=== PATIENT | female | born 1960 | race Caucasian/White ===

== ENCOUNTER 2017-10-19 17:48 | Observation (INO) | payer MEDICARE, OTHER ==
--- NOTE | 2017-10-19 18:28 | ED ---
Chest Pain HPI - General Source: patient Mode of arrival: ambulatory Limitations: no limitations <Tabitha Bentley - Last Filed: 10/19/17 19:35> <Emanuel Jarrell - Last Filed: 10/19/17 21:09> - General Chief Complaint: Chest Pain Stated Complaint: chest pains Time Seen by Provider: 10/19/17 18:17 - History of Present Illness Initial Comments: 27 years old female comes in with the chest pain, she said chest pain is ongoing for 2 days she does have a history of firm coronary arteries going into spasm and she states denies any shortness of breath shortness of breath only happens with the exertion she denies any pleuritic chest pain denies any fever no chills she has not been coughing up any phlegm she denies any abdominal pain no frequency urgency dysuria no symptoms of TIA or CVA (Tabitha Bentley) - Related Data Home Medications Medication Instructions Recorded Confirmed Aspirin 325 mg PO DAILY 04/18/15 10/19/17 Isosorbide Mononitrate ER [Imdur] 30 mg PO DAILY 04/18/15 10/19/17 Levothyroxine Sodium [Synthroid] 150 mcg PO DAILY 10/19/17 10/19/17 Allergies Allergy/AdvReac Type Severity Reaction Status Date / Time No Known Allergies Allergy Verified 10/19/17 18:25 Review of Systems ROS Other: All systems not noted in ROS Statement are negative. <Tabitha Bentley - Last Filed: 10/19/17 19:35> ROS Other: All systems not noted in ROS Statement are negative. <Emanuel Jarrell - Last Filed: 10/19/17 21:09> ROS Statement: Those systems with pertinent positive or pertinent negative responses have been documented in the HPI. EKG Findings - EKG Comments: EKG Findings:: EKG shows normal sinus rhythm rate of 89, AR 180, QRS 86, QTc 440 <Emanuel Jarrell - Last Filed: 10/19/17 21:09> Past Medical History Past Medical History: Diabetes Mellitus, Sleep Apnea/CPAP/BIPAP Additional Past Medical History / Comment(s): coronary arthery spasms, gallstones History of Any Multi-Drug Resistant Organisms: None Reported Past Surgical History: Hysterectomy, Joint Replacement Additional Past Surgical History / Comment(s): left knee replacement Past Anesthesia/Blood Transfusion Reactions: Family History of Problems w/ Anesthesia Additional Past Anesthesia/Blood Transfusion Reaction / Comment(s): sister has diff coming out Past Psychological History: No Psychological Hx Reported Smoking Status: Former smoker Past Alcohol Use History: None Reported Past Drug Use History: None Reported - Past Family History Sister(s) Family Medical History: Cancer, Deep Vein Thrombosis (DVT) <Tabitha Bentley - Last Filed: 10/19/17 19:35> General Exam Limitations: no limitations <Tabitha Bentley - Last Filed: 10/19/17 19:35> <Emanuel Jarrell - Last Filed: 10/19/17 21:09> - General Exam Comments Initial Comments: General: The patient is awake and alert, in no distress, and does not appear acutely ill. Skin: Skin is warm and dry and no rashes or lesions are noted. Eye: Pupils are equal, round and reactive to light, extra-ocular movements are intact; there is normal conjunctiva bilaterally. Ears, nose, mouth and throat: There are moist mucous membranes and no oral lesions. Neck: The neck is supple, there is no tenderness o. Cardiovascular: There is a regular rate and rhythm. No murmur, rub or gallop is appreciated. Respiratory: To auscultation bilateral, crease breath sounds in general no rales rhonchi's noticed Gastrointestinal: Soft, non-distended, non-tender abdomen without masses or organomegaly noted. There is no rebound or guarding present. Bowel sounds are unremarkable. Back: There is no tenderness to palpation in the midline. There is no obvious deformity. Musculoskeletal: Normal ROM, no tenderness, There is no pedal edema. There is no calf tenderness or swelling. No cords were appreciated. Neurological: CN II-XII intact, Cranial nerves III through XII are intact. There are no obvious motor or sensory deficits. Coordination appears grossly intact. Speech is normal. Psychiatric: Cooperative, appropriate mood & affect, normal judgment. (Tabitha Bentley) Course <Tabitha Bentley - Last Filed: 10/19/17 19:35> <Emanuel Jarrell - Last Filed: 10/19/17 21:09> Vital Signs 10/19/17 10/19/17 10/19/17 17:53 19:38 20:48 Temperature 97.6 F Pulse Rate 91 75 62 Respiratory 18 18 18 Rate Blood Pressure 146/77 119/66 114/66 O2 Sat by Pulse 97 97 97 Oximetry Patient endorsed to Dr Jarrell at 1935 for further evaluation and management ( Tabitha Bentley) Chest Pain MDM <Tabitha Bentley - Last Filed: 10/19/17 19:35> <Emanuel Jarrell - Last Filed: 10/19/17 21:09> - MDM 57 female the ER for evaluation of chest pain, obesity and diabetes, patient of urinary for cardiac observation (Emanuel Jarrell) Critical Care Time Critical Care Time: Yes Total Critical Care Time: 31 <Emanuel Jarrell - Last Filed: 10/19/17 21:09> Disposition <Tabitha Bentley - Last Filed: 10/19/17 19:35> <Emanuel Jarrell - Last Filed: 10/19/17 21:09> Clinical Impression: Chest pain Disposition: ADMITTED IP TO THIS HOSP Condition: Undetermined
[2017-10-19 18:55] LABS: Basophils % (A) 0 %; Eosinophils # (A) 0.2 k/uL (0-0.7); Eosinophils % (A) 3 %; HCT 39.4 % (34.0-46.0); Lymphocytes # (A) 1.3 k/uL (1.0-4.8); Lymphocytes % (A) 28 %; MCH 32.5 pg (25.0-35.0); MCHC 35.4 g/dL (31.0-37.0); MCV 91.8 fL (80.0-100.0); Mean Platelet Volume 6.7; Monocytes # (A) 0.2 k/uL (0-1.0); Monocytes % (A) 5 %; Neutrophils # (A) 2.7 k/uL (1.3-7.7); Neutrophils % (A) 61 %; Platelet Count 270 k/uL (150-450); RBC 4.29 m/uL (3.80-5.40); RDW 13.2 % (11.5-15.5); WBC 4.4 k/uL (3.8-10.6)
[2017-10-19 19:04] LABS: ALT 32 U/L (9-52); AST 37 U/L (14-36); Albumin 4.2 g/dL (3.5-5.0); Alkaline Phosphatase 93 U/L (38-126); Anion Gap 15 mmol/L; Blood Urea Nitrogen 13 mg/dL (7-17); Carbon Dioxide 22 mmol/L (22-30); Chloride 106 mmol/L (98-107); Glucose 167 mg/dL (74-99); Magnesium 1.9 mg/dL (1.6-2.3); Potassium 3.9 mmol/L (3.5-5.1); Sodium 143 mmol/L (137-145); Total Bilirubin 0.3 mg/dL (0.2-1.3); Total Protein 7.4 g/dL (6.3-8.2)
--- NOTE | 2017-10-19 19:09 | XR ---
EXAMINATION TYPE: XR chest 2V DATE OF EXAM: 10/19/2017 COMPARISON: 02/09/2012 HISTORY: Chest pain TECHNIQUE: Frontal and lateral views of the chest are obtained. FINDINGS: There is no focal air space opacity, pleural effusion, or pneumothorax seen. The cardiac silhouette size is within normal limits. The osseous structures are intact. [id number] multi level degenerative changes of the thoracic spine are noted. IMPRESSION: No acute cardiopulmonary process.
[2017-10-19 19:18] LABS: Creatine Kinase 109 U/L (30-135); Partial Thromboplastin Time 24.6 sec (22.0-30.0); Prothrombin Time 10.1 sec (9.0-12.0)
[2017-10-19 19:31] LABS: Creatine Kinase MB 0.6 ng/mL (0.0-2.4); Troponin I <0.012 ng/mL (0.000-0.034)
[2017-10-19] MEDS ORDERED: NITROGLYCERIN SL TABS 0.4 MG TAB SUBLINGUAL PRN (20:50)
[2017-10-19] MEDS ORDERED: HEPARIN SODIUM,PORCINE 5,000 UNIT/ML 1 ML VIAL IV ONE (20:50)
[2017-10-19] MEDS ORDERED: ASPIRIN 81 MG PO STA (20:57)
[2017-10-19] MEDS ORDERED: HEPARIN SODIUM,PORCINE 5,000 UNIT/ML 1 ML VIAL IV PRN (20:57)
[2017-10-19] MEDS ORDERED: HEPARIN SOD,PORK IN 0.45% NACL 25,000 UNIT in 0.45% NACL 1 500ML.BAG IV SCH (21:00)
[2017-10-19] MEDS: METOPROLOL TARTRATE 25 MG TAB PO SCH (22:11)
[2017-10-20 00:48] LABS: Creatine Kinase 95 U/L (30-135)
[2017-10-20 01:01] LABS: Creatine Kinase MB 0.5 ng/mL (0.0-2.4); Troponin I <0.012 ng/mL (0.000-0.034)
[2017-10-20 01:57] VITALS: RESP 16
[2017-10-20 07:17] LABS: Mean Platelet Volume 6.9; Platelet Count 176 k/uL (150-450)
[2017-10-20 07:45] LABS: Creatine Kinase 85 U/L (30-135)
[2017-10-20 07:58] LABS: Creatine Kinase MB 0.4 ng/mL (0.0-2.4); Troponin I <0.012 ng/mL (0.000-0.034)
[2017-10-20 08:54] LABS: Cholesterol 209 mg/dL (<200); HDL Cholesterol 49 mg/dL (40-60); LDL Cholesterol,Calculated 103 mg/dL (0-99); Triglycerides 283 mg/dL (<150)
[2017-10-20] MEDS ORDERED: ASPIRIN 325 MG TAB PO SCH (09:30)
[2017-10-20] MEDS: ATORVASTATIN 80 MG TAB PO SCH (09:49)
[2017-10-20] MEDS: METOPROLOL TARTRATE 25 MG TAB PO SCH ×2 (09:49→21:08)
[2017-10-20] MEDS: ASPIRIN 325 MG TAB PO SCH (09:49)
--- NOTE | 2017-10-20 09:56 | P.CRDCN ---
History of Present Illness History of present illness: Addendum to my note/consult Patient symptoms of recurrent chest discomfort dizziness feeling imbalanced and palpitations without any rhythm irregularities on examination her pulse are all consistent with the use of Imdur and possible intolerance to Imdur We have documented dips in blood pressure I would suggest continue Imdur, performing a tilt table test but my long-term plan is either to reduce Imdur or stop it completely. She is a diabetic and she needs to be on statins with the goal of at least 30-50 % reduction in her LDL Her baseline LDL is 103, total cholesterol 209, triglycerides 283 HDL 49 Renal function is normal BUN 13 creatinine 0.78 Impression Morbid obesity Atypical chest discomfort, recurrent with 3 normal cardiac enzymes and nonspecific ST-T changes on serial ECGs Past history of artery spasm that was diagnosed several years back Type 2 diabetes Obstructive sleep apnea using CPAP mask Possible intolerance to isosorbide that could explain her symptomatology Suggest 2-D echo and Doppler study to assess cardiac structure and function Weight reduction she is morbidly obese Reduce the dose of Imdur or stop it completely Statins with a goal of reducing the LDL to between 50-70 mg/dL The patient is a candidate for dajuan inhibitors/angiotensin receptor blockers but this may be an issue if she has fluctuating blood pressures. Hemoglobin A1c Past Medical History Past Medical History: Diabetes Mellitus, Sleep Apnea/CPAP/BIPAP, Thyroid Disorder Additional Past Medical History / Comment(s): coronary artery spasms History of Any Multi-Drug Resistant Organisms: None Reported Past Surgical History: Cholecystectomy, Hysterectomy, Joint Replacement Additional Past Surgical History / Comment(s): left knee replacement Past Anesthesia/Blood Transfusion Reactions: Family History of Problems w/ Anesthesia Additional Past Anesthesia/Blood Transfusion Reaction / Comment(s): sister has diff coming out Past Psychological History: No Psychological Hx Reported Smoking Status: Former smoker Past Alcohol Use History: None Reported Past Drug Use History: None Reported - Past Family History Sister(s) Family Medical History: Cancer, Deep Vein Thrombosis (DVT) Medications and Allergies Home Medications Medication Instructions Recorded Confirmed Type Aspirin 325 mg PO DAILY 04/18/15 10/19/17 History Isosorbide Mononitrate ER [Imdur] 30 mg PO DAILY 04/18/15 10/19/17 History Levothyroxine Sodium [Synthroid] 150 mcg PO DAILY 10/19/17 10/19/17 History Allergies Allergy/AdvReac Type Severity Reaction Status Date / Time No Known Allergies Allergy Verified 10/19/17 18:25 Physical Exam Vitals: Vital Signs Temp Pulse Pulse Pulse Pulse Resp BP 10/20/17 09:47 69 10/20/17 08:00 55 L 16 10/20/17 07:20 55 L 16 10/20/17 04:00 65 16 10/20/17 03:53 98.0 F 63 16 10/20/17 01:56 98.0 F 66 16 10/20/17 00:00 56 L 18 10/19/17 22:59 10/19/17 21:55 97.1 F L 64 64 18 10/19/17 21:30 98.0 F 96 18 124/72 10/19/17 20:48 62 18 114/66 10/19/17 19:38 75 18 119/66 10/19/17 17:53 97.6 F 91 18 146/77 BP Pulse Ox 10/20/17 09:47 121/63 10/20/17 08:00 10/20/17 07:20 99/59 94 L 10/20/17 04:00 10/20/17 03:53 125/62 94 L 10/20/17 01:56 119/69 92 L 10/20/17 00:00 104/57 96 10/19/17 22:59 97 10/19/17 21:55 125/74 97 10/19/17 21:30 96 10/19/17 20:48 97 10/19/17 19:38 97 10/19/17 17:53 97 Intake and Output 10/19/17 10/20/17 10/20/17 22:59 06:59 14:59 Intake Total 69.667 Balance 69.667 Intake: Intake, IV Titration 69.667 Amount Heparin Sod,Pork in 0.45% 69.667 NaCl 25,000 unit In 0.45 % NaCl 1 500ml.bag @ 8.48 UNITS/KG/HR 20 mls/hr IV .Q24H [facility] Rx#:[id number] Other: Voiding Method Toilet # Voids 1 1 Weight 117.934 kg Results 10/20/17 06:41 10/19/17 18:09 Cardiac Enzymes 10/19/17 10/19/17 10/20/17 Range/Units 18:09 18:09 00:04 AST 37 H (14-36) U/L CK-MB (CK-2) 0.6 0.5 (0.0-2.4) ng/mL Troponin I <0.012 <0.012 (0.000-0.034) ng/mL 10/20/17 Range/Units 06:41 AST (14-36) U/L CK-MB (CK-2) 0.4 (0.0-2.4) ng/mL Troponin I <0.012 (0.000-0.034) ng/mL Coagulation 10/19/17 10/20/17 10/20/17 Range/Units 18:09 00:04 06:41 PT 10.1 (9.0-12.0) sec APTT 24.6 33.6 H 58.1 H (22.0-30.0) sec Lipids 10/20/17 Range/Units 06:41 Triglycerides 283 H (<150) mg/dL Cholesterol 209 H (<200) mg/dL HDL Cholesterol 49 (40-60) mg/dL CBC 10/19/17 10/20/17 Range/Units 18:09 06:41 WBC 4.4 (3.8-10.6) k/uL RBC 4.29 (3.80-5.40) m/uL Hgb 14.0 (11.4-16.0) gm/dL Hct 39.4 (34.0-46.0) % Plt Count 270 176 (150-450) k/uL Comprehensive Metabolic Panel 10/19/17 Range/Units 18:09 Sodium 143 (137-145) mmol/L Potassium 3.9 (3.5-5.1) mmol/L Chloride 106 (98-107) mmol/L Carbon Dioxide 22 (22-30) mmol/L BUN 13 (7-17) mg/dL Creatinine 0.78 (0.52-1.04) mg/dL Glucose 167 H (74-99) mg/dL Calcium 9.0 (8.4-10.2) mg/dL AST 37 H (14-36) U/L ALT 32 (9-52) U/L Alkaline Phosphatase 93 (38-126) U/L Total Protein 7.4 (6.3-8.2) g/dL Albumin 4.2 (3.5-5.0) g/dL Current Medications Generic Name Dose Route Start Last Admin Trade Name Freq PRN Reason Stop Dose Admin Aspirin 325 mg 10/20/17 09:00 10/20/17 09:49 Aspirin PO 325 mg DAILY [facility] Administration Atorvastatin Calcium 80 mg 10/20/17 09:00 10/20/17 09:49 Lipitor PO 80 mg DAILY [facility] Administration Heparin Sodium (Porcine) 0 unit 10/19/17 20:57 10/20/17 00:58 Heparin IV 4,000 unit Q6HR PRN Administration Low PTT Protocol Isosorbide Mononitrate 30 mg 10/20/17 09:30 Imdur PO DAILY [facility] Levothyroxine Sodium 150 mcg 10/20/17 09:30 Synthroid PO DAILY@0630 [facility] Metoprolol Tartrate 25 mg 10/19/17 21:00 10/20/17 09:49 Lopressor PO 25 mg BID [facility] Administration Nitroglycerin 0.4 mg 10/19/17 20:50 Nitrostat SUBLINGUAL Q5M PRN Chest Pain Intake and Output 10/19/17 10/20/17 10/20/17 22:59 06:59 14:59 Intake Total 69.667 Balance 69.667 Intake: Intake, IV Titration 69.667 Amount Heparin Sod,Pork in 0.45% 69.667 NaCl 25,000 unit In 0.45 % NaCl 1 500ml.bag @ 8.48 UNITS/KG/HR 20 mls/hr IV .Q24H [facility] Rx#:[id number] Other: Voiding Method Toilet # Voids 1 1 Weight 117.934 kg 10/20/17 06:41 10/19/17 18:09
[2017-10-20] MEDS: LEVOTHYROXINE 75 MCG TAB PO SCH (10:02)
[2017-10-20] MEDS: ISOSORBIDE MONONITRATE ER 30 MG TAB.ER.24H PO SCH (10:18)
--- NOTE | 2017-10-20 10:24 | CONS ---
CONSULTATION A 57-year-old female presenting with: 1. Recurrent chest discomfort for the last 2 days, almost continuously through the day. 2. She states she feels a little off, as she is imbalanced and not herself. 3. She complains of a racing heartbeat, but when she takes her pulse it seems regular. At this time when I saw her she was using a CPAP mask. She woke up. She looked quite comfortable. No respiratory distress. Was not experiencing any chest discomfort. ALLERGIES: No known drug allergies. MEDICATIONS: Medications at home include isosorbide for coronary spasms, which she was diagnosed about 3 to 5 years back, aspirin and levothyroxine. REVIEW OF SYSTEMS: No fever, chills, or rigors. No cough or expectoration. No nausea, vomiting or diarrhea. No hematuria or dysuria. No definite strokes or seizures. PAST HISTORY: Past history of diabetes, obesity, morbid obesity, and obstructive sleep apnea and uses CPAP mask. PAST SURGICAL HISTORY: Past surgical history of hysterectomy, joint replacement. SOCIAL HISTORY: She was a former smoker. FAMILY HISTORY: Family history of DVT. PHYSICAL EXAMINATION: On examination, her blood pressure is 125/62 mmHg, and repeat blood pressure is 99/59 mmHg, pulse rate is in the 50s, temperature is normal. Head and neck examination is normal. Heart sounds S1, S2 are normal. No murmurs, no gallop, no rub. Breath sounds are clear. No rhonchi, no crackles. ABDOMEN: Soft, nontender. Extremities are warm. No edema. She has a body mass index is 47.6. IMPRESSION: 1. Recurrent dizziness and feeling of imbalance with dips in blood pressure noted. 2. Type 2 diabetes. 3. Morbid obesity. 4. Obstructive sleep apnea. 5. Atypical chest discomfort with nonspecific ECG changes and 3 normal cardiac enzymes. SUGGEST: 1. A 2-D echo and Doppler study to assess cardiac structure and function. 2. Orthostatics. 3. The patient is not on a statin. I will check her lipid panel and then start her on a statin. 4. The patient is not on JAMIL inhibitor or angiotensin receptor beth, but this may be an issue if her symptoms of imbalance are related to alterations in blood pressure, particularly since she has diabetes. A tilt-table test may be considered. MMODL / IJN: [id number] /
[2017-10-20] MEDS ORDERED: RX INFO: IV CONTRAST WAS GIVEN 1 EACH MISC MISCELLANE PRN (12:58)
--- NOTE | 2017-10-20 14:09 | HP ---
HISTORY AND PHYSICAL DATE OF ADMISSION: 10/19/2017 PRESENT COMPLAINT: Chest pressure, dizziness. HISTORY OF PRESENTING COMPLAINT: A very pleasant 57-year-old patient of Dr. Cobb. Chronic stable medical conditions include diabetes, obstructive sleep apnea uses CPAP machine, hypothyroid, and coronary artery spasms. Patient for 2 days is having some central chest discomfort for about 2 days present off and on. Patient thinks it is being brought on by a lot of stress she is having in her personal life. Patient is also having some reflux symptoms. There is no radiation to the neck or arm. Occasionally gets short of breath. No perspiration. Though patient gets dizzy, lightheadedness. Patient did feel off-balance a few times. Hence, she decided to present here for a further cardiac workup. Cardiology was consulted for the same. No change in vision. No focal weakness. Patient did have a stress test at [facility] about a year ago. REVIEW OF SYSTEMS: CONSTITUTIONAL: None. HEENT: As above. RESPIRATORY: As above. CARDIOVASCULAR: As above. GASTROINTESTINAL: Heartburn. GENITOURINARY: None. MUSCULOSKELETAL: None. DERMATOLOGICAL: None. HEMATOLOGICAL: None. LYMPHATICS: None. PSYCHIATRY: None. NEUROLOGICAL: As above. PAST MEDICAL HISTORY: Diabetes, also sleep apnea, hypothyroid, coronary artery vasospasm. PAST SURGICAL HISTORY: Cholecystectomy, hysterectomy, left knee replacement. SOCIAL HISTORY: Does not smoke. No alcohol. . FAMILY HISTORY: DVT, cancer type unknown. Mother of a heart attack at age of 70. HOME MEDICATIONS: 1. Synthroid 150 mcg p.o. daily. 2. Imdur ER 30 mg p.o. daily. 3. Aspirin 325 p.o. daily. ALLERGIES: None. PHYSICAL EXAMINATION: Temperature 97.7 pulse 72, respiration 16, blood pressure 120/72, pulse ox 92% on room air. GENERAL APPEARANCE: Well built, BMI 47.6, sitting up, comfortable. EYES: Pupils equal, conjunctivae normal. HEENT: External appearance of nose and ears normal, oral cavity normal. NECK: JVD not raised. Mass not palpable. Respiratory effort normal. LUNGS: Fair entry. CARDIOVASCULAR: First and second sounds normal. No edema. ABDOMEN: Soft, nontender. Liver and spleen not palpable. LYMPHATIC: No lymph node palpable in neck or axillae. PSYCHIATRY: Alert and oriented x3, mood and affect normal. NEUROLOGICAL: Pupils equal, cranial nerves grossly intact, power and sensation grossly intact. INVESTIGATIONS: White count 4.4, hemoglobin 14, platelets 270, potassium 3.9. BUN and creatinine normal. Troponin x3 negative. LDL is 103. EKG shows some poor R-wave progression. Nonspecific T-wave changes. ASSESSMENT: 1. This is a patient who presented with some central discomfort with some dizziness, lightheadedness, some shortness of breath, sometimes being off-balance with some nonspecific EKG changes for which reason Cardiology is being consulted, also given the off-balance features, will also get a neurological opinion and rule out a central cause for the same. 2. Morbid obesity, body mass index is 47.6. 3. Obstructive sleep apnea. Patient uses CPAP machine. 4. Hypothyroidism. 5. Coronary artery vasospasm for which patient is on nitrates. PLAN: Cardiology was consulted and Dr. Concepcion is planning to do a tilt-table test. Will get a CT scan angio of the brain and neck and also get a neurological consultation. Will have the dietitian see the patient for weight loss measures. Other home medications are resumed. Care was discussed with the patient. MMODL / IJN: [id number] /
[2017-10-20 14:22] VITALS: BMI 47.5
--- NOTE | 2017-10-20 16:21 | CT ---
EXAMINATION TYPE: CT head without contrast CT angio head neck DATE OF EXAM: 10/20/2017 COMPARISON: NONE HISTORY: 57-year-old female with episodes of Dizziness. TECHNIQUE: Contiguous axial scanning of the brain performed without IV contrast. Coronal and sagittal reconstructions performed. Subsequent scanning of the head and neck performed with IV Contrast, patient injected with 65ml mL of Isovue 370. Coronal/sagittal MIP reconstructions performed. 3-D reconstructions generated on a [employer] independent workstation. CT DLP: 1253.9 mGycm Automated exposure control for dose reduction was used. FINDINGS: Noncontrast Head: There is no evidence of acute intracranial hemorrhage, acute ischemic changes, mass, mass-effect, or extra-axial fluid collection. There is no effacement of cerebral sulci or basal subarachnoid cister ns. There is no hydrocephalus. There is no midline shift. Dubois-white matter distinction is preserv ed. Benign basal ganglionic calcifications. Minimal mucosal thickening within the posterior ethmoid air cells. Orbits and globes are intact. Mast oid air cells well pneumatized. CTA NECK: Bovine configuration to the aortic arch. The bilateral common carotid arteries are patent with retropharyngeal course. There are retropharyngeal bifurcations with focal tortuosity of the proximal left internal carotid ar sangita as well as the upper cervical right internal carotid artery causing focal kinking. No significan t atherosclerotic change or stenosis is identified. The left vertebral artery is dominant. Bilateral vertebral artery origins are patent and the vessels are patent throughout their course. CTA HEAD: Again, the left vertebral artery is dominant. Both vertebral arteries, basilar artery, and internal c arotid arteries remain patent. Prominent right posterior communicating artery There is venous contamination with cortical veins opacifying. The dural venous sinuses are patent. Le ft transverse sinus is hypoplastic, normal congenital variation. Both anterior and posterior circulations appear patent. No aneurysmal change identified IMPRESSION: 1. HEAD WITHOUT CONTRAST: NO ACUTE INTRACRANIAL ABNORMALITY SEEN. 2. CTA HEAD: NO SIGNIFICANT STENOSIS, ARTERIAL OCCLUSION, OR ANEURYSMAL CHANGE SEEN. 3. CTA NECK: NO HEMODYNAMICALLY SIGNIFICANT STENOSIS APPRECIATED IN EITHER INTERNAL CAROTID ARTERY. T HERE IS RETROPHARYNGEAL COURSE OF THE COMMON CAROTID ARTERIES AND RETROPHARYNGEAL BIFURCATIONS. FOCAL KINKING OF THE UPPER CERVICAL RIGHT INTERNAL CAROTID ARTERY DUE TO THE DEGREE OF TORTUOSITY.
[2017-10-20] MEDS: ENOXAPARIN 40 MG/0.4 ML SYRINGE SQ SCH (17:17)
--- NOTE | 2017-10-20 20:24 | P.CNNES ---
History of Present Illness Consult date: 10/20/17 History of Present Illness: The patient is a 57-year-old right-handed white female who states that Wednesday she developed chest pain in the retrosternal area. She was lightheaded and slightly confused. She just didn't feel right. She states she stopped taking Imdur 1 week ago because she ran out of medicine and was unable to fill her prescription. Wednesday she was also not feeling well and had continued chest pain. Wednesday she came to the emergency room with these complaints. The patient denied any focal weakness numbness visual changes or vertigo. She takes the indoor because of history of coronary artery spasms. Patient also has SONYA and diabetes. She takes 1 aspirin daily for her coronary artery vasospasm. Review of Systems Constitutional: Denies chills, Denies fever Eyes: denies blurred vision, denies pain Ears, nose, mouth and throat: Reports as per HPI Cardiovascular: Denies chest pain, Denies shortness of breath Respiratory: Reports as per HPI Gastrointestinal: Denies abdominal pain, Denies diarrhea, Denies nausea, Denies vomiting Musculoskeletal: Denies myalgias Integumentary: Denies pruritus, Denies rash Neurological: Reports as per HPI Psychiatric: Denies anxiety, Denies depression Past Medical History Past Medical History: Diabetes Mellitus, Sleep Apnea/CPAP/BIPAP, Thyroid Disorder Additional Past Medical History / Comment(s): coronary artery spasms History of Any Multi-Drug Resistant Organisms: None Reported Past Surgical History: Cholecystectomy, Hysterectomy, Joint Replacement Additional Past Surgical History / Comment(s): left knee replacement Past Anesthesia/Blood Transfusion Reactions: Family History of Problems w/ Anesthesia Additional Past Anesthesia/Blood Transfusion Reaction / Comment(s): sister has diff coming out Past Psychological History: No Psychological Hx Reported Smoking Status: Former smoker Past Alcohol Use History: None Reported Past Drug Use History: None Reported - Past Family History Sister(s) Family Medical History: Cancer, Deep Vein Thrombosis (DVT) Medications and Allergies Home Medications Medication Instructions Recorded Confirmed Type Aspirin 325 mg PO DAILY 04/18/15 10/19/17 History Isosorbide Mononitrate ER [Imdur] 30 mg PO DAILY 04/18/15 10/19/17 History Levothyroxine Sodium [Synthroid] 150 mcg PO DAILY 04/03/18 04/03/18 History Allergies Allergy/AdvReac Type Severity Reaction Status Date / Time No Known Allergies Allergy Verified 10/19/17 18:25 Physical Examination - Vital Signs Vital Signs: Vital Signs Temp Pulse Pulse Pulse Pulse Pulse Pulse 10/20/17 19:47 98.1 F 70 83 10/20/17 16:00 64 10/20/17 14:33 98 F 64 10/20/17 12:00 72 10/20/17 11:34 97.7 F 72 10/20/17 09:47 69 10/20/17 08:00 55 L 10/20/17 07:20 55 L 10/20/17 04:00 65 10/20/17 03:53 98.0 F 63 10/20/17 01:56 98.0 F 66 10/20/17 00:00 56 L 10/19/17 22:59 10/19/17 21:55 97.1 F L 64 64 10/19/17 21:30 98.0 F 96 10/19/17 20:48 62 Pulse Resp BP BP BP BP BP 10/20/17 19:47 67 16 109/64 115/69 107/60 10/20/17 16:00 16 10/20/17 14:33 16 121/63 10/20/17 12:00 16 10/20/17 11:34 16 129/62 10/20/17 09:47 121/63 10/20/17 08:00 16 10/20/17 07:20 16 99/59 10/20/17 04:00 16 10/20/17 03:53 16 125/62 10/20/17 01:56 16 119/69 10/20/17 00:00 18 104/57 10/19/17 22:59 10/19/17 21:55 18 125/74 10/19/17 21:30 18 124/72 10/19/17 20:48 18 114/66 Pulse Ox 10/20/17 19:47 94 L 10/20/17 16:00 10/20/17 14:33 93 L 10/20/17 12:00 10/20/17 11:34 92 L 10/20/17 09:47 10/20/17 08:00 10/20/17 07:20 94 L 10/20/17 04:00 10/20/17 03:53 94 L 10/20/17 01:56 92 L 10/20/17 00:00 96 10/19/17 22:59 97 10/19/17 21:55 97 10/19/17 21:30 96 10/19/17 20:48 97 Intake and Output 10/20/17 10/20/17 10/20/17 06:59 14:59 22:59 Intake Total 69.667 236 236 Balance 69.667 236 236 Intake: Intake, IV Titration 69.667 Amount Heparin Sod,Pork in 0.45% 69.667 NaCl 25,000 unit In 0.45 % NaCl 1 500ml.bag @ 8.48 UNITS/KG/HR 20 mls/hr IV .Q24H BENEDICT Rx#:[id number] Oral 236 236 Other: Voiding Method Toilet Toilet # Voids 1 3 Weight 117.934 kg - Constitutional General appearance: obese - EENT EENT: hearing intact - Respiratory Respiratory: lungs clear - Cardiovascular Cardiovascular: regular rate, normal S1 - Integumentary Integumentary: normal - Neurologic Mental status: She was awake alert and oriented chance of questions appropriately there is no aphasia or dysarthria Cranial nerve examination: PERRL, EOMI, V1/V2/V3 grossly intact, face symmetric , tongue midline Speech examination: intact Detailed motor examination: grossly full strength in all extremities - Psychiatric Psychiatric: mood/affect appropriate Results - Laboratory Findings CBC and BMP: 10/20/17 06:41 10/19/17 18:09 Abnormal Lab Findings: Abnormal Labs 10/19/17 10/20/17 10/20/17 18:09 00:04 06:41 APTT 33.6 H Glucose 167 H AST 37 H Triglycerides 283 H Cholesterol 209 H LDL Cholesterol, Calc 103 H 10/20/17 06:41 APTT 58.1 H Glucose AST Triglycerides Cholesterol LDL Cholesterol, Calc Assessment and Plan (1) Chest pain Current Visit: Yes Status: Acute SNOMED Code(s): 74444253 (2) Lightheadedness Current Visit: Yes Status: Acute SNOMED Code(s): 152585682 Plan: The patient is a 57-year-old woman with history of cardiac coronary artery vasospasm who presents to the hospital with chest pain. Neurology was requested see the patient regarding lightheadedness. The patient has no neurologic focal deficit. Her lightheadedness is likely related to the use or disuse of the medication Imdur she has had a CT of the brain which is unremarkable she also had a CTA of the head and neck which did not show any significant stenosis. Recommend follow-up with cardiology regarding the use of indoor. Also continue 325 mg aspirin daily
[2017-10-21] MEDS: ASPIRIN 325 MG TAB PO SCH (07:39)
[2017-10-21] MEDS: ENOXAPARIN 40 MG/0.4 ML SYRINGE SQ SCH (07:39)
[2017-10-21] MEDS: METOPROLOL TARTRATE 25 MG TAB PO SCH (07:39)
[2017-10-21] MEDS: ISOSORBIDE MONONITRATE ER 30 MG TAB.ER.24H PO SCH (07:39)
[2017-10-21] MEDS: LEVOTHYROXINE 75 MCG TAB PO SCH (07:39)
[2017-10-21] MEDS: ATORVASTATIN 80 MG TAB PO SCH (07:40)
--- NOTE | 2017-10-21 07:41 | ECHOF ---
Referral Reason:cp MEASUREMENTS -------- HEIGHT: 157.5 cm WEIGHT: 117.9 kg BP: 99/59 RVIDd: 2.9 cm (< 3.3) IVSd: 1.0 cm (0.6 - 1.1) LVIDd: 4.8 cm (3.9 - 5.3) LVPWd: 1.2 cm (0.6 - 1.1) IVSs: 1.7 cm LVIDs: 2.9 cm LVPWs: 1.9 cm LA Diam: 3.5 cm (2.7 - 3.8) Ao Diam: 3.1 cm (2.0 - 3.7) AV Cusp: 2.0 cm (1.5 - 2.6) MV EXCURSION: 14.924 mm (> 18.000) MV EF SLOPE: 45 mm/s (70 - 150) EPSS: 0.6 cm MV E Geronimo: 0.91 m/s MV DecT: 299 ms MV A Geronimo: 1.28 m/s MV E/A Ratio: 0.71 FINDINGS -------- Sinus rhythm. This was a technically adequate study. The left ventricular size is normal. There is borderline concentric left ventricular hypertrophy. Overall left ventricular systolic function is normal with, an EF between 55 - 60 %. The right ventricle is normal in size. The aortic valve is trileaflet and appears structurally normal. Mild mitral annular calcification present. The tricuspid valve was not well visualized. The pulmonic valve was not well visualized. The aortic root size is normal. IVC Not well visulized. There is no pericardial effusion. CONCLUSIONS -------- 1. Sinus rhythm. 2. This was a technically adequate study. 3. The left ventricular size is normal. 4. There is borderline concentric left ventricular hypertrophy. 5. Overall left ventricular systolic function is normal with, an EF between 55 - 60 %. 6. The right ventricle is normal in size. 7. The aortic valve is trileaflet and appears structurally normal. 8. Mild mitral annular calcification present. 9. The tricuspid valve was not well visualized. 10. The pulmonic valve was not well visualized. 11. The aortic root size is normal. 12. IVC Not well visulized. 13. There is no pericardial effusion. HOUSEKEEPING COORDINATOR: Latonia Russell RDCS
[2017-10-21] MEDS ORDERED: SODIUM CHLORIDE 0.9% 500 ML IV ONE (08:00)
[2017-10-21 11:37] VITALS: BP 93/50; PULSE 66; TEMP 97.9
--- NOTE | 2017-10-21 14:13 | P.PCN ---
Preoperative Diagnosis: Twelve-lead ECG was performed on October 19 and was reviewed and shows sinus rhythm normal NE narrow QRS no bradycardia arrhythmias tilt table test performed today Baseline that pressure 124/71 is a minute, Baseline heart is 65 beats a minute Impression was tilted upright at an angle of 70 per protocol for 30 minutes. There was no signal change in [place] blood pressurePatient underwent AV node modification and Bi V ICD interrogation and reprogramming before and after the procedure. He was monitored for 6 hours and the discharge home no change in medications. We will see him in the office in 3-4 days. Device is been programmed to the VVTR 90-130 no ECG changes noted she complained of chest pain as well as felt lightheaded blood pressure remained stable Impression Normal heart rate and blood pressure response to upright tilting
--- NOTE | 2017-10-21 17:52 | DS ---
DISCHARGE SUMMARY DATE OF ADMISSION: 10/19/2017. DATE OF DISCHARGE: 10/21/2017 FINAL DIAGNOSES: 1. Possible vertigo, cause unknown. 2. Morbid obesity with a body mass index of 47.6. 3. Obstructive sleep apnea. Patient uses CPAP machine. 4. Hypothyroidism. HOSPITAL COURSE: This patient presented with some systems, some dizziness, some chest pain. Patient did have a CT angio of the brain that did not show any major problems. Two- dimensional echocardiogram showed a preserved LV function. A tilt-table test was done by Dr. Song Concepcion; nurse called me to tell me that was negative. Dr. Concepcion did discontinue patient's nitrates. I thought that could be contributing to some of her symptoms. She has been taking that for a long time for a possible diagnosis of coronary vasospasm. That has now been discontinued. Patient was initially put on beta beth, did drop her blood pressure quite a bit; hence I am putting her on Zestoretic 04/29.5. Patient is told to lose weight. CONSULTATIONS: 1. Dr. Song Concepcion from Cardiology. 2. Dr. Ceci Velze from Neurology. The patient was cleared for discharge. PHYSICAL EXAMINATION: Lungs are clear. CARDIOVASCULAR: First and second sounds normal. DISCHARGE MEDICATIONS: 1. Synthroid 150 mcg a day. 2. Aspirin 81 mg a day. 3. Lipitor 20 mg at bedtime. 4. Zestoretic 04/29.5 one tablet p.o. daily. Follow up with Dr. Cobb in one week. MMODL / IJN: [id number] /
== END 2017-10-21 15:34 | disposition home or self-care (01) ==
LOC: EC 17:48 → 6SEL 20:50 → 3OBS 10-20 01:34
PROVIDERS: ADMIT Hospitalist; ATTEND Hospitalist
DX: R07.89 Other chest pain (principal); R42 Dizziness and giddiness; R00.2 Palpitations; E03.9 Hypothyroidism, unspecified; E11.9 Type 2 diabetes mellitus without complications; G47.33 Obstructive sleep apnea (adult) (pediatric); K21.9 Gastro-esophageal reflux disease without esophagitis; R41.0 Disorientation, unspecified; Z99.89 Dependence on other enabling machines and devices; E66.01 Morbid (severe) obesity due to excess calories; Z68.42 Body mass index [BMI] 45.0-49.9, adult; I20.1 Angina pectoris with documented spasm; Z79.82 Long term (current) use of aspirin; Z79.899 Other long term (current) drug therapy; Z96.652 Presence of left artificial knee joint; Z87.891 Personal history of nicotine dependence; Z90.710 Acquired absence of both cervix and uterus; Z82.49 Family history of ischemic heart disease and other diseases of the circulatory system; Z80.9 Family history of malignant neoplasm, unspecified
CPT/HCPCS: 96376 ×3; 96365 ×2; 99291 ×2; 93005 ×2; 96366 ×2; 96372 ×2; 36415; 93306; 93660; 80061; 80053; 82550 ×2; 82553 ×2; 83735; 84484 ×2; 85025; 85049; 85610; 85730 ×2; 71046; 70496; 70498; G0378 ×4; J1644 ×3; J1650 ×2; Q9967

== ENCOUNTER 2017-10-24 20:20 | Emergency (ER) | payer MEDICARE, OTHER ==
--- NOTE | 2017-10-24 20:49 | ED ---
General Adult HPI - General Chief complaint: Chest Pain Stated complaint: chest pain Time Seen by Provider: 10/24/17 20:41 Source: patient, RN notes reviewed, old records reviewed Mode of arrival: wheelchair Limitations: no limitations - History of Present Illness Initial comments: 57-year-old female presenting with anterior chest pain. Pain is sharp in nature , she does state it is associated with some mild dyspnea. She has history of obstructive sleep apnea, she has been using her CPAP throughout the day secondary to dyspnea. Denies any radiating character to pain. pain is been present for approximately the last 10 hours. Constant in nature. No fever or cough. Patient was seen with chest pain in the emergency department and admitted for further workup several days ago. She was discharged with some new medication changes. No abdominal pain. No nausea or vomiting. - Related Data Home Medications Medication Instructions Recorded Confirmed Levothyroxine Sodium [Synthroid] 150 mcg PO DAILY 10/19/17 10/19/17 Previous Rx's Medication Instructions Recorded Aspirin 81 mg PO DAILY #1 chewable 10/21/17 Atorvastatin Calcium [Lipitor] 20 mg PO HS #30 tab 10/21/17 Lisinopril-Hctz 10-12.5 mg 1 tab PO DAILY #30 tab 10/21/17 [Zestoretic 10-12.5] Allergies Allergy/AdvReac Type Severity Reaction Status Date / Time No Known Allergies Allergy Verified 10/24/17 20:28 Review of Systems ROS Statement: Those systems with pertinent positive or pertinent negative responses have been documented in the HPI. ROS Other: All systems not noted in ROS Statement are negative. Past Medical History Past Medical History: Diabetes Mellitus, Sleep Apnea/CPAP/BIPAP, Thyroid Disorder Additional Past Medical History / Comment(s): coronary artery spasms History of Any Multi-Drug Resistant Organisms: None Reported Past Surgical History: Cholecystectomy, Hysterectomy, Joint Replacement Additional Past Surgical History / Comment(s): left knee replacement Past Anesthesia/Blood Transfusion Reactions: Family History of Problems w/ Anesthesia Additional Past Anesthesia/Blood Transfusion Reaction / Comment(s): sister has diff coming out Past Psychological History: No Psychological Hx Reported Smoking Status: Former smoker Past Alcohol Use History: None Reported Past Drug Use History: None Reported - Past Family History Sister(s) Family Medical History: Cancer, Deep Vein Thrombosis (DVT) General Exam Limitations: no limitations General appearance: alert, in no apparent distress Head exam: Present: atraumatic, normocephalic Eye exam: Present: normal appearance, PERRL, EOMI ENT exam: Present: normal exam. Absent: normal oropharynx, mucous membranes dry Neck exam: Present: normal inspection. Absent: tenderness, meningismus Respiratory exam: Present: normal lung sounds bilaterally. Absent: respiratory distress, wheezes, chest wall tenderness Cardiovascular Exam: Present: regular rate, normal rhythm GI/Abdominal exam: Present: soft. Absent: distended, tenderness, guarding Extremities exam: Present: normal inspection, full ROM, normal capillary refill. Absent: tenderness, pedal edema Neurological exam: Present: alert, oriented X3, CN II-XII intact. Absent: motor sensory deficit Psychiatric exam: Present: normal affect, normal mood Skin exam: Present: warm, dry, intact. Absent: cyanosis, diaphoretic Course Vital Signs 10/24/17 20:26 Temperature 97.8 F Pulse Rate 85 Respiratory 18 Rate Blood Pressure 102/56 O2 Sat by Pulse 95 Oximetry EKG Findings - EKG Comments: EKG Findings:: EKG shows normal sinus rhythm, minimal voltage criteria for LVH ventricular rate 82, MA interval 160, QRS duration 82, QTC 446. No ST segment elevation or depression Medical Decision Making - Medical Decision Making 57-year-old female presenting with chest pain. Patient's pain is similar to chest pain that brought her to the emergency department several days ago. It has been present for approximately 10 hours at the time of initial evaluation. EKG shows normal sinus rhythm with no definitive signs of ischemia. Patient's pain has been constant for approximately 10 hours, and initial cardiac enzymes is negative, this is reassuring for noncardiac cause of her pain. Pain is atypical in nature. She did receive significant workup with her previous admission. These records are reviewed. 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 She will return with worsening or changing pain. Patient is comfortable with outpatient follow-up. She is agreeable and voices understanding. - Lab Data Result diagrams: 10/24/17 20:35 10/24/17 20:35 Lab Results 10/24/17 10/24/17 10/24/17 Range/Units 20:35 20:35 20:35 WBC 5.1 (3.8-10.6) k/uL RBC 4.45 (3.80-5.40) m/uL Hgb 14.3 (11.4-16.0) gm/dL Hct 40.9 (34.0-46.0) % MCV 91.8 (80.0-100.0) fL MCH 32.1 (25.0-35.0) pg MCHC 35.0 (31.0-37.0) g/dL RDW 13.2 (11.5-15.5) % Plt Count 257 (150-450) k/uL Neutrophils % 49 % Lymphocytes % 36 % Monocytes % 8 % Eosinophils % 5 % Basophils % 1 % Neutrophils # 2.5 (1.3-7.7) k/uL Lymphocytes # 1.8 (1.0-4.8) k/uL Monocytes # 0.4 (0-1.0) k/uL Eosinophils # 0.3 (0-0.7) k/uL Basophils # 0.0 (0-0.2) k/uL PT (9.0-12.0) sec INR (<1.2) APTT (22.0-30.0) sec Sodium 143 (137-145) mmol/L Potassium 4.3 (3.5-5.1) mmol/L Chloride 104 (98-107) mmol/L Carbon Dioxide 22 (22-30) mmol/L Anion Gap 17 mmol/L BUN 19 H (7-17) mg/dL Creatinine 0.90 (0.52-1.04) mg/dL Est GFR (CKD-EPI)AfAm 81 (>60 ml/min/1.73 sqM) Est GFR (CKD-EPI)NonAf 71 (>60 ml/min/1.73 sqM) Glucose 133 H (74-99) mg/dL Calcium 9.7 (8.4-10.2) mg/dL Magnesium 2.1 (1.6-2.3) mg/dL Total Bilirubin 0.5 (0.2-1.3) mg/dL AST 36 (14-36) U/L ALT 37 (9-52) U/L Alkaline Phosphatase 87 (38-126) U/L Total Creatine Kinase 104 (30-135) U/L CK-MB (CK-2) 0.4 (0.0-2.4) ng/mL CK-MB (CK-2) Rel Index 0.4 Troponin I <0.012 (0.000-0.034) ng/mL NT-Pro-B Natriuret Pep pg/mL Total Protein 8.1 (6.3-8.2) g/dL Albumin 4.6 (3.5-5.0) g/dL 10/24/17 10/24/17 Range/Units 20:35 20:35 WBC (3.8-10.6) k/uL RBC (3.80-5.40) m/uL Hgb (11.4-16.0) gm/dL Hct (34.0-46.0) % MCV (80.0-100.0) fL MCH (25.0-35.0) pg MCHC (31.0-37.0) g/dL RDW (11.5-15.5) % Plt Count (150-450) k/uL Neutrophils % % Lymphocytes % % Monocytes % % Eosinophils % % Basophils % % Neutrophils # (1.3-7.7) k/uL Lymphocytes # (1.0-4.8) k/uL Monocytes # (0-1.0) k/uL Eosinophils # (0-0.7) k/uL Basophils # (0-0.2) k/uL PT 10.2 (9.0-12.0) sec INR 1.0 (<1.2) APTT 24.9 (22.0-30.0) sec Sodium (137-145) mmol/L Potassium (3.5-5.1) mmol/L Chloride (98-107) mmol/L Carbon Dioxide (22-30) mmol/L Anion Gap mmol/L BUN (7-17) mg/dL Creatinine (0.52-1.04) mg/dL Est GFR (CKD-EPI)AfAm (>60 ml/min/1.73 sqM) Est GFR (CKD-EPI)NonAf (>60 ml/min/1.73 sqM) Glucose (74-99) mg/dL Calcium (8.4-10.2) mg/dL Magnesium (1.6-2.3) mg/dL Total Bilirubin (0.2-1.3) mg/dL AST (14-36) U/L ALT (9-52) U/L Alkaline Phosphatase (38-126) U/L Total Creatine Kinase (30-135) U/L CK-MB (CK-2) (0.0-2.4) ng/mL CK-MB (CK-2) Rel Index Troponin I (0.000-0.034) ng/mL NT-Pro-B Natriuret Pep 17 pg/mL Total Protein (6.3-8.2) g/dL Albumin (3.5-5.0) g/dL Disposition Clinical Impression: Atypical chest pain Disposition: HOME SELF-CARE Condition: Fair Instructions: Chest Pain (ED) Referrals: Natalio Cobb MD [Primary Care Provider] - 1-2 days Song Concepcion MD [STAFF PHYSICIAN] - 1-2 days Time of Disposition: 22:09
[2017-10-24 20:50] LABS: Basophils % (A) 1 %; Eosinophils # (A) 0.3 k/uL (0-0.7); Eosinophils % (A) 5 %; HCT 40.9 % (34.0-46.0); HGB 14.3 gm/dL (11.4-16.0); Lymphocytes # (A) 1.8 k/uL (1.0-4.8); Lymphocytes % (A) 36 %; MCH 32.1 pg (25.0-35.0); MCV 91.8 fL (80.0-100.0); Mean Platelet Volume 6.7; Monocytes # (A) 0.4 k/uL (0-1.0); Monocytes % (A) 8 %; Neutrophils # (A) 2.5 k/uL (1.3-7.7); Neutrophils % (A) 49 %; Platelet Count 257 k/uL (150-450); RBC 4.45 m/uL (3.80-5.40); RDW 13.2 % (11.5-15.5); WBC 5.1 k/uL (3.8-10.6)
[2017-10-24 21:05] LABS: Partial Thromboplastin Time 24.9 sec (22.0-30.0); Prothrombin Time 10.2 sec (9.0-12.0)
[2017-10-24 21:08] LABS: Albumin 4.6 g/dL (3.5-5.0); Calcium 9.7 mg/dL (8.4-10.2); Magnesium 2.1 mg/dL (1.6-2.3); Potassium 4.3 mmol/L (3.5-5.1); Total Bilirubin 0.5 mg/dL (0.2-1.3); Total Protein 8.1 g/dL (6.3-8.2)
[2017-10-24 21:12] LABS: Creatine Kinase 104 U/L (30-135)
--- NOTE | 2017-10-24 21:21 | XR ---
EXAMINATION TYPE: XR chest 2V DATE OF EXAM: 10/24/2017 COMPARISON: 10/19/2017 INDICATION: Chest pain TECHNIQUE: Frontal and lateral views of the chest are obtained. FINDINGS: The heart size is normal. The pulmonary vasculature is normal. The lungs are clear. Spondylosis within the thoracic spine IMPRESSION: 1. No acute pulmonary process.
[2017-10-24 21:25] LABS: Creatine Kinase MB 0.4 ng/mL (0.0-2.4); Troponin I <0.012 ng/mL (0.000-0.034)
[2017-10-24 23:16] VITALS: BP 106/58; PULSE 68; RESP 16; TEMP 98
== END 2017-10-24 23:15 | disposition home or self-care (01) ==
LOC: EC 20:20
DX: R07.89 Other chest pain (principal); R06.00 Dyspnea, unspecified; E07.9 Disorder of thyroid, unspecified; Z79.899 Other long term (current) drug therapy; Z87.891 Personal history of nicotine dependence
CPT/HCPCS: 36415; 71046; 80053; 82550; 82553; 83735; 83880; 84484; 85025; 85610; 85730; 93005; 99285

== ENCOUNTER 2018-04-03 19:28 | Emergency (ER) | payer MEDICARE, OTHER ==
[2018-04-03] MEDS ORDERED: SODIUM CHLORIDE 0.9% 1,000 ML IV STA (19:49)
[2018-04-03] MEDS ORDERED: SODIUM CHLORIDE 0.9% 500 ML IV STA (19:49)
--- NOTE | 2018-04-03 19:54 | ED ---
General Adult HPI - General Source: patient, family, RN notes reviewed, old records reviewed Mode of arrival: ambulatory Limitations: no limitations <Dre Tovar - Last Filed: 04/03/18 21:05> <Angelica Abraham - Last Filed: 04/03/18 23:15> - General Chief complaint: Abdominal Pain Stated complaint: abd pain - History of Present Illness Initial comments: Chief complaint and history of present illness this is a 57-year-old female here with family. The patient reports for the past 2-3 days she's had left lower quadrant pain. Slight decrease in appetite. Eats 1 meal per day. Reports she's had diarrhea which is actually something she's had off again and on again since having had her gallbladder removed. No blood in the stool. No change in urinary habits. (Dre Tovar) - Related Data Home Medications Medication Instructions Recorded Confirmed Levothyroxine Sodium [Synthroid] 150 mcg PO DAILY 10/19/17 04/03/18 Previous Rx's Medication Instructions Recorded Aspirin 81 mg PO DAILY #1 chewable 10/21/17 Atorvastatin Calcium [Lipitor] 20 mg PO HS #30 tab 10/21/17 Lisinopril-Hctz 10-12.5 mg 1 tab PO DAILY #30 tab 10/21/17 [Zestoretic 10-12.5] Amoxicillin/Potassium Clav 1 tab PO Q12HR 10 Days #20 tab 04/03/18 [Augmentin 875-125 Tablet] Allergies Allergy/AdvReac Type Severity Reaction Status Date / Time No Known Allergies Allergy Verified 04/03/18 19:38 Review of Systems ROS Other: All systems not noted in ROS Statement are negative. <Dre Tovar - Last Filed: 04/03/18 21:05> ROS Other: All systems not noted in ROS Statement are negative. <Angelica Abraham - Last Filed: 04/03/18 23:15> ROS Statement: Those systems with pertinent positive or pertinent negative responses have been documented in the HPI. Review of systems. No other complaints other than the left lower quadrant discomfort which is been persistent and getting slightly worse over the past 2 after 3 days. Patient's denying nausea or vomiting she has had diarrhea recently she states that happens frequently. All systems are reviewed. Past medical problems non-insulin diabetes mellitus, sleep apnea using CPAP, hypothyroidism and coronary artery spasms but no heart disease per se. Family history significant for colon and breast cancer. Patient advised to get colonoscopies and a regular basis and she has not started yet. Patient's surgeries include total hysterectomy, cholecystectomy, total left knee replacement. ALLERGIES none. Patient quit smoking over 35 years ago. Denies alcohol use. (Dre Tovar) Past Medical History Past Medical History: Diabetes Mellitus, Sleep Apnea/CPAP/BIPAP, Thyroid Disorder Additional Past Medical History / Comment(s): coronary artery spasms History of Any Multi-Drug Resistant Organisms: None Reported Past Surgical History: Cholecystectomy, Hysterectomy, Joint Replacement Additional Past Surgical History / Comment(s): left knee replacement Past Anesthesia/Blood Transfusion Reactions: Family History of Problems w/ Anesthesia Additional Past Anesthesia/Blood Transfusion Reaction / Comment(s): sister has diff coming out Past Psychological History: No Psychological Hx Reported Smoking Status: Former smoker Past Alcohol Use History: None Reported Past Drug Use History: None Reported - Past Family History Sister(s) Family Medical History: Cancer, Deep Vein Thrombosis (DVT) <Dre Tovar - Last Filed: 04/03/18 21:05> General Exam Limitations: no limitations <Dre Tovar - Last Filed: 04/03/18 21:05> <Angelica Abraham - Last Filed: 04/03/18 23:15> - General Exam Comments Initial Comments: General: The patient is awake and alert, here because of left lower quadrant pain ongoing for over 2-3 days. Associated with diarrhea but no nausea. No change in urinary habits. Temperature 99.5 pulse 86 respiratory rate 20 pulse ox 90% room air blood pressure 113/68 Eye: Pupils are equal, round and reactive to light, extra-ocular movements are intact ; there is normal conjunctiva bilaterally. No signs of icterus. Ears, nose, mouth and throat: There are moist mucous membranes and no oral lesions. Neck: The neck is supple, there is no tenderness. Cardiovascular: There is a regular rate and rhythm. No murmur, rub or gallop is appreciated. Respiratory: Lungs are clear to auscultation, respirations are non-labored, breath sounds are equal. No wheezes, stridor, rales, or rhonchi. Gastrointestinal: Patient complaining of left lower quadrant discomfort. Mild referred rebound pain to the left lower quadrant. No guarding. Active bowel sounds. No flank pain. No rash noted. Back: There is no tenderness to palpation in the midline. There is no obvious deformity. No rashes noted. Musculoskeletal: Normal ROM, no tenderness, Neurological: No complaint of any dizziness or neuro deficits. Skin: Skin is warm and dry and no rashes or lesions are noted. Psychiatric: Cooperative, appropriate mood & affect, (Dre Tovar) Vital Signs 04/03/18 04/03/18 19:35 21:14 Temperature 99.5 F 98.4 F Pulse Rate 86 Respiratory 20 Rate Blood Pressure 113/68 O2 Sat by Pulse 98 Oximetry Medical Decision Making - Lab Data Result diagrams: 04/03/18 19:46 04/03/18 19:46 <Dre Tovar - Last Filed: 04/03/18 21:05> - Lab Data Result diagrams: 04/03/18 19:46 04/03/18 19:46 <Angelica Abraham - Last Filed: 04/03/18 23:15> - Medical Decision Making Medical decision making; this is a 57-year-old female here with a complaint of left lower quadrant pain getting slightly worse over the past 3 days. Asians white count 7 hemoglobin 14 hematocrit 43 potassium 4.0. BUN 12 creatinine 0.91 and GFR 69. Glucose 124. Plasma lactic acid 1.1. UA no signs of infection. 2 views of the abdomen were done and reviewed by radiologist his impression is there is no sign of intestinal obstruction or pneumoperitoneum. Fecal pattern is normal lung bases are clear. There is no pathologic calcifications over the kidneys. There are phleboliths in the pelvis. Second iliac joints are normal. There is no evidence of a mass. Impression nonacute abdomen. As read by Dr. Caruso Due to the patient's discomfort to the left lower quadrant and the possibility of diverticulitis. The patient will have a CT of the abdomen and pelvis with IV and oral contrast. Patient is being hydrated prior to the administration of the IV and oral dye. Case is discussed at length and endorsed to Dr. Abraham (Dre Tovar) Introduced myself to patient after she was signed out to me. She was resting comfortably tolerating her PO contrast. Her CT showed mild diverticulitis of the sigmoid colon without complication. Discussed with patient outpatient management and she was agreeable. She was given her first dose of Augmentin the department. She states tomorrow her and her have a day-trip to [place] planned. I discussed with the patient if she is feeling well that she can go. No further emergent workup indicated. The patient was given return to ED instructions. They were instructed to follow up with their primary care provider this week. Stable for discharge at this time. (Angelica Abraham) - Lab Data Lab Results 04/03/18 04/03/18 04/03/18 Range/Units 19:46 19:46 19:46 WBC 7.2 (3.8-10.6) k/uL RBC 4.56 (3.80-5.40) m/uL Hgb 14.2 (11.4-16.0) gm/dL Hct 43.1 (34.0-46.0) % MCV 94.4 (80.0-100.0) fL MCH 31.2 (25.0-35.0) pg MCHC 33.0 (31.0-37.0) g/dL RDW 13.0 (11.5-15.5) % Plt Count 224 (150-450) k/uL Neutrophils % 73 % Lymphocytes % 19 % Monocytes % 6 % Eosinophils % 1 % Basophils % 0 % Neutrophils # 5.2 (1.3-7.7) k/uL Lymphocytes # 1.4 (1.0-4.8) k/uL Monocytes # 0.4 (0-1.0) k/uL Eosinophils # 0.1 (0-0.7) k/uL Basophils # 0.0 (0-0.2) k/uL Sodium 143 (137-145) mmol/L Potassium 4.0 (3.5-5.1) mmol/L Chloride 107 (98-107) mmol/L Carbon Dioxide 26 (22-30) mmol/L Anion Gap 10 mmol/L BUN 12 (7-17) mg/dL Creatinine 0.91 (0.52-1.04) mg/dL Est GFR (CKD-EPI)AfAm 80 (>60 ml/min/1.73 sqM) Est GFR (CKD-EPI)NonAf 69 (>60 ml/min/1.73 sqM) Glucose 124 H (74-99) mg/dL Plasma Lactic Acid Anselmo (0.7-2.0) mmol/L Calcium 9.2 (8.4-10.2) mg/dL Total Bilirubin 0.9 (0.2-1.3) mg/dL AST 28 (14-36) U/L ALT 29 (9-52) U/L Alkaline Phosphatase 72 (38-126) U/L Total Protein 7.8 (6.3-8.2) g/dL Albumin 4.4 (3.5-5.0) g/dL Amylase 47 (30-110) U/L Lipase 117 (23-300) U/L Urine Color Yellow Urine Appearance Clear (Clear) Urine pH 5.5 (5.0-8.0) Ur Specific [place] 1.022 (1.001-1.035) Urine Protein Trace H (Negative) Urine Glucose (UA) Negative (Negative) Urine Ketones Negative (Negative) Urine Blood Negative (Negative) Urine Nitrite Negative (Negative) Urine Bilirubin Negative (Negative) Urine Urobilinogen <2.0 (<2.0) mg/dL Ur Leukocyte Esterase Negative (Negative) 04/03/18 Range/Units 20:04 WBC (3.8-10.6) k/uL RBC (3.80-5.40) m/uL Hgb (11.4-16.0) gm/dL Hct (34.0-46.0) % MCV (80.0-100.0) fL MCH (25.0-35.0) pg MCHC (31.0-37.0) g/dL RDW (11.5-15.5) % Plt Count (150-450) k/uL Neutrophils % % Lymphocytes % % Monocytes % % Eosinophils % % Basophils % % Neutrophils # (1.3-7.7) k/uL Lymphocytes # (1.0-4.8) k/uL Monocytes # (0-1.0) k/uL Eosinophils # (0-0.7) k/uL Basophils # (0-0.2) k/uL Sodium (137-145) mmol/L Potassium (3.5-5.1) mmol/L Chloride (98-107) mmol/L Carbon Dioxide (22-30) mmol/L Anion Gap mmol/L BUN (7-17) mg/dL Creatinine (0.52-1.04) mg/dL Est GFR (CKD-EPI)AfAm (>60 ml/min/1.73 sqM) Est GFR (CKD-EPI)NonAf (>60 ml/min/1.73 sqM) Glucose (74-99) mg/dL Plasma Lactic Acid Anselmo 1.1 (0.7-2.0) mmol/L Calcium (8.4-10.2) mg/dL Total Bilirubin (0.2-1.3) mg/dL AST (14-36) U/L ALT (9-52) U/L Alkaline Phosphatase (38-126) U/L Total Protein (6.3-8.2) g/dL Albumin (3.5-5.0) g/dL Amylase (30-110) U/L Lipase (23-300) U/L Urine Color Urine Appearance (Clear) Urine pH (5.0-8.0) Ur Specific [place] (1.001-1.035) Urine Protein (Negative) Urine Glucose (UA) (Negative) Urine Ketones (Negative) Urine Blood (Negative) Urine Nitrite (Negative) Urine Bilirubin (Negative) Urine Urobilinogen (<2.0) mg/dL Ur Leukocyte Esterase (Negative) Disposition <Dre Tovar - Last Filed: 04/03/18 21:05> Is patient prescribed a controlled substance at d/c from ED?: No <Angelica Abraham - Last Filed: 04/03/18 23:15> Clinical Impression: Sigmoid diverticulitis Disposition: HOME SELF-CARE Condition: Good Instructions: Diverticulitis Diet (ED), Diverticulitis (ED) Additional Instructions: Return to ER if he developed fever while on the antibiotics, nausea vomiting, bloody stools, worsening abdominal pain. Prescriptions: Amoxicillin/Potassium Clav [Augmentin 875-125 Tablet] 1 tab PO Q12HR 10 Days # 20 tab
[2018-04-03 20:05] LABS: Basophils % (A) 0 %; Eosinophils # (A) 0.1 k/uL (0-0.7); Eosinophils % (A) 1 %; HCT 43.1 % (34.0-46.0); HGB 14.2 gm/dL (11.4-16.0); Lymphocytes # (A) 1.4 k/uL (1.0-4.8); Lymphocytes % (A) 19 %; MCH 31.2 pg (25.0-35.0); MCV 94.4 fL (80.0-100.0); Mean Platelet Volume 6.3; Monocytes # (A) 0.4 k/uL (0-1.0); Monocytes % (A) 6 %; Neutrophils # (A) 5.2 k/uL (1.3-7.7); Neutrophils % (A) 73 %; Platelet Count 224 k/uL (150-450); RBC 4.56 m/uL (3.80-5.40); WBC 7.2 k/uL (3.8-10.6)
[2018-04-03 20:15] LABS: Appearance,Urine Clear (Clear); Bilirubin,Urine Negative (Negative); Blood,Urine Negative (Negative); Color,Urine Yellow; Glucose,Urine (UA) Negative (Negative); Ketones,Urine Negative (Negative); Leukocyte Esterase,Urine Negative (Negative); Nitrite,Urine Negative (Negative); PH, Urine 5.5 (5.0-8.0); Protein,Urine Trace (Negative); Specific Gravity,Urine 1.022 (1.001-1.035); Urobilinogen,Urine <2.0 mg/dL (<2.0)
[2018-04-03 20:17] LABS: Albumin 4.4 g/dL (3.5-5.0); Calcium 9.2 mg/dL (8.4-10.2); Total Bilirubin 0.9 mg/dL (0.2-1.3); Total Protein 7.8 g/dL (6.3-8.2)
--- NOTE | 2018-04-03 20:28 | XR ---
EXAMINATION TYPE: XR abdomen 2V DATE OF EXAM: 04/03/2018 COMPARISON: NONE HISTORY: Left lower quadrant pain TECHNIQUE: 3 views FINDINGS: There is no sign of intestinal obstruction or pneumoperitoneum. Fecal pattern is normal. Bonnie ng bases are clear. There are no pathologic calcifications over the kidneys. There are phleboliths in the pelvis. Sacroiliac joints are normal. There is no evidence of a mass. IMPRESSION: Nonacute abdomen.
[2018-04-03] MEDS ORDERED: IOPAMIDOL-300 CONTRAST 30 ML VIAL (ORAL USE) PO PRN (20:33)
[2018-04-03 21:14] VITALS: TEMP 98.4
--- NOTE | 2018-04-03 23:02 | CT ---
EXAMINATION TYPE: CT abdomen pelvis w con DATE OF EXAM: 04/03/2018 COMPARISON: None HISTORY: Left lower quadrant pain with diarrhea and nausea. CT DLP: 3435.8 mGycm Automated exposure control for dose reduction was used. TECHNIQUE: Helical acquisition of images was performed from the lung bases through the pelvis. CONTRAST: Performed with Oral Contrast and with IV Contrast, patient injected with 80 mL of Isovue 300. FINDINGS: Lung bases are clear of consolidation. There is no pleural effusion. Heart size is normal. Liver spleen pancreas appear normal. Bile ducts are not dilated. There is probably a tiny amount of a ir in the common bile duct. There is no adrenal mass. Kidneys show satisfactory contrast opacification. There is no hydronephrosi s. There is 8 cm cortical cyst on the anterior right kidney. There is no retroperitoneal adenopathy. There are some inflammatory changes with fat stranding around the proximal sigmoid colon. There are s ome sigmoid proximal diverticula. There is no evidence of a bowel obstruction. There is no free air. There is no ascites. Bladder distends smoothly. Appendix is not definitely seen. IMPRESSION: There is a small area of focal diverticulitis involving proximal sigmoid colon. Large right renal cyst. No renal obstruction.
[2018-04-03] MEDS ORDERED: AMOXIC-POT CLAV 875MG STARTER 2 EACH TABLET PO STA (23:10)
[2018-04-03 23:30] VITALS: BP 125/60; PULSE 98; RESP 16
== END 2018-04-03 23:32 | disposition home or self-care (01) ==
LOC: EC 19:28
DX: K57.32 Diverticulitis of large intestine without perforation or abscess without bleeding (principal); G47.30 Sleep apnea, unspecified; Z99.89 Dependence on other enabling machines and devices; E03.9 Hypothyroidism, unspecified; Z87.891 Personal history of nicotine dependence; Z79.899 Other long term (current) drug therapy; Z96.652 Presence of left artificial knee joint; Z90.49 Acquired absence of other specified parts of digestive tract
CPT/HCPCS: 36415; 80053; 82150; 83605; 83690; 85025; 81003; 87086; 74019; 74177; 99285; 96360; Q9967

== ENCOUNTER 2018-07-09 12:55 | Emergency (ER) | payer MEDICARE ==
[2018-07-09] MEDS ORDERED: KETOROLAC 60 MG/2 ML VIAL IM STA (13:45)
[2018-07-09] MEDS ORDERED: SODIUM CHLORIDE 0.9% 1,000 ML IV STA (14:41)
[2018-07-09 15:08] LABS: ALT 38 U/L (9-52); AST 45 U/L (14-36); Albumin 4.8 g/dL (3.5-5.0); Alkaline Phosphatase 96 U/L (38-126); Anion Gap 10 mmol/L; Blood Urea Nitrogen 16 mg/dL (7-17); Calcium 9.7 mg/dL (8.4-10.2); Carbon Dioxide 26 mmol/L (22-30); Chloride 107 mmol/L (98-107); Glucose 136 mg/dL (74-99); Potassium 4.7 mmol/L (3.5-5.1); Sodium 143 mmol/L (137-145); Total Bilirubin 0.5 mg/dL (0.2-1.3); Total Protein 8.6 g/dL (6.3-8.2)
--- NOTE | 2018-07-09 16:05 | CT ---
EXAMINATION TYPE: CT abdomen pelvis w con DATE OF EXAM: 07/09/2018 COMPARISON: 04/03/2018 HISTORY: Lower back pain CT DLP: 2365.7 mGycm Automated exposure control for dose reduction was used. TECHNIQUE: Helical acquisition of images was performed from the lung bases through the pelvis. CONTRAST: Performed without Oral Contrast and with IV Contrast, patient injected with 100 mL of Isovue 300. FINDINGS: Lung bases are clear. There is no pleural effusion. Heart size is normal. There is no pericardial eff usion. Liver shows no focal defect. There is no evidence of a splenic mass. There is no pancreatic mass. The re is low-attenuation 8 mm focus in the distal common bile duct. This appears unchanged compared to o ld exam and could be a duodenal diverticulum or unusual cholesterol gallstone containing air. . This is unchanged. The intrahepatic bile ducts are not dilated. Gallbladder is absent. There is no adrenal mass. Kidneys show satisfactory contrast opacification. There is no hydronephrosi s. There is 8.3 cm cortical cyst anterior right kidney. There is no retroperitoneal adenopathy. There is broad-based umbilical hernia that contains fat. Bladder is empty. There is no pelvic mass. There is no inguinal hernia. There are multiple sigmoid di verticula. There is no evidence of diverticulitis. Appendix appears normal. There is no mesenteric ed baljinder or adenopathy. There are some mild spondylotic changes in the lumbar spine. Bony pelvis is intact. I see no focal ferdinand ne destruction. IMPRESSION: THERE IS SMALL AIR BUBBLE ADJACENT OR WITHIN THE DISTAL COMMON BILE DUCT. IS UNCHANGED COMPARED TO OL D EXAM AND CLINICAL SIGNIFICANCE IS NOT CLEAR. THE BILE DUCTS ARE NOT DILATED. There is clearing of the sigmoid diverticulitis compared to old exam. No acute abnormality.
--- NOTE | 2018-07-09 16:46 | ED ---
General Adult HPI - General Chief complaint: Back Pain/Injury Stated complaint: Back Pain Source: patient, RN notes reviewed, old records reviewed Mode of arrival: ambulatory Limitations: no limitations - History of Present Illness Initial comments: 58-year-old female patient past month history of diverticulitis presents to ED with left paralumbar back pain that has been ongoing for 4 days. Patient states that her back began bothering her while she was doing housework approximately 4 days ago. Patient denies all other complaints. Patient denies chest pain, shortness of breath, abdominal pain, nausea vomiting diarrhea, any other symptoms. Patient states that her pain is worse with exertion. Patient is taken tylenol/Motrin for pain which has given her some relief. Systemic: Pt denies fatigue, myalgia, fever/chills, rash. Pt denies weakness, night sweats, weight loss. Neuro: Pt denies headache, visual disturbances, syncope or pre-syncope. HEENT: Pt denies ocular discharge or irritation, otalgia, rhinorrhea, pharyngitis or notable lymphadenopathy. Cardiopulmonary: Pt denies chest pain, SOB, heart palpitations, dyspnea on exertion. Abdominal/GI: Pt denies abdominal pain, n/v/d. : Pt denies dysuria, burning w/ urination, frequency/urgency. Denies new onset urinary or bowel incontinence. MSK: Pt denies myalgia, loss of strength or function in extremities. Neuro: Pt denies new onset weakness, paresthesias. - Related Data Home Medications Medication Instructions Recorded Confirmed Levothyroxine Sodium [Synthroid] 150 mcg PO DAILY 10/19/17 04/03/18 Previous Rx's Medication Instructions Recorded Aspirin 81 mg PO DAILY #1 chewable 10/21/17 Atorvastatin Calcium [Lipitor] 20 mg PO HS #30 tab 10/21/17 Lisinopril-Hctz 10-12.5 mg 1 tab PO DAILY #30 tab 10/21/17 [Zestoretic 10-12.5] Amoxicillin/Potassium Clav 1 tab PO Q12HR 10 Days #20 tab 04/03/18 [Augmentin 875-125 Tablet] Cyclobenzaprine [Flexeril] 1 - 2 tab PO TID #20 tablet 07/09/18 Ibuprofen [Motrin] 600 mg PO Q6HR PRN #40 day 07/09/18 Allergies Allergy/AdvReac Type Severity Reaction Status Date / Time No Known Allergies Allergy Verified 07/09/18 13:00 Review of Systems ROS Statement: Those systems with pertinent positive or pertinent negative responses have been documented in the HPI. ROS Other: All systems not noted in ROS Statement are negative. Past Medical History Past Medical History: Diabetes Mellitus, Sleep Apnea/CPAP/BIPAP, Thyroid Disorder Additional Past Medical History / Comment(s): coronary artery spasms History of Any Multi-Drug Resistant Organisms: None Reported Past Surgical History: Cholecystectomy, Hysterectomy, Joint Replacement Additional Past Surgical History / Comment(s): left knee replacement Past Anesthesia/Blood Transfusion Reactions: Family History of Problems w/ Anesthesia Additional Past Anesthesia/Blood Transfusion Reaction / Comment(s): sister has diff coming out Past Psychological History: No Psychological Hx Reported Smoking Status: Former smoker Past Alcohol Use History: None Reported Past Drug Use History: None Reported - Past Family History Sister(s) Family Medical History: Cancer, Deep Vein Thrombosis (DVT) General Exam - General Exam Comments Initial Comments: Constitutional: NAD, AOX3, Pt has pleasant affect. HEENT: NC/AT, trachea midline, neck supple, no lymphadenopathy. Posterior pharynx non erythematous, without exudates. External ears appear normal, without discharge. Mucous membranes moist. Eyes PERRLA, EOM intact. There is no scleral icterus. No pallor noted. Cardiopulmonary: RRR, no murmurs, rubs or gallops, no JVD noted. Lungs CTAB in anterior and posterior morrison. No peripheral edema. Abdominal exam: Abdomen soft and non-distended. Abdomen non-tender to palpation in all 4 quadrants. Bowel sounds active in LLQ. No hepatosplenomegaly. No ecchymosis Neuro: CN II-XII grossly intact. No nuchal rigidity. MSK: Left paralumbar mildly tender to palpation. No midline cervical, thoracic , lumbar tenderness. Left straight leg raise positive. At straight leg raise negative. Patient is ambulatory without difficulty. Heel to toe walking intact. Psoas and quadriceps strength 5 out of 5 bilaterally. Patellar and Achilles reflex 2/4 bilaterally. No posterior calf tenderness bilaterally, homans sign negative bilaterally. Posterior tibialis and radial pulse +2 bilaterally. Sensation intact in upper and lower extremities. Full active ROM in upper and lower extremities, 5/5 stregnth. Limitations: no limitations Course Vital Signs 1207/09/18 07/09/18 12:58 15:56 16:54 Temperature 97.8 F 98 F Pulse Rate 85 66 70 Respiratory 18 16 18 Rate Blood Pressure 147/78 133/73 121/60 O2 Sat by Pulse 99 98 98 Oximetry Medical Decision Making - Medical Decision Making 58-year-old female patient past month history of diverticulitis presents to ED with left paralumbar back pain that has been ongoing for 4 days. Patient denied all other symptoms. Physical exam displayed Left paralumbar mildly tender to palpation. No midline cervical, thoracic, lumbar tenderness. Left straight leg raise positive. At straight leg raise negative. Patient is ambulatory without difficulty. Heel to toe walking intact. Psoas and quadriceps strength 5 out of 5 bilaterally. Patellar and Achilles reflex 2/[address] abdomen and pelvis does not display any acute process. Patient diagnosed Musko skeletal with lumbar strain. Patient given Toradol and ED which improved symptoms. Patient prescribed Flexeril and ibuprofen to use as needed for pain. Patient to follow with primary care provider in 1-2 days. Patient to return to ED if any signs or symptoms develop. Case discussed with Dr. Ray. - Lab Data Result diagrams: 07/09/18 14:45 Lab Results 07/09/18 Range/Units 14:45 Sodium 143 (137-145) mmol/L Potassium 4.7 (3.5-5.1) mmol/L Chloride 107 (98-107) mmol/L Carbon Dioxide 26 (22-30) mmol/L Anion Gap 10 mmol/L BUN 16 (7-17) mg/dL Creatinine 0.81 (0.52-1.04) mg/dL Est GFR (CKD-EPI)AfAm >90 (>60 ml/min/1.73 sqM) Est GFR (CKD-EPI)NonAf 80 (>60 ml/min/1.73 sqM) Glucose 136 H (74-99) mg/dL Calcium 9.7 (8.4-10.2) mg/dL Total Bilirubin 0.5 (0.2-1.3) mg/dL AST 45 H (14-36) U/L ALT 38 (9-52) U/L Alkaline Phosphatase 96 (38-126) U/L Total Protein 8.6 H (6.3-8.2) g/dL Albumin 4.8 (3.5-5.0) g/dL Disposition Clinical Impression: Strain of lumbar region Disposition: HOME SELF-CARE Condition: Good Instructions: Acute Low Back Pain (ED), Chronic Back Pain (ED) Additional Instructions: Patient to adhere to previously discussed treatment plan and will take medication(s) as directed. Patient to follow up with PCP in 1-2 days. Patient to return to ED if symptoms do not improve. Prescriptions: Cyclobenzaprine [Flexeril] 1 - 2 tab PO TID #20 tablet Ibuprofen [Motrin] 600 mg PO Q6HR PRN #40 day PRN Reason: Pain Is patient prescribed a controlled substance at d/c from ED?: No Referrals: Gopi Abraham MD [Primary Care Provider] - 1-2 days Time of Disposition: 16:46
[2018-07-09 16:55] VITALS: BP 121/60; PULSE 70; RESP 18; TEMP 98
== END 2018-07-09 16:54 | disposition home or self-care (01) ==
LOC: EC 12:55
DX: S39.012A Strain of muscle, fascia and tendon of lower back, initial encounter (principal); E07.9 Disorder of thyroid, unspecified; G47.30 Sleep apnea, unspecified; Z99.89 Dependence on other enabling machines and devices; Z87.891 Personal history of nicotine dependence; Z79.899 Other long term (current) drug therapy; Z96.652 Presence of left artificial knee joint; Z53.8 Procedure and treatment not carried out for other reasons
CPT/HCPCS: 36415; 80053; 74177; 99284; 96360; 96372; J1885; Q9967

== ENCOUNTER 2018-09-12 16:19 | Observation (INO) | payer MEDICARE ==
--- NOTE | 2018-09-12 17:30 | ED ---
Chest Pain HPI - General Chief Complaint: Chest Pain Stated Complaint: chest pain Time Seen by Provider: 09/12/18 17:27 Source: patient, RN notes reviewed, old records reviewed Mode of arrival: ambulatory Limitations: no limitations - History of Present Illness Initial Comments: This is a 4-year-old female the ER for evasive chest pain history of diabetes. Issue of coronary artery vasospasm no recent cardiac catheterization. A she coming in the ER for chest pain. Patient does take Imdur. Chest pain at night presents today for persistent chest pain. Patient's pain is persistent despite nitro. No travel history no sick contacts. MD Complaint: chest pain -: hour(s) Onset: during rest Pain Location: substernal, left chest Pain Radiation: none Severity: mild Severity scale (1-10): 3 Quality: tightness, heaviness Consistency: constant Improves With: nothing Worsens With: nothing Context: other (None) Anginal Symptoms: diaphoresis Other Symptoms: palpitations Treatments Prior to Arrival: none - Related Data Home Medications Medication Instructions Recorded Confirmed Isosorbide Mononitrate ER [Imdur] 30 mg PO DAILY 09/12/18 09/12/18 Levothyroxine Sodium [Synthroid] 175 mcg PO DAILY 09/12/18 09/12/18 Allergies Allergy/AdvReac Type Severity Reaction Status Date / Time No Known Allergies Allergy Verified 09/12/18 17:28 Review of Systems ROS Statement: Those systems with pertinent positive or pertinent negative responses have been documented in the HPI. ROS Other: All systems not noted in ROS Statement are negative. EKG Findings - EKG Comments: EKG Findings:: EKG shows sinus rhythm rate of 70, TX 180, QRS 90, QTc 442 Past Medical History Past Medical History: Diabetes Mellitus, Sleep Apnea/CPAP/BIPAP, Thyroid Disorder Additional Past Medical History / Comment(s): coronary artery spasms History of Any Multi-Drug Resistant Organisms: None Reported Past Surgical History: Cholecystectomy, Hysterectomy, Joint Replacement Additional Past Surgical History / Comment(s): left knee replacement Past Anesthesia/Blood Transfusion Reactions: Family History of Problems w/ Anesthesia Additional Past Anesthesia/Blood Transfusion Reaction / Comment(s): sister has diff coming out Past Psychological History: No Psychological Hx Reported Smoking Status: Former smoker Past Alcohol Use History: None Reported Past Drug Use History: None Reported - Past Family History Sister(s) Family Medical History: Cancer, Deep Vein Thrombosis (DVT) General Exam Limitations: no limitations General appearance: alert, in no apparent distress Head exam: Present: atraumatic, normocephalic, normal inspection Eye exam: Present: normal appearance, PERRL, EOMI. Absent: scleral icterus, conjunctival injection, periorbital swelling ENT exam: Present: normal exam, mucous membranes moist Neck exam: Present: normal inspection. Absent: tenderness, meningismus, lymphadenopathy Respiratory exam: Present: normal lung sounds bilaterally. Absent: respiratory distress, wheezes, rales, rhonchi, stridor Cardiovascular Exam: Present: regular rate, normal rhythm, normal heart sounds. Absent: systolic murmur, diastolic murmur, rubs, gallop, clicks GI/Abdominal exam: Present: soft, normal bowel sounds. Absent: distended, tenderness, guarding, rebound, rigid Extremities exam: Present: normal inspection, full ROM, normal capillary refill. Absent: tenderness, pedal edema, joint swelling, calf tenderness Back exam: Present: normal inspection Neurological exam: Present: alert, oriented X3, CN II-XII intact Psychiatric exam: Present: normal affect, normal mood Skin exam: Present: warm, dry, intact, normal color. Absent: rash Course Vital Signs 09/12/18 09/12/18 09/12/18 16:37 17:32 18:30 Temperature 98.1 F Pulse Rate 75 61 63 Respiratory 18 18 18 Rate Blood Pressure 135/72 152/80 122/73 O2 Sat by Pulse 97 99 93 L Oximetry 09/12/18 19:00 Temperature Pulse Rate 62 Respiratory 18 Rate Blood Pressure 151/76 O2 Sat by Pulse 98 Oximetry - Reevaluation(s) Reevaluation #1: 09/12/18 19:07 Medical record is reviewed - Consultations Consultation #1: Spoke with Dr. Jarad lawrence for admission Chest Pain MDM - MDM 58 female the ER for evaluation positive chest pain history of coronary vasospasm. Patient be admitted for cardiac observation Critical Care Time Critical Care Time: Yes Total Critical Care Time: 31 Disposition Clinical Impression: Chest pain Disposition: ADMITTED IP TO THIS [facility] Condition: Undetermined Instructions (If sedation given, give patient instructions): Chest Pain (ED) Is patient prescribed a controlled substance at d/c from ED?: No Referrals: Gopi Abraham MD [Primary Care Provider] - 1-2 days
[2018-09-12 17:44] LABS: Basophils % (A) 1 %; Eosinophils # (A) 0.2 k/uL (0-0.7); Eosinophils % (A) 6 %; HCT 42.6 % (34.0-46.0); HGB 14.5 gm/dL (11.4-16.0); Lymphocytes # (A) 1.2 k/uL (1.0-4.8); Lymphocytes % (A) 31 %; MCH 32.5 pg (25.0-35.0); MCHC 34.1 g/dL (31.0-37.0); MCV 95.5 fL (80.0-100.0); Mean Platelet Volume 6.5; Monocytes # (A) 0.2 k/uL (0-1.0); Monocytes % (A) 6 %; Neutrophils # (A) 2.1 k/uL (1.3-7.7); Neutrophils % (A) 55 %; Platelet Count 244 k/uL (150-450); RBC 4.46 m/uL (3.80-5.40); RDW 13.7 % (11.5-15.5); WBC 3.8 k/uL (3.8-10.6)
[2018-09-12 18:01] LABS: Albumin 4.7 g/dL (3.5-5.0); Calcium 9.8 mg/dL (8.4-10.2); Magnesium 1.9 mg/dL (1.6-2.3); Potassium 4.1 mmol/L (3.5-5.1); Total Bilirubin 0.6 mg/dL (0.2-1.3); Total Protein 8.3 g/dL (6.3-8.2)
[2018-09-12 18:15] LABS: Partial Thromboplastin Time 25.4 sec (22.0-30.0); Prothrombin Time 10.5 sec (9.0-12.0)
--- NOTE | 2018-09-12 18:15 | XR ---
EXAMINATION TYPE: XR chest 2V DATE OF EXAM: 09/12/2018 COMPARISON: 10/24/2017 HISTORY: Chest pain TECHNIQUE: Frontal and lateral views of the chest are obtained. FINDINGS: Heart and mediastinum are normal. Lungs are clear of infiltrate. There is no heart failure . There are chest leads. There is minor spurring in the thoracic spine. There is some calcific tendin itis at the right shoulder joint noted. IMPRESSION: No active cardiopulmonary disease. No change.
[2018-09-12] MEDS ORDERED: HEPARIN SODIUM,PORCINE 5,000 UNIT/ML 1 ML VIAL IV ONE (19:05)
[2018-09-12] MEDS ORDERED: HEPARIN SODIUM,PORCINE 5,000 UNIT/ML 1 ML VIAL IV PRN (19:05)
[2018-09-12] MEDS ORDERED: HEPARIN SOD,PORK IN 0.45% NACL 25,000 UNIT in 0.45% NACL 1 250ML.BAG IV SCH (19:15)
[2018-09-12] MEDS: NITROGLYCERIN SL TABS 0.4 MG TAB SUBLINGUAL PRN ×3 (19:39→20:02)
[2018-09-12 20:25] VITALS: BMI 48.7
[2018-09-12] MEDS: METOPROLOL TARTRATE 25 MG TAB PO SCH (20:26)
[2018-09-12 20:34] LABS: Glucose,Whole Blood 132 mg/dL (75-99)
[2018-09-13 06:20] LABS: Mean Platelet Volume 6.1; Platelet Count 217 k/uL (150-450)
[2018-09-13 06:34] LABS: Glucose,Whole Blood 161 mg/dL (75-99)
[2018-09-13 06:38] LABS: Cholesterol 210 mg/dL (<200); HDL Cholesterol 41 mg/dL (40-60); LDL Cholesterol,Calculated 107 mg/dL (0-99); Triglycerides 312 mg/dL (<150)
--- NOTE | 2018-09-13 07:12 | P.HPIM ---
History of Present Illness H&P Date: 09/13/18 Chief Complaint: Chest pain This is history of physical 58-year-old white female essentially admitted for significant substernal chest pressure which was relieved yesterday with 3 nitroglycerin. She's been pain-free since but has a history of vasospasm and cardiac catheterization at [facility] in the past. The patient, as stated is now pain-free and struggles with sleep apnea but rested fairly nominal he with CPAP device. The patient has an underlying history of hypothyroidism. No fever or chills stated. No sniffing nausea, vomiting or diarrhea. When she had the chest pain was no stated diaphoresis stated. The patient is a nontobacco user. Review of Systems Constitutional: Denies chills, Denies fever Eyes: denies blurred vision, denies pain Ears, nose, mouth and throat: Denies headache, Denies sore throat Cardiovascular: Reports chest pain, Reports shortness of breath, Denies leg edema, Denies lightheadedness Respiratory: Denies cough Gastrointestinal: Denies abdominal pain, Denies diarrhea, Denies nausea, Denies vomiting Genitourinary: Denies dysuria, Denies hematuria Neurological: Denies numbness, Denies weakness Past Medical History Past Medical History: Diabetes Mellitus, Sleep Apnea/CPAP/BIPAP, Thyroid Disorder Additional Past Medical History / Comment(s): coronary artery spasms History of Any Multi-Drug Resistant Organisms: None Reported Past Surgical History: Cholecystectomy, Hysterectomy, Joint Replacement Additional Past Surgical History / Comment(s): left knee replacement Past Anesthesia/Blood Transfusion Reactions: Family History of Problems w/ Anesthesia Additional Past Anesthesia/Blood Transfusion Reaction / Comment(s): sister has diff coming out Past Psychological History: No Psychological Hx Reported Smoking Status: Former smoker Past Alcohol Use History: None Reported Past Drug Use History: None Reported - Past Family History Sister(s) Family Medical History: Cancer, Deep Vein Thrombosis (DVT) Medications and Allergies Home Medications Medication Instructions Recorded Confirmed Type Isosorbide Mononitrate ER [Imdur] 30 mg PO DAILY 09/12/18 09/12/18 History Levothyroxine Sodium [Synthroid] 175 mcg PO DAILY 09/12/18 09/12/18 History Allergies Allergy/AdvReac Type Severity Reaction Status Date / Time No Known Allergies Allergy Verified 09/12/18 17:28 Physical Exam Vitals: Vital Signs Temp Pulse Pulse Resp BP BP Pulse Ox 09/13/18 04:00 98.2 F 67 16 122/71 95 09/13/18 03:59 62 16 09/13/18 00:00 16 09/12/18 23:22 97.9 F 62 16 142/74 93 L 09/12/18 20:20 97.9 F 70 18 149/72 96 09/12/18 20:02 68 18 115/83 98 09/12/18 20:00 18 09/12/18 19:45 75 16 126/81 94 L 09/12/18 19:00 62 18 151/76 98 09/12/18 18:30 63 18 122/73 93 L 09/12/18 17:32 61 18 152/80 99 09/12/18 16:37 98.1 F 75 18 135/72 97 Intake and Output 09/12/18 09/13/18 09/13/18 22:59 06:59 14:59 Intake Total 75.591 Balance 75.591 Intake: Intake, IV Titration 75.591 Amount Heparin Sod,Pork in 0.45% 75.591 NaCl 25,000 unit In 0.45 % NaCl 1 250ml.bag @ 8.22 UNITS/KG/HR 9.99 mls/hr IV .Q24H [facility] Rx#: [id number] Other: Voiding Method Toilet Toilet # Voids 1 2 Weight 121.563 kg - Constitutional General appearance: no acute distress, obese - EENT Eyes: EOMI - Neck Neck: no lymphadenopathy - Respiratory Respiratory: bilateral: CTA - Cardiovascular Rhythm: regular Heart sounds: normal: S1, S2 Abnormal Heart Sounds: no S3 Gallop - Gastrointestinal General gastrointestinal: soft, no tenderness - Integumentary Integumentary: no cellulitis - Neurologic Neurologic: CNII-XII intact Results CBC & Chem 7: 09/13/18 05:42 09/12/18 17:20 Labs: Abnormal Lab Results - Last 24 Hours (Table) 09/12/18 09/12/18 09/13/18 Range/Units 17:20 20:31 01:58 APTT 34.9 H (22.0-30.0) sec BUN 19 H (7-17) mg/dL Glucose 181 H (74-99) mg/dL POC Glucose (mg/dL) 132 H (75-99) mg/dL AST 43 H (14-36) U/L Total Protein 8.3 H (6.3-8.2) g/dL Triglycerides (<150) mg/dL Cholesterol (<200) mg/dL LDL Cholesterol, Calc (0-99) mg/dL 09/13/18 09/13/18 Range/Units 05:42 06:33 APTT (22.0-30.0) sec BUN (7-17) mg/dL Glucose (74-99) mg/dL POC Glucose (mg/dL) 161 H (75-99) mg/dL AST (14-36) U/L Total Protein (6.3-8.2) g/dL Triglycerides 312 H (<150) mg/dL Cholesterol 210 H (<200) mg/dL LDL Cholesterol, Calc 107 H (0-99) mg/dL Thrombosis Risk Factor Assmnt - Choose All That Apply Each Factor Represents 1 point: Age 41-60 years, Obesity (BMI >25) Thrombosis Risk Factor Assessment Total Risk Factor Score: 2 Thrombosis Risk Factor Assessment Level: Low Risk Assessment and Plan (1) Chest pain Current Visit: Yes Status: Acute Code(s): R07.9 - CHEST PAIN, UNSPECIFIED SNOMED Code(s): 09535173 (2) Lightheadedness Current Visit: No Status: Acute Code(s): R42 - DIZZINESS AND GIDDINESS SNOMED Code(s): 988322178 Plan: Rule out myocardial infarction. Cardiology is not consulted and question need to review or repeat stress type testing. Reconcile medications. See orders otherwise. Anticipate discharge, if workup is negative in the next 24-48 hours. Time with Patient: Greater than 30
[2018-09-13 07:26] VITALS: RESP 18
--- NOTE | 2018-09-13 08:34 | P.CRDCN ---
History of Present Illness Consult date: 09/13/18 Chief complaint: Chest pain History of present illness: This is a pleasant 58-year-old female patient with a past medical history significant for morbid obesity, obstructive sleep apnea, and history of coronary vasospasm currently on oral nitrate, presented to the hospital complaining of chest discomfort. For the last few days, she has been experiencing intermittent episodes of chest discomfort. She described the discomfort as a burning sensation in the mid of the chest was some radiation to the back. No specific symptoms of shortness of breath, sweating, dizziness or lightheadedness, or syncope. She stated that the discomfort is clearly not exertional and it can come in if she is sitting and resting. She stated that she underwent a heart catheterization about 2 years ago at [facility]. We don't have a copy of it would get a copy of the heart catheterization. The EKG showed sinus rhythm with nonspecific changes in the high lateral and lateral leads. The cardiac enzymes were checked and came in to be unremarkable. The chest x-ray did not show any acute abnormalities. Past Medical History Past Medical History: Diabetes Mellitus, Sleep Apnea/CPAP/BIPAP, Thyroid Disorder Additional Past Medical History / Comment(s): coronary artery spasms History of Any Multi-Drug Resistant Organisms: None Reported Past Surgical History: Cholecystectomy, Hysterectomy, Joint Replacement Additional Past Surgical History / Comment(s): left knee replacement Past Anesthesia/Blood Transfusion Reactions: Family History of Problems w/ Anesthesia Additional Past Anesthesia/Blood Transfusion Reaction / Comment(s): sister has diff coming out Past Psychological History: No Psychological Hx Reported Smoking Status: Former smoker Past Alcohol Use History: None Reported Past Drug Use History: None Reported - Past Family History Sister(s) Family Medical History: Cancer, Deep Vein Thrombosis (DVT) Medications and Allergies Home Medications Medication Instructions Recorded Confirmed Type Isosorbide Mononitrate ER [Imdur] 30 mg PO DAILY 09/12/18 09/12/18 History Levothyroxine Sodium [Synthroid] 175 mcg PO DAILY 09/12/18 09/12/18 History Allergies Allergy/AdvReac Type Severity Reaction Status Date / Time No Known Allergies Allergy Verified 09/12/18 17:28 Physical Exam Vitals: Vital Signs Temp Pulse Pulse Resp BP BP Pulse Ox 09/13/18 07:25 97.8 F 64 18 136/75 96 09/13/18 04:00 98.2 F 67 16 122/71 95 09/13/18 03:59 62 16 09/13/18 00:00 16 09/12/18 23:22 97.9 F 62 16 142/74 93 L 09/12/18 20:20 97.9 F 70 18 149/72 96 09/12/18 20:02 68 18 115/83 98 09/12/18 20:00 18 09/12/18 19:45 75 16 126/81 94 L 09/12/18 19:00 62 18 151/76 98 09/12/18 18:30 63 18 122/73 93 L 09/12/18 17:32 61 18 152/80 99 09/12/18 16:37 98.1 F 75 18 135/72 97 Intake and Output 09/12/18 09/13/18 09/13/18 22:59 06:59 14:59 Intake Total 75.591 Balance 75.591 Intake: Intake, IV Titration 75.591 Amount Heparin Sod,Pork in 0.45% 75.591 NaCl 25,000 unit In 0.45 % NaCl 1 250ml.bag @ 8.22 UNITS/KG/HR 9.99 mls/hr IV .Q24H [facility] Rx#: [id number] Other: Voiding Method Toilet Toilet # Voids 1 2 Weight 121.563 kg - Constitutional General appearance: no acute distress - Respiratory Respiratory: bilateral: CTA - Cardiovascular Rhythm: regular Heart sounds: normal: S1, S2 Results 09/13/18 05:42 09/12/18 17:20 Cardiac Enzymes 09/12/18 09/12/18 09/13/18 Range/Units 17:20 17:20 00:40 AST 43 H (14-36) U/L Troponin I <0.012 <0.012 (0.000-0.034) ng/mL 09/13/18 Range/Units 05:42 AST (14-36) U/L Troponin I <0.012 (0.000-0.034) ng/mL Coagulation 09/13/18 Range/Units 01:58 APTT 34.9 H (22.0-30.0) sec Lipids 09/13/18 Range/Units 05:42 Triglycerides 312 H (<150) mg/dL Cholesterol 210 H (<200) mg/dL HDL Cholesterol 41 (40-60) mg/dL CBC 09/12/18 09/13/18 Range/Units 17:20 05:42 WBC 3.8 (3.8-10.6) k/uL RBC 4.46 (3.80-5.40) m/uL Hgb 14.5 (11.4-16.0) gm/dL Hct 42.6 (34.0-46.0) % Plt Count 244 217 (150-450) k/uL Comprehensive Metabolic Panel 09/12/18 Range/Units 17:20 Sodium 140 (137-145) mmol/L Potassium 4.1 (3.5-5.1) mmol/L Chloride 104 (98-107) mmol/L Carbon Dioxide 25 (22-30) mmol/L BUN 19 H (7-17) mg/dL Creatinine 0.85 (0.52-1.04) mg/dL Glucose 181 H (74-99) mg/dL Calcium 9.8 (8.4-10.2) mg/dL AST 43 H (14-36) U/L ALT 52 (9-52) U/L Alkaline Phosphatase 101 (38-126) U/L Total Protein 8.3 H (6.3-8.2) g/dL Albumin 4.7 (3.5-5.0) g/dL Current Medications Generic Name Dose Route Start Last Admin Trade Name Freq PRN Reason Stop Dose Admin Aspirin 325 mg 09/13/18 09:00 Aspirin PO DAILY [facility] Atorvastatin Calcium 80 mg 09/13/18 09:00 Lipitor PO DAILY [facility] Heparin Sodium (Porcine) 0 unit 09/12/18 19:05 Heparin IV Q6HR PRN Low PTT Protocol Heparin Sodium/Sodium Chloride 250 mls @ 9.99 mls/hr 09/12/18 19:15 09/13/18 03:14 25,000 unit/ Sodium Chloride IV 11.11 units/kg/hr .Q24H [facility] 13.5 mls/hr Titration Protocol 8.22 UNITS/KG/HR Isosorbide Mononitrate 30 mg 09/13/18 09:00 Imdur PO DAILY [facility] Levothyroxine Sodium 100 mcg 09/13/18 09:00 Synthroid PO DAILY@0630 [facility] Levothyroxine Sodium 75 mcg 09/13/18 09:00 Synthroid PO DAILY@0630 [facility] Metoprolol Tartrate 25 mg 09/12/18 21:00 09/12/18 20:26 Lopressor PO 25 mg BID [facility] Administration Nitroglycerin 0.4 mg 09/12/18 19:05 09/12/18 20:02 Nitrostat SUBLINGUAL 0.4 mg Q5M PRN Administration Chest Pain Intake and Output 09/12/18 09/13/18 09/13/18 22:59 06:59 14:59 Intake Total 75.591 Balance 75.591 Intake: Intake, IV Titration 75.591 Amount Heparin Sod,Pork in 0.45% 75.591 NaCl 25,000 unit In 0.45 % NaCl 1 250ml.bag @ 8.22 UNITS/KG/HR 9.99 mls/hr IV .Q24H [facility] Rx#: [id number] Other: Voiding Method Toilet Toilet # Voids 1 2 Weight 121.563 kg 09/13/18 05:42 09/12/18 17:20 Assessment and Plan Assessment: Assessment #1 recurrent chest discomfort. Appears to be atypical. #2 history of coronary vasospasm #3 morbid obesity #4 obstructive sleep apnea Plan #1 acute coronary event was ruled out. #2 I will obtain a copy of the heart catheterization which was performed 2 years ago #3 meanwhile increase the dose of Imdur to 60 mg by mouth daily #4 obtain an echocardiogram was #5 follow-up with the patient. Thank you for allowing us participate in her care and we'll continue following up with the patient
[2018-09-13] MEDS ORDERED: ISOSORBIDE MONONITRATE ER 30 MG TAB.ER.24H PO SCH (09:00)
[2018-09-13] MEDS ORDERED: LEVOTHYROXINE 75 MCG TAB PO SCH (09:00)
[2018-09-13] MEDS ORDERED: ATORVASTATIN 80 MG TAB PO SCH (09:00)
[2018-09-13] MEDS ORDERED: ASPIRIN 325 MG TAB PO SCH (09:00)
[2018-09-13] MEDS ORDERED: LEVOTHYROXINE 100 MCG TAB PO SCH (09:00)
[2018-09-13] MEDS ORDERED: REGADENOSON 0.4 MG/5 ML SYRINGE IV ONE (09:20)
[2018-09-13] MEDS ORDERED: CAFFEINE CITRATE 60 MG/3 ML VIAL IV PRN (09:20)
--- NOTE | 2018-09-13 12:00 | ECHOF ---
Referral Reason:cp MEASUREMENTS -------- HEIGHT: 157.5 cm WEIGHT: 121.6 kg BP: RVIDd: 3.0 cm (< 3.3) IVSd: 1.3 cm (0.6 - 1.1) LVIDd: 4.6 cm (3.9 - 5.3) LVPWd: 1.3 cm (0.6 - 1.1) IVSs: 1.6 cm LVIDs: 3.0 cm LVPWs: 1.6 cm LAESV Index (A-L): 10.88 ml/m Ao Diam: 3.4 cm (2.0 - 3.7) AV Cusp: 1.8 cm (1.5 - 2.6) LA Diam: 2.7 cm (2.7 - 3.8) MV E Geronimo: 0.68 m/s MV DecT: 325 ms MV A Geronimo: 0.82 m/s MV E/A Ratio: 0.83 RAP: 5.00 mmHg RVSP: 15.14 mmHg MV EF SLOPE: 36.88 mm/s (70 - 150) MV EXCURSION: 1.30 cm (> 18.000) FINDINGS -------- Sinus rhythm. This was a technically difficult study with suboptimal views. The left ventricular size is normal. There is mild concentric left ventricular hypertrophy. Overa ll left ventricular systolic function is normal with, an EF between 55 - 60 %. The right ventricle is normal in size and function. Normal LA size by volume 22+/-6 ml/m2. The right atrium was not well visualized. 3 ml of Lumason was utilized for enhancement of images. There is mild aortic valve sclerosis. There is no evidence of aortic regurgitation. There is no e vidence of aortic stenosis. The mitral valve leaflets are mildly thickened. There is trace to mild mitral regurgitation. Trace tricuspid regurgitation present. Right ventricular systolic pressure is normal at < 35 mmHg. There is no evidence of pulmonary hypertension. The pulmonic valve was not well visualized. The aortic root size is normal. IVC Not well visulized. There is no pericardial effusion. CONCLUSIONS -------- 1. Sinus rhythm. 2. This was a technically difficult study with suboptimal views. 3. The left ventricular size is normal. 4. There is mild concentric left ventricular hypertrophy. 5. Overall left ventricular systolic function is normal with, an EF between 55 - 60 %. 6. Normal LA size by volume 22+/-6 ml/m2. 7. The right atrium was not well visualized. 8. 3 ml of Lumason was utilized for enhancement of images. 9. There is mild aortic valve sclerosis. 10. The mitral valve leaflets are mildly thickened. 11. There is trace to mild mitral regurgitation. 12. Trace tricuspid regurgitation present. 13. Right ventricular systolic pressure is normal at < 35 mmHg. 14. There is no evidence of pulmonary hypertension. 15. The pulmonic valve was not well visualized. 16. The aortic root size is normal. 17. IVC Not well visulized. 18. There is no pericardial effusion. THERAPY SITE COORDINATOR: Tom Hernandez RDCS
[2018-09-13 12:41] LABS: Glucose,Whole Blood 125 mg/dL (75-99)
[2018-09-13 12:42] VITALS: BP 168/69; PULSE 67; TEMP 98.1
--- NOTE | 2018-09-13 12:42 | EST ---
EXERCISE STRESS AGE: 58 SEX: F HT: 62" WT: 268 PROTOCOL: Lexiscan Cardiolite Stress Test HEART RATE REST: 75 BLOOD PRESSURE REST: 107/83 MAXIMUM HEART RATE ACHIEVED: 104 MAXIMUM BLOOD PRESSURE: 142/77 INDICATIONS: Chest pain. CLINICAL INFORMATION: STRESS DATA: Pretesting physical examination showed heart rate 75,. pressure is 107/83. Baseline EKG showed sinus mechanism; 0.4 mg of Lexiscan given over 15 seconds per protocol. Max heart rate was 104 beats per minute. Maximum pressure was 142/77 mmHg. Clinically, the patient did not have any symptoms and the EKG did not show any significant ST or T-wave abnormalities concerning for ischemia. CONCLUSION: 1. Nondiagnostic electrocardiogram stress testing in response to Lexiscan. 2. Please follow up on the Cardiolite portion on separate report from Radiology Department. MMODL / IJN: [id number] /
[2018-09-13] MEDS: METOPROLOL TARTRATE 25 MG TAB PO SCH (12:56)
--- NOTE | 2018-09-13 13:18 | NM ---
EXAMINATION TYPE: NM stress lexiscan cardiolite DATE OF EXAM: 09/13/2018 COMPARISON: NONE HISTORY: Chest pain. History of diabetes, prior tobacco use quit 35 years ago, family history of ghulam nary artery disease, and personal history of prior heart catheterization. TECHNIQUE: After the intravenous administration of 10.2 mCi Tc 99m Sestamibi - Cardiolite resting SP ECT images acquired 50 minutes post injection. The patient received 0.4mg Lexiscan, 26.5 mCi Tc 99m Sestamibi - Stress images obtained [address] injection FINDINGS: Review of stress and rest SPECT images demonstrates area of diminished radiotracer uptake involving i nferior lateral wall on stress and rest images suspicious for old infarct. No reversible ischemia is evident. Gated analysis shows overall estimated left ventricular ejection fraction of 58 %. IMPRESSION: Possible old infarct. No reversible ischemia identified.
== END 2018-09-13 15:16 | disposition home or self-care (01) ==
LOC: EC 16:19 → 1SOBS 19:08
PROVIDERS: ADMIT Family Medicine; ATTEND Family Medicine
DX: R07.89 Other chest pain (principal); G47.33 Obstructive sleep apnea (adult) (pediatric); E11.9 Type 2 diabetes mellitus without complications; I20.1 Angina pectoris with documented spasm; R00.2 Palpitations; R61 Generalized hyperhidrosis; E03.9 Hypothyroidism, unspecified; Z99.89 Dependence on other enabling machines and devices; E66.01 Morbid (severe) obesity due to excess calories; Z68.42 Body mass index [BMI] 45.0-49.9, adult; R42 Dizziness and giddiness; Z79.890 Hormone replacement therapy; Z79.899 Other long term (current) drug therapy; Z90.49 Acquired absence of other specified parts of digestive tract; Z90.710 Acquired absence of both cervix and uterus; Z87.891 Personal history of nicotine dependence; Z96.652 Presence of left artificial knee joint; Z83.2 Family history of diseases of the blood and blood-forming organs and certain disorders involving the immune mechanism; Z80.9 Family history of malignant neoplasm, unspecified; Z84.89 Family history of other specified conditions
CPT/HCPCS: 96366 ×2; 96376; 96365; 99291; 36415; 93017; 83880; 80061; 80053; 83690; 83735; 84484 ×2; 85025; 85049; 85610; 85730 ×2; 71046; 78452; G0378 ×2; C8929; A9500; J1644 ×2; J2785; Q9950; 93306

== ENCOUNTER 2018-09-26 23:15 | Emergency (ER) | payer MEDICARE ==
--- NOTE | 2018-09-27 00:33 | XR ---
EXAM: XR Right Knee, 3 views CLINICAL HISTORY: ITS.REASON XR Reason: Pain posterior knee TECHNIQUE: Three views of the right knee. COMPARISON: No relevant prior studies available. 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 No acute fracture. No dislocation. Soft tissues: Unremarkable. 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
--- NOTE | 2018-09-27 01:20 | US ---
EXAM: US Duplex Right Lower Extremity Veins CLINICAL HISTORY: ITS.REASON US Reason: Pain TECHNIQUE: Real-time duplex ultrasound scan of the right lower extremity veins integrating B-mode two-dimensional vascular structure, Doppler spectral analysis, color flow Doppler imaging and compression. COMPARISON: No relevant prior studies available. FINDINGS: Deep veins: Unremarkable. No DVT in the visualized common femoral, femoral, proximal deep femoral or popliteal veins. The veins demonstrate normal color flow, are normally compressible, with normal phasic flow and/or augmentation response. Superficial veins: Unremarkable. No thrombus in the visualized great saphenous vein. Soft tissues: 5 cm right popliteal cyst. IMPRESSION: 5 cm right popliteal cyst.
--- NOTE | 2018-09-27 01:25 | ED ---
Extremity Problem HPI - General Source: patient Mode of arrival: ambulatory Limitations: no limitations <Ava Causey - Last Filed: 09/27/18 01:28> <Katia Michaud - Last Filed: 09/27/18 04:35> - General Chief complaint: Extremity Problem,Nontraumatic Stated complaint: leg pain - History of Present Illness Initial comments: 58-year-old female with past medical history of [id number] type 2 diabetes, sleep apnea, coronary artery vasospasm and thyroid disorder presenting today for chief complaint of right knee pain. Patient states that about a month ago she did follow up the stairs, she states she got no significant pain at this time. Patient states that for the past week she has had noticed increasing pain behind the right knee. She states she is okay walking and ambulating however hurts to bend her right knee completely. Patient denies any fever or chills night sweats, she denies any general malaise, numbness, cooler, pallor, parathesias, erythema or warmth of the right knee. Patient denies any recent surgeries or infections or history of deep venous thrombosis. Remaining review of systems negative, patient denies any recent fever, chills, shortness of breath, chest pain, back pain, abdominal pain, nausea or vomiting, numbness or tingling, dysuria or hematuria, constipation or diarrhea, headaches or visual changes, or any other complaints. Upon arrival patient is able to her, she appears well no signs of toxicity or acute distress. Patient pleasant (Ava Causey) - Related Data Home Medications Medication Instructions Recorded Confirmed Isosorbide Mononitrate ER [Imdur] 30 mg PO DAILY 09/12/18 09/12/18 Levothyroxine Sodium [Synthroid] 175 mcg PO DAILY 09/12/18 09/12/18 Allergies Allergy/AdvReac Type Severity Reaction Status Date / Time No Known Allergies Allergy Verified 09/26/18 23:22 Review of Systems ROS Other: All systems not noted in ROS Statement are negative. <Ava Causey - Last Filed: 09/27/18 01:28> ROS Other: All systems not noted in ROS Statement are negative. <Katia Michaud - Last Filed: 09/27/18 04:35> ROS Statement: Those systems with pertinent positive or pertinent negative responses have been documented in the HPI. Past Medical History Past Medical History: Diabetes Mellitus, Sleep Apnea/CPAP/BIPAP, Thyroid Disorder Additional Past Medical History / Comment(s): coronary artery spasms History of Any Multi-Drug Resistant Organisms: None Reported Past Surgical History: Cholecystectomy, Hysterectomy, Joint Replacement Additional Past Surgical History / Comment(s): left knee replacement Past Anesthesia/Blood Transfusion Reactions: Family History of Problems w/ Anesthesia Additional Past Anesthesia/Blood Transfusion Reaction / Comment(s): sister has diff coming out Past Psychological History: No Psychological Hx Reported Smoking Status: Former smoker Past Alcohol Use History: None Reported Past Drug Use History: None Reported - Past Family History Sister(s) Family Medical History: Cancer, Deep Vein Thrombosis (DVT) <AlexeipurviAva L - Last Filed: 09/27/18 01:28> General Exam Limitations: no limitations <AlexeipurviAva - Last Filed: 09/27/18 01:28> - General Exam Comments Initial Comments: General: The patient is awake and alert, in no distress, and does not appear acutely ill. Eye: Pupils are equal, round and reactive to light, extra-ocular movements are intact. No nystagmus. There is normal conjunctiva bilaterally. No signs of icterus. Ears, nose, mouth and throat: There are moist mucous membranes and no oral lesions. Neck: The neck is supple, there is no tenderness or JVD. Cardiovascular: There is a regular rate and rhythm. No murmur, rub or gallop is appreciated. Respiratory: Lungs are clear to auscultation, respirations are non-labored, breath sounds are equal. No wheezes, stridor, rales, or rhonchi. Musculoskeletal: Normal inspection of the lower extremities equal comparison bilaterally. Tender spot patient of the posterior fossa of right knee. Normal ROM of the lower extremities including the knees bilaterally, with tenderness of posterior right knee. Strength 5/5 of the LE equal b/l. Sensation intact both proximal and distal to sign of cc. DP pulses equal bilaterally 2+. Neurological: A&O x 3. CN II-XII intact, There are no obvious motor or sensory deficits. Coordination appears grossly intact. Speech is normal. Skin: Skin is warm and dry and no rashes or lesions are noted. Small fluctuant area of the posterior popliteal fossa. No erythema or warmth to palpation. No surrounding edema. No lower extremity edema Psychiatric: Cooperative, appropriate mood & affect, normal judgment. (Ava Causey) Course Vital Signs 09/26/18 09/27/18 23:19 01:39 Temperature 98.1 F 98.0 F Pulse Rate 74 76 Respiratory 20 19 Rate Blood Pressure 115/59 120/84 O2 Sat by Pulse 97 98 Oximetry Medical Decision Making <Ava Causey - Last Filed: 09/27/18 01:28> <Katia Michaud - Last Filed: 09/27/18 04:35> - Medical Decision Making 58 year female presenting for H rheumatic right knee pain, patient has pain in the popliteal area. There is palpable mass. Ultrasound negative for deep venous thrombosis however does reveal popliteal cyst. X-ray negative for acute osseous injury does reveal chronic arthritis. No evidence of acute osseous injury. Patient is able to fully range,no neurovascular deficits. Patient appears well there is no evidence concerning for infection at this time. Patient be discharged with orthopedic surgery follow-up for further evaluation and treatment. Patient is agreeable plan discharge denies questions at this time. Patient discharged appearing well denying questions at this time. I discussed the case with the provider Dr. Michaud prior to patient's discharge. (Ava Causey) I was available for consultation in the emergency department. The history and physical exam were done by the midlevel provider. I was consulted for this patient's care. I reviewed the case with the midlevel provider and based on their presentation of the patient, I agree with the assessment, medical decision making and plan of care as documented. (Katia Michaud) Disposition Is patient prescribed a controlled substance at d/c from ED?: No Time of Disposition: 01:24 <Ava Causey - Last Filed: 09/27/18 01:28> <Katia Michaud - Last Filed: 09/27/18 04:35> Clinical Impression: Popliteal cyst Disposition: HOME SELF-CARE Condition: Good Instructions (If sedation given, give patient instructions): Bakers Cyst (ED) Additional Instructions: Please use medication as discussed. Please follow-up with orthopedic surgery within the next 2-3 days. Please return to emergency room if the symptoms increase or worsen or for any other concerns. Referrals: Gopi Abraham MD [Primary Care Provider] - 1-2 days Judah Knight MD [Medical Doctor] - 1-2 days
[2018-09-27 01:46] VITALS: BP 120/84; PULSE 76; RESP 19; TEMP 98
== END 2018-09-27 01:40 | disposition home or self-care (01) ==
LOC: EC 23:15
DX: M71.21 Synovial cyst of popliteal space [Baker], right knee (principal); G47.30 Sleep apnea, unspecified; E07.9 Disorder of thyroid, unspecified; Z87.891 Personal history of nicotine dependence; Z90.49 Acquired absence of other specified parts of digestive tract; Z90.710 Acquired absence of both cervix and uterus; Z96.652 Presence of left artificial knee joint; Z99.89 Dependence on other enabling machines and devices; Z79.890 Hormone replacement therapy; Z79.899 Other long term (current) drug therapy
CPT/HCPCS: 99284

== ENCOUNTER 2019-09-08 20:32 | Observation (INO) | payer MEDICARE ==
[2019-09-08] MEDS ORDERED: SODIUM CHLORIDE 0.9% 500 ML 500 ML IV STA (21:10)
[2019-09-08] MEDS ORDERED: ASPIRIN 81 MG PO STA (21:10)
--- NOTE | 2019-09-08 21:28 | ED ---
General Adult HPI - General Chief complaint: Chest Pain Stated complaint: Chest Pain Time Seen by Provider: 09/08/19 20:55 Source: patient, family, RN notes reviewed, old records reviewed Mode of arrival: ambulatory Limitations: no limitations - History of Present Illness Initial comments: 59-year-old female patient with past history of type 2 diabetes, reported coronary artery spasms, states that she did have a clean heart catheterization approximate 4 years. Presents to ED for chief complaint of chest pain. Patient reports that yesterday she got to exert herself and experienced some substernal chest discomfort. This resolved after she stopped exerting herself. Denies any pain since. Patient is poor that she has had some generalized muscle spasm - like discomfort in her jaw and neck today. Denies any shortness of breath. Denies abdominal pain. Denies any other complaints. Systemic: Pt denies fatigue, fever/chills, rash. Pt denies weakness, night sweats, weight loss. Neuro: Pt denies headache, visual disturbances, syncope or pre-syncope. HEENT: Pt denies ocular discharge or irritation, otalgia, rhinorrhea, pharyngitis or notable lymphadenopathy. Cardiopulmonary: Pt denies SOB, heart palpitations, dyspnea on exertion. Abdominal/GI: Pt denies abdominal pain, n/v/d. : Pt denies dysuria, burning w/ urination, frequency/urgency. Denies new onset urinary or bowel incontinence. MSK: Pt denies myalgia, loss of strength or function in extremities. Neuro: Pt denies new onset weakness, paresthesias. - Related Data Home Medications Medication Instructions Recorded Confirmed Isosorbide Mononitrate ER [Imdur] 30 mg PO DAILY 09/12/18 09/12/18 Levothyroxine Sodium [Synthroid] 175 mcg PO DAILY 09/12/18 09/12/18 Allergies Allergy/AdvReac Type Severity Reaction Status Date / Time No Known Allergies Allergy Verified 09/08/19 20:44 Review of Systems ROS Statement: Those systems with pertinent positive or pertinent negative responses have been documented in the HPI. ROS Other: All systems not noted in ROS Statement are negative. Past Medical History Past Medical History: Coronary Artery Disease (CAD), Diabetes Mellitus, Sleep Apnea/CPAP/BIPAP, Thyroid Disorder Additional Past Medical History / Comment(s): coronary artery spasms History of Any Multi-Drug Resistant Organisms: None Reported Past Surgical History: Cholecystectomy, Hysterectomy, Joint Replacement Additional Past Surgical History / Comment(s): left knee replacement Past Anesthesia/Blood Transfusion Reactions: Family History of Problems w/ Anesthesia Additional Past Anesthesia/Blood Transfusion Reaction / Comment(s): sister has diff coming out Past Psychological History: No Psychological Hx Reported Smoking Status: Former smoker Past Alcohol Use History: None Reported Past Drug Use History: None Reported - Past Family History Sister(s) Family Medical History: Cancer, Deep Vein Thrombosis (DVT) General Exam - General Exam Comments Initial Comments: Constitutional: NAD, AOX3, Pt has pleasant affect. HEENT: NC/AT, trachea midline, neck supple, no lymphadenopathy. Posterior phar ynx non erythematous, without exudates. External ears appear normal, without discharge. Mucous membranes moist. Eyes PERRLA, EOM intact. There is no scleral icterus. No pallor noted. Cardiopulmonary: RRR, no murmurs, rubs or gallops, no JVD noted. Lungs CTAB in anterior and posterior morrison. No peripheral edema. Abdominal exam: Abdomen soft and non-distended. Abdomen non-tender to palpation in all 4 quadrants. Bowel sounds active in LLQ. No hepatosplenomegaly. No ecchymosis Neuro: CN II-XII intact. No nuchal rigidity. No raccon eyes, no gilliland sign, no hemotympanum. No cervical spinal tenderness. MSK: No posterior calf tenderness bilaterally, homans sign negative bilaterally. Posterior tibialis and radial pulse +2 bilaterally. Sensation intact in upper and lower extremities. Full active ROM in upper and lower extremities, 5/5 stregnth. Limitations: no limitations Course Vital Signs 09/08/19 09/08/19 09/08/19 20:36 20:44 21:00 Temperature 98.2 F Pulse Rate 70 72 81 Respiratory 20 18 Rate Blood Pressure 133/78 136/78 120/71 O2 Sat by Pulse 99 98 96 Oximetry 09/08/19 09/08/19 09/08/19 21:20 21:40 22:10 Temperature Pulse Rate 79 72 69 Respiratory Rate Blood Pressure 136/78 123/74 137/96 O2 Sat by Pulse 95 96 97 Oximetry 09/08/19 22:40 Temperature Pulse Rate 69 Respiratory Rate Blood Pressure 149/83 O2 Sat by Pulse 97 Oximetry Medical Decision Making - Medical Decision Making 59-year-old female patient with past history of type 2 diabetes, reported coronary artery spasms, states that she did have a clean heart catheterization approximate 4 years. Presents to ED for chief complaint of chest pain. Patient reports that yesterday she got to exert herself and experienced some substernal chest discomfort. This resolved after she stopped exerting herself. Denies any pain since. Patient is poor that she has had some generalized muscle spasm -like discomfort in her jaw and neck today. Denies any shortness of breath. Denies abdominal pain. Denies any other complaints. Patient vital signs stable, afebrile. Physical exam displayed no acute pathology. Laboratory investigations revealed hyperglycemia. Troponin negative. EKG nonischemic. Patient was admitted for serial troponins, cardiology evaluation. Case discussed with Dr. Jarrell. - Lab Data Result diagrams: 09/08/19 22:07 09/08/19 22:07 Lab Results 09/08/19 09/08/19 09/08/19 Range/Units 22:07 22:07 22:07 WBC 4.3 (3.8-10.6) k/uL RBC 4.60 (3.80-5.40) m/uL Hgb 15.0 (11.4-16.0) gm/dL Hct 44.3 (34.0-46.0) % MCV 96.2 (80.0-100.0) fL MCH 32.6 (25.0-35.0) pg MCHC 33.9 (31.0-37.0) g/dL RDW 12.6 (11.5-15.5) % Plt Count 193 (150-450) k/uL Neutrophils % 61 % Lymphocytes % 25 % Monocytes % 6 % Eosinophils % 5 % Basophils % 1 % Neutrophils # 2.7 (1.3-7.7) k/uL Lymphocytes # 1.1 (1.0-4.8) k/uL Monocytes # 0.3 (0-1.0) k/uL Eosinophils # 0.2 (0-0.7) k/uL Basophils # 0.0 (0-0.2) k/uL PT (9.0-12.0) sec INR (<1.2) APTT (22.0-30.0) sec Sodium 137 (137-145) mmol/L Potassium 4.3 (3.5-5.1) mmol/L Chloride 101 (98-107) mmol/L Carbon Dioxide 24 (22-30) mmol/L Anion Gap 12 mmol/L BUN 14 (7-17) mg/dL Creatinine 0.73 (0.52-1.04) mg/dL Est GFR (CKD-EPI)AfAm >90 (>60 ml/min/1.73 sqM) Est GFR (CKD-EPI)NonAf 89 (>60 ml/min/1.73 sqM) Glucose 344 H (74-99) mg/dL POC Glucose (mg/dL) (75-99) mg/dL POC Glu Optical Glass Wet Inspector ID Calcium 9.4 (8.4-10.2) mg/dL Magnesium 1.9 (1.6-2.3) mg/dL Total Bilirubin 0.5 (0.2-1.3) mg/dL AST 77 H (14-36) U/L ALT 58 H (4-34) U/L Alkaline Phosphatase 136 H (38-126) U/L Troponin I (0.000-0.034) ng/mL NT-Pro-B Natriuret Pep pg/mL Total Protein 8.4 H (6.3-8.2) g/dL Albumin 4.7 (3.5-5.0) g/dL Influenza Type A RNA Not Detected (Not Detectd) Influenza Type B (PCR) Not Detected (Not Detectd) 09/08/19 09/08/19 09/08/19 Range/Units 22:07 22:07 22:07 WBC (3.8-10.6) k/uL RBC (3.80-5.40) m/uL Hgb (11.4-16.0) gm/dL Hct (34.0-46.0) % MCV (80.0-100.0) fL MCH (25.0-35.0) pg MCHC (31.0-37.0) g/dL RDW (11.5-15.5) % Plt Count (150-450) k/uL Neutrophils % % Lymphocytes % % Monocytes % % Eosinophils % % Basophils % % Neutrophils # (1.3-7.7) k/uL Lymphocytes # (1.0-4.8) k/uL Monocytes # (0-1.0) k/uL Eosinophils # (0-0.7) k/uL Basophils # (0-0.2) k/uL PT 10.1 (9.0-12.0) sec INR 1.0 (<1.2) APTT 25.6 (22.0-30.0) sec Sodium (137-145) mmol/L Potassium (3.5-5.1) mmol/L Chloride (98-107) mmol/L Carbon Dioxide (22-30) mmol/L Anion Gap mmol/L BUN (7-17) mg/dL Creatinine (0.52-1.04) mg/dL Est GFR (CKD-EPI)AfAm (>60 ml/min/1.73 sqM) Est GFR (CKD-EPI)NonAf (>60 ml/min/1.73 sqM) Glucose (74-99) mg/dL POC Glucose (mg/dL) (75-99) mg/dL POC Glu Optical Glass Wet Inspector ID Calcium (8.4-10.2) mg/dL Magnesium (1.6-2.3) mg/dL Total Bilirubin (0.2-1.3) mg/dL AST (14-36) U/L ALT (4-34) U/L Alkaline Phosphatase (38-126) U/L Troponin I <0.012 (0.000-0.034) ng/mL NT-Pro-B Natriuret Pep 25 pg/mL Total Protein (6.3-8.2) g/dL Albumin (3.5-5.0) g/dL Influenza Type A RNA (Not Detectd) Influenza Type B (PCR) (Not Detectd) 09/08/19 Range/Units 23:04 WBC (3.8-10.6) k/uL RBC (3.80-5.40) m/uL Hgb (11.4-16.0) gm/dL Hct (34.0-46.0) % MCV (80.0-100.0) fL MCH (25.0-35.0) pg MCHC (31.0-37.0) g/dL RDW (11.5-15.5) % Plt Count (150-450) k/uL Neutrophils % % Lymphocytes % % Monocytes % % Eosinophils % % Basophils % % Neutrophils # (1.3-7.7) k/uL Lymphocytes # (1.0-4.8) k/uL Monocytes # (0-1.0) k/uL Eosinophils # (0-0.7) k/uL Basophils # (0-0.2) k/uL PT (9.0-12.0) sec INR (<1.2) APTT (22.0-30.0) sec Sodium (137-145) mmol/L Potassium (3.5-5.1) mmol/L Chloride (98-107) mmol/L Carbon Dioxide (22-30) mmol/L Anion Gap mmol/L BUN (7-17) mg/dL Creatinine (0.52-1.04) mg/dL Est GFR (CKD-EPI)AfAm (>60 ml/min/1.73 sqM) Est GFR (CKD-EPI)NonAf (>60 ml/min/1.73 sqM) Glucose (74-99) mg/dL POC Glucose (mg/dL) 311 H (75-99) mg/dL POC Glu Optical Glass Wet Inspector ID Kristie Walker Calcium (8.4-10.2) mg/dL Magnesium (1.6-2.3) mg/dL Total Bilirubin (0.2-1.3) mg/dL AST (14-36) U/L ALT (4-34) U/L Alkaline Phosphatase (38-126) U/L Troponin I (0.000-0.034) ng/mL NT-Pro-B Natriuret Pep pg/mL Total Protein (6.3-8.2) g/dL Albumin (3.5-5.0) g/dL Influenza Type A RNA (Not Detectd) Influenza Type B (PCR) (Not Detectd) - EKG Data -: EKG Interpreted by Me (and Dr. Jarrell) EKG Comments: Ventricular rate 79,. 162, QRS in V2, QT/QTC 362/4:15. Normal sinus rhythm, no concern for acute ischemia.. Disposition Clinical Impression: Chest pain Disposition: ADMITTED IP TO THIS HOSP Condition: Serious Is patient prescribed a controlled substance at d/c from ED?: No Referrals: Gopi Abraham MD [Primary Care Provider] - 1-2 days
[2019-09-08 22:25] LABS: Basophils % (A) 1 %; Eosinophils # (A) 0.2 k/uL (0-0.7); Eosinophils % (A) 5 %; HCT 44.3 % (34.0-46.0); Lymphocytes # (A) 1.1 k/uL (1.0-4.8); Lymphocytes % (A) 25 %; MCH 32.6 pg (25.0-35.0); MCHC 33.9 g/dL (31.0-37.0); MCV 96.2 fL (80.0-100.0); Mean Platelet Volume 7.4; Monocytes # (A) 0.3 k/uL (0-1.0); Monocytes % (A) 6 %; Neutrophils # (A) 2.7 k/uL (1.3-7.7); Neutrophils % (A) 61 %; Platelet Count 193 k/uL (150-450); RDW 12.6 % (11.5-15.5); WBC 4.3 k/uL (3.8-10.6)
--- NOTE | 2019-09-08 22:28 | XR ---
EXAMINATION TYPE: XR chest 2V DATE OF EXAM: 09/08/2019 COMPARISON: 09/12/2018 HISTORY: Chest pain TECHNIQUE: FINDINGS: Heart and mediastinum are normal. Lungs are clear. Diaphragm is normal. Bony thorax is inta ct. There is minor spurring in the thoracic spine. IMPRESSION: No active cardiopulmonary disease. Normal heart. No change.
[2019-09-08 22:33] LABS: Partial Thromboplastin Time 25.6 sec (22.0-30.0); Prothrombin Time 10.1 sec (9.0-12.0)
[2019-09-08 22:35] LABS: ALT 58 U/L (4-34); AST 77 U/L (14-36); African American GFR (CKD) >90 (>60 ml/min/1.73 sqM); Albumin 4.7 g/dL (3.5-5.0); Alkaline Phosphatase 136 U/L (38-126); Anion Gap 12 mmol/L; Blood Urea Nitrogen 14 mg/dL (7-17); Calcium 9.4 mg/dL (8.4-10.2); Carbon Dioxide 24 mmol/L (22-30); Chloride 101 mmol/L (98-107); Glucose 344 mg/dL (74-99); Magnesium 1.9 mg/dL (1.6-2.3); Non-African American GFR(CKD) 89 (>60 ml/min/1.73 sqM); Potassium 4.3 mmol/L (3.5-5.1); Sodium 137 mmol/L (137-145); Total Bilirubin 0.5 mg/dL (0.2-1.3); Total Protein 8.4 g/dL (6.3-8.2)
[2019-09-08] MEDS ORDERED: INSULIN ASPART (NovoLOG) 100 UNIT/ML VIAL SQ ONE (22:44)
[2019-09-08 23:06] LABS: Glucose,Whole Blood 311 mg/dL (75-99)
[2019-09-08] MEDS ORDERED: NITROGLYCERIN SL TABS 0.4 MG TAB SUBLINGUAL PRN (23:15)
[2019-09-09 04:01] LABS: Cholesterol 204 mg/dL (<200); HDL Cholesterol 45 mg/dL (40-60); LDL Cholesterol,Calculated 113 mg/dL (0-99); Triglycerides 230 mg/dL (<150)
[2019-09-09 07:06] LABS: Glucose,Whole Blood 316 mg/dL (75-99)
--- NOTE | 2019-09-09 09:45 | P.CRDCN ---
History of Present Illness Consult date: 09/09/19 Consult reason: chest pain Chief complaint: Chest pain History of present illness: This is a very pleasant 59-year-old female patient with a past medical history significant for diabetes type 2 as well as known coronary vasospasm, presented to the emergency room complaining of chest discomfort. The patient was diagnos ed was coronary vasospasm based on normal heart catheterization was performed about 2 years ago at [facility] and at that point she was started on oral nitrates. She stated that she stopped taking the medication about a year ago because she did not like the side effect of the medication. She presented to the hospital complaining of chest discomfort, in the mid of the chest, as a dull kind of discomfort, without any radiation to the arm or neck or shoulder, and without any associated symptoms. The workup came in to be unremarkable. The EKG showed sinus rhythm without any significant ST or T-wave abnormalities. The cardiac enzymes were checked and came in to be unremarkable as well. The patient remains hemodynamically stable. I am going to add Cardizem CD to the current medical regimen for possible coronary vasospasm, and review with her heart catheterization from [facility]. I will review with the heart catheterization was performed within the last few years and was unremarkable the patient possibly can be discharged home. Past Medical History Past Medical History: Coronary Artery Disease (CAD), Diabetes Mellitus, Sleep Apnea/CPAP/BIPAP, Thyroid Disorder Additional Past Medical History / Comment(s): coronary artery spasms History of Any Multi-Drug Resistant Organisms: None Reported Past Surgical History: Cholecystectomy, Hysterectomy, Joint Replacement Additional Past Surgical History / Comment(s): left knee replacement Past Anesthesia/Blood Transfusion Reactions: Family History of Problems w/ Anesthesia Additional Past Anesthesia/Blood Transfusion Reaction / Comment(s): sister has diff coming out Smoking Status: Former smoker - Past Family History Sister(s) Family Medical History: Cancer, Deep Vein Thrombosis (DVT) Medications and Allergies Home Medications Medication Instructions Recorded Confirmed Type Levothyroxine Sodium [Synthroid] 175 mcg PO DAILY 09/12/18 09/09/19 History Allergies Allergy/AdvReac Type Severity Reaction Status Date / Time No Known Allergies Allergy Verified 09/09/19 00:18 Physical Exam Vitals: Vital Signs Temp Pulse Pulse Resp BP BP Pulse Ox 09/09/19 08:00 98.3 F 79 18 123/81 95 09/09/19 05:00 62 18 125/68 96 09/09/19 00:00 98.0 F 66 18 130/80 97 09/08/19 23:47 98.1 F 09/08/19 23:10 68 135/65 95 09/08/19 22:50 67 149/83 96 09/08/19 22:40 69 149/83 97 09/08/19 22:10 69 137/96 97 09/08/19 21:40 72 123/74 96 09/08/19 21:20 79 136/78 95 09/08/19 21:00 81 120/71 96 09/08/19 20:44 72 18 136/78 98 09/08/19 20:36 98.2 F 70 20 133/78 99 Intake and Output 09/08/19 09/09/19 09/09/19 22:59 06:59 14:59 Other: Voiding Method Toilet # Voids 1 Weight 120.202 kg 118.7 kg - Constitutional General appearance: no acute distress - Respiratory Respiratory: bilateral: CTA - Cardiovascular Rhythm: regular Heart sounds: normal: S1, S2 Results 09/08/19 22:07 09/08/19 22:07 Cardiac Enzymes 09/08/19 09/08/19 09/09/19 Range/Units 22:07 22:07 03:38 AST 77 H (14-36) U/L Troponin I <0.012 <0.012 (0.000-0.034) ng/mL Coagulation 09/08/19 Range/Units 22:07 PT 10.1 (9.0-12.0) sec APTT 25.6 (22.0-30.0) sec Lipids 09/09/19 Range/Units 03:38 Triglycerides 230 H (<150) mg/dL Cholesterol 204 H (<200) mg/dL HDL Cholesterol 45 (40-60) mg/dL CBC 09/08/19 Range/Units 22:07 WBC 4.3 (3.8-10.6) k/uL RBC 4.60 (3.80-5.40) m/uL Hgb 15.0 (11.4-16.0) gm/dL Hct 44.3 (34.0-46.0) % Plt Count 193 (150-450) k/uL Comprehensive Metabolic Panel 09/08/19 Range/Units 22:07 Sodium 137 (137-145) mmol/L Potassium 4.3 (3.5-5.1) mmol/L Chloride 101 (98-107) mmol/L Carbon Dioxide 24 (22-30) mmol/L BUN 14 (7-17) mg/dL Creatinine 0.73 (0.52-1.04) mg/dL Glucose 344 H (74-99) mg/dL Calcium 9.4 (8.4-10.2) mg/dL AST 77 H (14-36) U/L ALT 58 H (4-34) U/L Alkaline Phosphatase 136 H (38-126) U/L Total Protein 8.4 H (6.3-8.2) g/dL Albumin 4.7 (3.5-5.0) g/dL Current Medications Generic Name Dose Route Start Last Admin Trade Name Freq PRN Reason Stop Dose Admin Aspirin 325 mg 09/09/19 09:00 Aspirin PO DAILY [facility] Insulin Aspart 0 unit 09/09/19 07:30 Novolog SQ ACHS [facility] Protocol Nitroglycerin 0.4 mg 09/08/19 23:15 Nitrostat SUBLINGUAL Q5M PRN Chest Pain Intake and Output 09/08/19 09/09/19 09/09/19 22:59 06:59 14:59 Other: Voiding Method Toilet # Voids 1 Weight 120.202 kg 118.7 kg 09/08/19 22:07 09/08/19 22:07 Assessment and Plan Assessment: Assessment #1 atypical chest discomfort #2 history of coronary vasospasm Plan #1 acute coronary syndrome was ruled out #2 obtain a copy of the heart catheterization #3 the patient can be discharged home within the next 12-24 hours
[2019-09-09] MEDS: ASPIRIN 325 MG TAB PO SCH (10:02)
[2019-09-09] MEDS: INSULIN ASPART (NovoLOG) 100 UNIT/ML VIAL SQ SCH ×4 (10:02→20:33)
[2019-09-09 11:32] LABS: Glucose,Whole Blood 234 mg/dL (75-99)
--- NOTE | 2019-09-09 14:41 | P.HPIM ---
History of Present Illness 59-year-old female with known history of coronary vasospasm and a cardiac catheterization about 2 years ago came in with complaints of chest pressure-like sensation radiating to the left arm and neck chest discomfort is limited disco mfort mid chest area without any diaphoresis lightheadedness shortness of breath patient chest pain is nonpleuritic not associated with food. Patient is presently complaining of lightheadedness now with chest pain she didn't have lightheadedness she was started on Cardizem sustained-release which is probably contributing to her lightheadedness. Patient has uncontrolled blood sugars noncompliant with medications patient states she has diarrhea with metformin because of which she is not taking metformin on regular basis.. Review of Systems REVIEW OF SYSTEMS: CONSTITUTIONAL: No fever, no malaise, no fatigue. HEENT: No recent visual problems or hearing problems. Denied any sore throat. CARDIOVASCULAR: As mentioned in HPI. PULMONARY: No shortness of breath, no cough, no hemoptysis. GASTROINTESTINAL: No diarrhea, no nausea, no vomiting, no abdominal pain. NEUROLOGICAL: No headaches, no weakness, no numbness. HEMATOLOGICAL: Denies any bleeding or petechiae. GENITOURINARY: Denies any burning micturition, frequency, or urgency. MUSCULOSKELETAL/RHEUMATOLOGICAL: Denies any joint pain, swelling, or any muscle pain. ENDOCRINE: Denies any polyuria or polydipsia. The rest of the 14-point review of systems is negative. Past Medical History Past Medical History: Coronary Artery Disease (CAD), Diabetes Mellitus, Sleep Apnea/CPAP/BIPAP, Thyroid Disorder Additional Past Medical History / Comment(s): coronary artery spasms History of Any Multi-Drug Resistant Organisms: None Reported Past Surgical History: Cholecystectomy, Hysterectomy, Joint Replacement Additional Past Surgical History / Comment(s): left knee replacement Past Anesthesia/Blood Transfusion Reactions: Family History of Problems w/ Anesthesia Additional Past Anesthesia/Blood Transfusion Reaction / Comment(s): sister has diff coming out Smoking Status: Former smoker - Past Family History Sister(s) Family Medical History: Cancer, Deep Vein Thrombosis (DVT) Medications and Allergies Home Medications Medication Instructions Recorded Confirmed Type Levothyroxine Sodium [Synthroid] 150 mcg PO DAILY 09/09/19 09/09/19 History Allergies Allergy/AdvReac Type Severity Reaction Status Date / Time No Known Allergies Allergy Verified 09/09/19 10:48 Physical Exam Vitals: Vital Signs Temp Pulse Pulse Resp BP BP Pulse Ox 09/09/19 12:00 98.2 F 53 L 19 123/74 98 09/09/19 08:00 98.3 F 79 18 123/81 95 09/09/19 05:00 62 18 125/68 96 09/09/19 00:00 98.0 F 66 18 130/80 97 09/08/19 23:47 98.1 F 09/08/19 23:10 68 135/65 95 09/08/19 22:50 67 149/83 96 09/08/19 22:40 69 149/83 97 09/08/19 22:10 69 137/96 97 09/08/19 21:40 72 123/74 96 09/08/19 21:20 79 136/78 95 09/08/19 21:00 81 120/71 96 09/08/19 20:44 72 18 136/78 98 09/08/19 20:36 98.2 F 70 20 133/78 99 Intake and Output 09/08/19 09/09/19 09/09/19 22:59 06:59 14:59 Other: Voiding Method Toilet Toilet # Voids 1 1 Weight 120.202 kg 118.7 kg PHYSICAL EXAMINATION: GENERAL: The patient is alert and oriented x3, not in any acute distress. Well developed, well nourished. HEENT: Pupils are round and equally reacting to light. EOMI. No scleral icterus. No conjunctival pallor. Normocephalic, atraumatic. No pharyngeal erythema. No thyromegaly. CARDIOVASCULAR: S1 and S2 present. No murmurs, rubs, or gallops. PULMONARY: Chest is clear to auscultation, no wheezing or crackles. ABDOMEN: Soft, nontender, nondistended, normoactive bowel sounds. No palpable organomegaly. MUSCULOSKELETAL: No joint swelling or deformity. EXTREMITIES: No cyanosis, clubbing, or pedal edema. NEUROLOGICAL: Gross neurological examination did not reveal any focal deficits. SKIN: No rashes. Results CBC & Chem 7: 09/08/19 22:07 09/08/19 22:07 Labs: Abnormal Lab Results - Last 24 Hours (Table) 09/08/19 09/08/19 09/09/19 Range/Units 22:07 23:04 03:38 Glucose 344 H (74-99) mg/dL POC Glucose (mg/dL) 311 H (75-99) mg/dL AST 77 H (14-36) U/L ALT 58 H (4-34) U/L Alkaline Phosphatase 136 H (38-126) U/L Total Protein 8.4 H (6.3-8.2) g/dL Triglycerides 230 H (<150) mg/dL Cholesterol 204 H (<200) mg/dL LDL Cholesterol, Calc 113 H (0-99) mg/dL 09/09/19 09/09/19 Range/Units 07:05 11:31 Glucose (74-99) mg/dL POC Glucose (mg/dL) 316 H 234 H (75-99) mg/dL AST (14-36) U/L ALT (4-34) U/L Alkaline Phosphatase (38-126) U/L Total Protein (6.3-8.2) g/dL Triglycerides (<150) mg/dL Cholesterol (<200) mg/dL LDL Cholesterol, Calc (0-99) mg/dL Thrombosis Risk Factor Assmnt - Choose All That Apply Any of the Below Risk Factors Present?: Yes Each Factor Represents 1 point: Obesity (BMI >25) Other Risk Factors: Yes Each Risk Factor Represents 2 Points: Age 61-74 years Other congenital or acquired thrombophilia - If yes, enter type in comment: No Thrombosis Risk Factor Assessment Total Risk Factor Score: 3 Thrombosis Risk Factor Assessment Level: Moderate Risk Assessment and Plan Plan: -Chest pain: Rule out acute, syndromes appears to be bit atypical, cardiology is recommending monitoring for another 24 hours -Coronary vessel spasm history was started on Cardizem which will be continued -Type 2 diabetes mellitus uncontrolled blood sugars due to noncompliance counseling was provided dietary counseling was provided as well and patient will be started on Lantus and if she doesn't like taking insulin probably will discharge her Januvia. I did genetic counsellor that the metformin causes self-limiting diarrhea and shouldn't stop it unless her diarrhea doesn't resolve in about a week to 10 days
--- NOTE | 2019-09-09 15:49 | ECHOF ---
Referral Reason:chest pain MEASUREMENTS -------- HEIGHT: 157.5 cm WEIGHT: 118.4 kg BP: 125/68 RVIDd: 3.8 cm (< 3.3) IVSd: 1.2 cm (0.6 - 1.1) LVIDd: 4.3 cm (3.9 - 5.3) LVPWd: 1.1 cm (0.6 - 1.1) IVSs: 1.4 cm LVIDs: 2.9 cm LVPWs: 1.1 cm LAESV Index (A-L): 13.04 ml/m Ao Diam: 3.3 cm (2.0 - 3.7) AV Cusp: 2.0 cm (1.5 - 2.6) MV EXCURSION: 18.395 mm (> 18.000) MV EF SLOPE: 73 mm/s (70 - 150) EPSS: 0.5 cm MV E Geronimo: 0.84 m/s MV DecT: 236 ms MV A Geronimo: 1.01 m/s MV E/A Ratio: 0.83 RAP: 5.00 mmHg RVSP: 18.74 mmHg FINDINGS -------- Sinus rhythm. This was a technically adequate study. The left ventricular size is normal. There is mild concentric left ventricular hypertrophy. Overa ll left ventricular systolic function is normal with, an EF between 55 - 60 %. The diastolic fillin g pattern is normal for the age of the patient 13.44. The right ventricle is mild to moderately enlarged. Normal LA size by volume 22+/-6 ml/m2. The right atrial size is normal. Interatrial and interventricular septum intact. The aortic valve was not well visualized. There is no evidence of aortic regurgitation. There is no evidence of aortic stenosis. No mitral regurgitation. Mild tricuspid regurgitation present. There is no evidence of pulmonary hypertension. The right v entricular systolic pressure, as measured by Doppler, is 18.74mmHg. There is no pulmonic regurgitation present. The aortic root size is normal. IVC Not well visulized. There is no pericardial effusion. CONCLUSIONS -------- 1. Sinus rhythm. 2. This was a technically adequate study. 3. The left ventricular size is normal. 4. There is mild concentric left ventricular hypertrophy. 5. Overall left ventricular systolic function is normal with, an EF between 55 - 60 %. 6. The diastolic filling pattern is normal for the age of the patient 13.44 7. The right ventricle is mild to moderately enlarged. 8. Normal LA size by volume 22+/-6 ml/m2. 9. The right atrial size is normal. 10. Interatrial and interventricular septum intact. 11. The aortic valve was not well visualized. 12. There is no evidence of aortic regurgitation. 13. There is no evidence of aortic stenosis. 14. No mitral regurgitation. 15. Mild tricuspid regurgitation present. 16. There is no evidence of pulmonary hypertension. 17. The right ventricular systolic pressure, as measured by Doppler, is 18.74mmHg. 18. There is no pulmonic regurgitation present. 19. The aortic root size is normal. 20. IVC Not well visulized. 21. There is no pericardial effusion. ROTARY L[employer]GRAPHIC PRESS OPERATOR: Coretta Baumann RDCS
[2019-09-09 16:45] LABS: Glucose,Whole Blood 183 mg/dL (75-99)
[2019-09-09 16:54] VITALS: RESP 18
[2019-09-09 20:15] LABS: Glucose,Whole Blood 261 mg/dL (75-99)
[2019-09-09] MEDS ORDERED: INSULIN DETEMIR (LEVEMIR) 100 UNIT/ML SYR SQ SCH (21:00)
[2019-09-10 00:24] LABS: Hemoglobin A1C 11.7 % (4.0-6.0)
[2019-09-10] MEDS ORDERED: LEVOTHYROXINE 75 MCG TAB PO SCH (06:30)
[2019-09-10 06:59] LABS: Glucose,Whole Blood 248 mg/dL (75-99)
[2019-09-10 07:29] VITALS: BP 119/77; PULSE 65; TEMP 98.3
[2019-09-10] MEDS: INSULIN ASPART (NovoLOG) 100 UNIT/ML VIAL SQ SCH ×2 (08:57→11:53)
[2019-09-10] MEDS: ASPIRIN 325 MG TAB PO SCH (08:57)
[2019-09-10] MEDS ORDERED: DILTIAZEM CD 120 MG CAP.ER.24H PO SCH (09:00)
--- NOTE | 2019-09-10 09:16 | P.PN ---
Subjective Progress Note Date: 09/10/19 Principal diagnosis: Chest pain This is a very pleasant 59-year-old female patient with a past medical history significant for diabetes type 2 as well as known coronary vasospasm, presented to the emergency room complaining of chest discomfort. The patient was diagnosed was coronary vasospasm based on normal heart catheterization was performed about 2 years ago at [facility] and at that point she was started on oral nitrates. She stated that she stopped taking the medication about a year ago because she did not like the side effect of the medication. She presented to the hospital complaining of chest discomfort, in the mid of the chest, as a dull kind of discomfort, without any radiation to the arm or neck or shoulder, and without any associated symptoms. The workup came in to be unremarkable. The EKG showed sinus rhythm without any significant ST or T-wave abnormalities. The cardiac enzymes were checked and came in to be unremarkable as well. The patient remains hemodynamically stable. I am going to add Cardizem CD to the current medical regimen for possible coronary vasospasm, and review with her heart catheterization from [facility]. I will review with the heart catheterization was performed within the last few years and was unremarkable the patient possibly can be discharged home. The patient was seen today, September 102019. She denies any symptoms of chest pain or chest discomfort. Denies any shortness of breath that she would like to go home. Objective - Vital Signs Vital signs: Vital Signs Temp 98.3 F 09/10/19 07:27 Pulse 65 09/10/19 07:27 Resp 18 09/10/19 07:27 BP 119/77 09/10/19 07:27 Pulse Ox 96 09/10/19 07:27 Intake & Output 09/09/19 09/10/19 09/10/19 18:59 06:59 18:59 Other: Voiding Method Toilet Toilet # Voids 1 1 1 - Constitutional General appearance: Present: no acute distress - Respiratory Respiratory: bilateral: CTA - Cardiovascular Rhythm: regular Heart sounds: normal: S1, S2 - Labs CBC & Chem 7: 09/08/19 22:07 09/08/19 22:07 Labs: Abnormal Lab Results - Last 24 Hours (Table) 09/09/19 09/09/19 09/09/19 Range/Units 03:38 11:31 16:44 POC Glucose (mg/dL) 234 H 183 H (75-99) mg/dL Hemoglobin A1c 11.7 H (4.0-6.0) % 09/09/19 09/10/19 Range/Units 20:05 06:58 POC Glucose (mg/dL) 261 H 248 H (75-99) mg/dL Hemoglobin A1c (4.0-6.0) % Assessment and Plan Assessment: Assessment #1 atypical chest discomfort #2 history of coronary vasospasm Plan #1 acute coronary syndrome was ruled out #2 the patient remains asymptomatic #3 she would like to be discharged home
[2019-09-10 11:51] LABS: Glucose,Whole Blood 251 mg/dL (75-99)
[2019-09-10 13:11] VITALS: BMI 47.8
--- NOTE | 2019-09-10 14:53 | P.DS ---
Providers Date of admission: 09/08/19 23:24 Attending physician: Elizabet Johnson Consults: 09/08/19 23:16 Consult Physician Urgent Consulting Provider: Harrison Mari Consult Reason/Comments: chest pain Do you want consulting provider notified?: Yes Primary care physician: Gopi Abraham [facility] Course: 59-year-old female with known history of coronary vasospasm and a cardiac catheterization about 2 years ago came in with complaints of chest pressure-like sensation radiating to the left arm and neck chest discomfort is limited discomfort mid chest area without any diaphoresis lightheadedness shortness of b reath patient chest pain is nonpleuritic not associated with food. Patient is presently complaining of lightheadedness now with chest pain she didn't have lightheadedness she was started on Cardizem sustained-release which is probably contributing to her lightheadedness. Patient has uncontrolled blood sugars noncompliant with medications patient states she has diarrhea with metformin because of which she is not taking metformin on regular basis.. 09/10/2019 Patient is chest pain-free today patient will undergo stress test as an outpatient. Patient cleared by By cardiology PHYSICAL EXAMINATION: GENERAL: The patient is alert and oriented x3, not in any acute distress. Well developed, well nourished. HEENT: Pupils are round and equally reacting to light. EOMI. No scleral icterus. No conjunctival pallor. Normocephalic, atraumatic. No pharyngeal erythema. No thyromegaly. CARDIOVASCULAR: S1 and S2 present. No murmurs, rubs, or gallops. PULMONARY: Chest is clear to auscultation, no wheezing or crackles. ABDOMEN: Soft, nontender, nondistended, normoactive bowel sounds. No palpable organomegaly. MUSCULOSKELETAL: No joint swelling or deformity. EXTREMITIES: No cyanosis, clubbing, or pedal edema. NEUROLOGICAL: Gross neurological examination did not reveal any focal deficits. SKIN: No rashes. Please refer to my dictation of H&P for further details of hospitalization cour se and other medical problems that were addressed Patient Condition at Discharge: Serious Plan - Discharge Summary New Discharge Prescriptions: New Diltiazem Cd [Cardizem CD] 120 mg PO DAILY #30 cap.er.24h No Action Levothyroxine Sodium [Synthroid] 150 mcg PO DAILY Discharge Medication List Levothyroxine Sodium [Synthroid] 150 mcg PO DAILY 09/09/19 [History] Diltiazem Cd [Cardizem CD] 120 mg PO DAILY #30 cap.er.24h 09/10/19 [Rx] Follow up Appointment(s)/Referral(s): Harrison Mari MD [STAFF PHYSICIAN] - 1 Week (patient to call office during office hours, patient is to call to make follow up appointment post hospitalization with Dr. Mari.) Gopi Abraham MD [Primary Care Provider] - 3 Days Patient Instructions/Handouts: Chest Pain (DC) Discharge Disposition: HOME SELF-CARE
== END 2019-09-10 13:45 | disposition home or self-care (01) ==
LOC: EC 20:32 → 1SOBS 23:24
PROVIDERS: ADMIT Hospitalist; ATTEND Hospitalist
DX: R07.89 Other chest pain (principal); E11.65 Type 2 diabetes mellitus with hyperglycemia; I25.111 Atherosclerotic heart disease of native coronary artery with angina pectoris with documented spasm; G47.30 Sleep apnea, unspecified; Z99.89 Dependence on other enabling machines and devices; E07.9 Disorder of thyroid, unspecified; Z91.14 Patient's other noncompliance with medication regimen; Z71.3 Dietary counseling and surveillance; Z79.890 Hormone replacement therapy; Z79.899 Other long term (current) drug therapy; Z90.49 Acquired absence of other specified parts of digestive tract; Z90.710 Acquired absence of both cervix and uterus; Z96.652 Presence of left artificial knee joint; Z87.891 Personal history of nicotine dependence; Z80.8 Family history of malignant neoplasm of other organs or systems; Z82.49 Family history of ischemic heart disease and other diseases of the circulatory system
CPT/HCPCS: 93005 ×2; 96360; 99285; 36415; 93306; 83880; 80061; 80053; 83735; 84484 ×2; 85025; 85610; 85730; 87502; 83036; 71046; G0378 ×3

== ENCOUNTER 2020-02-02 19:49 | Emergency (ER) | payer MEDICARE ==
[2020-02-02] MEDS ORDERED: DEXAMETHASONE 4 MG TAB PO STA (20:11)
[2020-02-02] MEDS ORDERED: RACEPINEPHRINE 2.25% NEB 0.5 ML NEBU INHALATION STA (20:11)
--- NOTE | 2020-02-02 20:14 | ED ---
General Adult HPI - General Chief complaint: Shortness of Breath Stated complaint: LIO Time Seen by Provider: 02/02/20 20:00 Source: patient Mode of arrival: wheelchair Limitations: no limitations - History of Present Illness Initial comments: Dictation was produced using i-drive dictation software. please excuse any grammatical, word or spelling errors. This patient was cared for during a federal and state declared state of emergency secondary to Covid 19 Chief Complaint: 59-year-old female presents with chief complaint of shortness of breath. History of Present Illness: 1-year-old female she has past medical history of coronary artery spasms. She states that over the last week she's been having intermittent episodes of shortness of breath. States that when she exerts herself she feels as though she is short of breath. She says that it feels like she is breathing through a straw in her throat. Denies any history of COPD or asthma. She has no history of heart failure. She has no history of endotracheal intubations or neck diseases. The ROS documented in this emergency department record has been reviewed and confirmed by me. Those systems with pertinent positive or negative responses have been documented in the HPI. All other systems are other negative and/or noncontributory. PHYSICAL EXAM: General Impression: Alert and oriented x3, not in acute distress, no tripoding, no stridor, no drooling, no voice hoarseness or voice abnormalities HEENT: Normocephalic atraumatic, extra-ocular movements intact, pupils equal and reactive to light bilaterally, mucous membranes moist. Cardiovascular: Heart regular rate and rhythm Chest: Able to complete full sentences, no retractions, no tachypnea, lungs clear to auscultation bilaterally Abdomen: abdomen soft, non-tender, non-distended, no organomegaly Musculoskeletal: Pulses present and equal in all extremities, no peripheral edema Motor: no focal deficits noted Neurological: CN II-XII grossly intact, no focal motor or sensory deficits noted Skin: Intact with no visualized rashes Psych: Normal affect and mood ED course: 59-year-old female who presents with a chief complaint of shortness of breath. She scratches symptoms as feeling as though she is breathing through a straw in her throat. As upon arrival are within acceptable limits. Patient's well-appearing. Physical examination is benign. Patient appears nontoxic. However she is given some racemic epinephrine and Decadron for symptom relief. Patient reevaluated at bedside after interventions with significant improvement of symptoms. Patient continues to be well- appearing. Patient told to follow-up with primary care physician upon discharge. EKG interpretation: Ventricular rate 80, normal sinus rhythm, IA interval 188, QRS 90, QTc 447. No IA prolongation, no QTC prolongation, no ST or T-wave changes noted. EKG compared to a retired first 2020 showing no changes. O verall, this EKG is unremarkable - Related Data Home Medications Medication Instructions Recorded Confirmed Levothyroxine Sodium [Synthroid] 175 mcg PO DAILY 02/02/20 02/02/20 Previous Rx's Medication Instructions Recorded Diltiazem Cd [Cardizem CD] 120 mg PO DAILY #30 cap.er.24h 09/10/19 Allergies Allergy/AdvReac Type Severity Reaction Status Date / Time No Known Allergies Allergy Verified 02/02/20 21:08 Review of Systems ROS Statement: Those systems with pertinent positive or pertinent negative responses have been documented in the HPI. ROS Other: All systems not noted in ROS Statement are negative. Past Medical History Past Medical History: Coronary Artery Disease (CAD), Diabetes Mellitus, Sleep Apnea/CPAP/BIPAP, Thyroid Disorder Additional Past Medical History / Comment(s): coronary artery spasms History of Any Multi-Drug Resistant Organisms: None Reported Past Surgical History: Cholecystectomy, Hysterectomy, Joint Replacement Additional Past Surgical History / Comment(s): left knee replacement Past Anesthesia/Blood Transfusion Reactions: Family History of Problems w/ Anesthesia Additional Past Anesthesia/Blood Transfusion Reaction / Comment(s): sister has diff coming out Past Psychological History: No Psychological Hx Reported Smoking Status: Former smoker Past Alcohol Use History: None Reported Past Drug Use History: None Reported - Past Family History Sister(s) Family Medical History: Cancer, Deep Vein Thrombosis (DVT) General Exam Limitations: no limitations Course Vital Signs 02/02/20 02/02/20 02/02/20 19:57 20:13 20:44 Temperature 98.3 F Pulse Rate 86 71 Respiratory 20 20 Rate Blood Pressure 127/82 O2 Sat by Pulse 95 Oximetry 02/02/20 02/02/20 02/02/20 20:51 21:50 22:15 Temperature 97.6 F Pulse Rate 74 77 71 Respiratory 18 16 Rate Blood Pressure 137/75 132/72 O2 Sat by Pulse 96 95 Oximetry Disposition Clinical Impression: Sore throat Disposition: HOME SELF-CARE Condition: Good Instructions (If sedation given, give patient instructions): Strep Throat (ED) Is patient prescribed a controlled substance at d/c from ED?: No Referrals: Gopi Abraham MD [Primary Care Provider] - 1-2 days Time of Disposition: 22:24
[2020-02-02] MEDS ORDERED: SODIUM CHLORIDE 0.9% NEBULIZ 3 ML INHALATION STA (20:33)
--- NOTE | 2020-02-02 22:07 | XR ---
EXAMINATION TYPE: XR soft tissue neck DATE OF EXAM: 02/02/2020 COMPARISON: NONE HISTORY: Throat constriction. Pain. TECHNIQUE: 2 views FINDINGS: Epiglottis is normal. Prevertebral soft tissues appear normal. Subglottic trachea appears n ormal. Tonsils and adenoids appear normal. Cervical vertebra have normal spacing and alignment. Poste rior elements are intact. IMPRESSION: Negative cervical soft tissue exam. No sign of a foreign body.
[2020-02-02 22:16] VITALS: BP 132/72; PULSE 71; RESP 16; TEMP 97.6
== END 2020-02-02 22:35 | disposition home or self-care (01) ==
LOC: EC 19:49
DX: J02.9 Acute pharyngitis, unspecified (principal); I25.10 Atherosclerotic heart disease of native coronary artery without angina pectoris; E07.9 Disorder of thyroid, unspecified; G47.30 Sleep apnea, unspecified; Z87.891 Personal history of nicotine dependence; Z99.89 Dependence on other enabling machines and devices; Z79.890 Hormone replacement therapy; Z96.652 Presence of left artificial knee joint
CPT/HCPCS: 94640; 93005; 70360; 99285; J8540

== ENCOUNTER → 2021-11-04 | Outpatient (CLI) | payer MEDICARE ==
--- NOTE | 2021-11-04 12:42 | BD ---
EXAMINATION TYPE: Axial Bone Density DATE OF EXAM: 11/04/2021 COMPARISON: NONE CLINICAL HISTORY: 61 years year old Female. ICD-10 CODE: Z78.0 Height: 62 Weight: 242.5 FRAX RISK QUESTIONS: Alcohol (3 or more units per day): no Family History (Parent hip fracture): no Glucocorticoids (More than 3mos): no (Ex: prednisone, prednisolone, methylprednisolone, dexamethasone, and hydrocortisone). History of Fracture in Adulthood: no Secondary Osteoporosis: 1. Type 1 Diabetes: no 2. Hyperthyroidism: no 3. Menopause before 45: yes 4. Malnutrition: no 5. Chronic liver disease: no Rheumatoid Arthritis: no Current Tobacco Use: no RISK FACTORS HISTORY OF: Surgery to Spine/Hip(right/left)/Wrist (right/left): no Family History of Osteoporosis: no Active: yes Diet low in dairy products/other sources of calcium: yes Postmenopausal woman: yes Lost more than 2 inches in height since high school: no MEDICATIONS: type 2 diabetic meds Thyroid Medications: levothyroxine 175 How Lon years Additional History: EXAM MEASUREMENTS: Bone mineral densitometry was performed using the [employer]. Bone mineral density as measured about the Lumbar spine is: ----- L1-L4(G/cm2): 0.999 T Score Values are as follows: ----- L1: -1.4 ----- L2: -1.8 ----- L3: -0.9 ----- L4: -2.0 ----- L1-L4: -1.5 Bone mineral density : baseline Bone mineral density about the R hip (g/cm2): 0.911 Bone mineral density about the L hip (g/cm2): 0.816 T Score values are as follows: -----R Neck: -0.9 -----L Neck: -1.6 -----R Total: -0.1 -----L Total: -0.2 Bone mineral density : baseline FRAX%s: The graph provided illustrates a 7.7% chance for a major osteoporotic fx and a 0.7% chance fo r the hips probability for fx in 10 years time. IMPRESSION: Osteopenia (T Score between -2.5 and -1). There is slightly increased risk of fracture and the patient may be considered for treatment. Re-Screen 2-5 years. NOTE: T-SCORE=SD OF THE YOUNG ADULT MEAN.
--- NOTE | 2021-11-06 10:49 | MM ---
Reason for exam: screening (asymptomatic). History: Patient is postmenopausal. Family history of breast cancer in sister at age 41. Benign excisional biopsy of the left breast, 1991. Physical Findings: A clinical breast exam by your physician is recommended on an annual basis and results should be correlated with mammographic findings. MG 3D Screening Mammo W/Cad Bilateral CC, MLO, and XCCL view(s) were taken. No prior studies available for comparison. There are scattered fibroglandular densities. No significant changes when compared with prior studies. ASSESSMENT: Benign, BI-RAD 2 RECOMMENDATION: Routine screening mammogram of both breasts in 1 year.
== END | disposition home or self-care (01) ==
LOC: RADMAMWWP 08:27
PROVIDERS: ATTEND Family Medicine
DX: M81.8 Other osteoporosis without current pathological fracture (principal)
CPT/HCPCS: 77063; 77067; 77080

== ENCOUNTER 2022-05-08 04:11 | Emergency (ER) | payer MEDICARE ==
[2022-05-08 04:16] VITALS: RESP 19; TEMP 97.7
[2022-05-08] MEDS ORDERED: LIDOCAINE 5% PATCH TOPICAL STA (04:59)
--- NOTE | 2022-05-08 05:16 | XR ---
EXAMINATION TYPE: XR chest 1V portable DATE OF EXAM: 05/08/2022 COMPARISON: 07/08/2020 HISTORY: Right rib pain TECHNIQUE: FINDINGS: Heart and mediastinum are normal. Lungs are clear. Diaphragm is normal. Bony thorax is inta ct. IMPRESSION: No active cardiopulmonary disease. Normal heart. No change.
--- NOTE | 2022-05-08 05:26 | ED ---
General Adult HPI - General Chief complaint: Recheck/Abnormal Lab/Rx Stated complaint: Right Side Pain Time Seen by Provider: 05/08/22 04:45 Source: patient, RN notes reviewed, old records reviewed Mode of arrival: wheelchair - History of Present Illness Initial comments: Patient is a 62-year-old female with past medical history remarkable for CAD, diabetes who presents emergency Department complaining of right rib pain. Was diagnosed with a right rib injury twice over the last week. Initially, was told she had no broken rib on the right side. May have had a bruise. States that the pain got worse and he presented to the outside hospital where they did no imaging but told her she likely had a broken rib. Patient presents today for further evaluation and she states the pain is somewhat worsening. States it is located over the front, however now it does radiate around her side in a belt like distribution along the same rib and underneath it where it hurts. Denies any shortness of breath. Denies any difficulty breathing. Denies any cough, fevers. Denies any other chest pain. States it hurts with movement as well as with deep breaths in. Denies nausea or abdominal pain. States she initially hurt her rib when she was reaching into her trunk lifting a heavy the object and felt something pop. - Related Data Home Medications Medication Instructions Recorded Confirmed Levothyroxine Sodium [Synthroid] 175 mcg PO DAILY 02/02/20 02/02/20 Previous Rx's Medication Instructions Recorded Diltiazem Cd [Cardizem CD] 120 mg PO DAILY #30 cap.er.24h 09/10/19 Lidocaine 5% Patch [Lidoderm 5% 1 patch TOPICAL DAILY PRN 7 Days 05/08/22 Patch] #7 patch Allergies Allergy/AdvReac Type Severity Reaction Status Date / Time No Known Allergies Allergy Verified 05/08/22 04:16 Review of Systems ROS Statement: Those systems with pertinent positive or pertinent negative responses have been documented in the HPI. Review of Systems: CONST: Denies fever EYES: Denies blurry vision ENT: Denies nasal congestion C/V: Denies Chest pain RESP: Denies shortness of breath GI: Denies abdominal pain : Denies dysuria SKIN: Denies rash. MSK: Endorses right-sided rib pain NEURO: Denies headache ROS Other: All systems not noted in ROS Statement are negative. Past Medical History Past Medical History: Coronary Artery Disease (CAD), Diabetes Mellitus, Sleep Apnea/CPAP/BIPAP, Thyroid Disorder Additional Past Medical History / Comment(s): coronary artery spasms History of Any Multi-Drug Resistant Organisms: None Reported Past Surgical History: Cholecystectomy, Hysterectomy, Joint Replacement Additional Past Surgical History / Comment(s): left knee replacement Past Anesthesia/Blood Transfusion Reactions: Family History of Problems w/ Anesthesia Additional Past Anesthesia/Blood Transfusion Reaction / Comment(s): sister has diff coming out Past Psychological History: No Psychological Hx Reported Smoking Status: Former smoker Past Alcohol Use History: None Reported Past Drug Use History: None Reported - Past Family History Sister(s) Family Medical History: Cancer, Deep Vein Thrombosis (DVT) General Exam - General Exam Comments Initial Comments: General: Appears in no acute distress. HEAD: Normal with no signs of head trauma. EYES: EOMI ENT: Hearing grossly intact RESPIRATORY: Clear breath sounds bilaterally. No wheezes, rales, or rhonchi. Respiratory distress. No hypoxia. C/V: Regular rate and rhythm. S1 and S2 auscultated. Peripheral pulses 2+ and intact throughout. ABD: Abdomen is nondistended, nontender. Soft. EXT: Normal range of motion, no obvious deformity. Tetanus palpation over the anterior aspect of the inferior ribs in the midclavicular line radiating around the right flank towards her spine. Stops in the posterior axillary line. No obvious step-offs appreciated. No flail chest appreciated. SKIN: No rashes or lesions observed on exposed skin. NEURO: Alert and oriented 4. Course Vital Signs 05/08/22 04:14 Temperature 97.7 F Pulse Rate 73 Respiratory 19 Rate Blood Pressure 156/89 O2 Sat by Pulse 100 Oximetry Medical Decision Making - Medical Decision Making Based on the patient's presentation and physical exam, I believe she likely has a rib contusion versus rib fracture. I would like to obtain a chest x-ray to evaluate for any signs of pneumothorax or rib fracture. She was in agreement with this plan. We discussed at length that her symptoms are typical for refraction they do take time to heal. She was sent home with Duncan as well as ibuprofen. She is no signs or symptoms of pneumonia at this time but we will provide her with an incentive spirometer in addition to lidocaine patches for home. She was in agreement with this plan as well. No other laboratory studies or imaging are required at this time. Chest x-ray shows no acute cardiopulmonary process. No rib fracture patient. We discussed the finding with the patient. The plan is for discharge home with an incentive spirometer, lidocaine patches as well as the pain medications provided by the outside emergency Department. She will follow-up with her primary care physician. Discuss that it will take many duties possibly weeks for her contusion versus rib fracture to heal. Discussed that x-rays are not the best method for diagnosing rib fractures but she appears to only have one site of injury, and no signs of flail chest so more extensive imaging is not warranted at this time. She expressed understanding and was in agreement this plan. I will provide the patient with a prescription for lidocaine patches. I instructed the patient to follow up with their PCP in the next 1-3 days. I explained that the patient should return to the emergency department if they experience any worsening symptoms. Strict return precautions were discussed with the patient. The patient expressed understanding of these instructions. I answered all questions that the patient had. The patient was discharged home in good condition with their prescriptions and follow up information. Disposition Clinical Impression: Rib contusion Disposition: HOME SELF-CARE Condition: Good Instructions (If sedation given, give patient instructions): Rib Contusion (ED), How to Use an Incentive Spirometer (ED) Prescriptions: Lidocaine 5% Patch [Lidoderm 5% Patch] 1 patch TOPICAL DAILY PRN 7 Days #7 patch PRN Reason: Pain Is patient prescribed a controlled substance at d/c from ED?: No Referrals: Jani White MD [Primary Care Provider] - 1-2 days Time of Disposition: 05:20
[2022-05-08 05:42] VITALS: BP 148/84; PULSE 70
== END 2022-05-08 05:42 | disposition home or self-care (01) ==
LOC: EC 04:11
DX: S20.211A Contusion of right front wall of thorax, initial encounter (principal); I25.10 Atherosclerotic heart disease of native coronary artery without angina pectoris; E11.9 Type 2 diabetes mellitus without complications; E07.9 Disorder of thyroid, unspecified; Z87.891 Personal history of nicotine dependence; Z79.890 Hormone replacement therapy; X58.XXXA Exposure to other specified factors, initial encounter
CPT/HCPCS: 71045; 99283

== ENCOUNTER 2022-07-26 19:54 | Observation (INO) | payer MEDICARE ==
[2022-07-26] MEDS ORDERED: SODIUM CHLORIDE 0.9% 1,000 ML IV STA (20:20)
--- NOTE | 2022-07-26 21:15 | XR ---
EXAMINATION TYPE: XR chest 2V DATE OF EXAM: 07/26/2022 9:09 PM COMPARISON: Chest x-ray 05/08/2022 TECHNIQUE: XR chest 2V . CLINICAL INDICATION:Female, 62 years old with history of Cough/pain; FINDINGS: Lungs/Pleura: There is no evidence of pleural effusion, focal consolidation, or pneumothorax. Pulmonary vascularity: Unremarkable. Heart/mediastinum: Cardiomediastinal silhouette is unremarkable. Atherosclerotic calcifications are seen in the aorta. Musculoskeletal: Multiple level degenerative disc disease changes seen throughout the spine. IMPRESSION: No acute cardiopulmonary disease/process.
--- NOTE | 2022-07-26 21:46 | ED ---
General Adult HPI - General Chief complaint: Chest Pain Stated complaint: Nausea, Vomiting Time Seen by Provider: 07/26/22 21:10 Source: patient, EMS Mode of arrival: EMS Limitations: no limitations - History of Present Illness Initial comments: 62-year-old female past medical history of coronary vasospasm on Cardizem who presents to the emergency department reporting chest pain. States that today she woke up and she was having nausea and vomiting. States it's nonbilious and nonbloody. No sick contacts with similar symptoms. Did not eat any tainted foods. Had several episodes of retching. Also had 2 episodes of diarrhea. States it's nonbloody. No fevers. Has generalized abdominal discomfort from throwing up. She then began having some chest pressure. Did take her Cardizem today. Denies history of DC. No changes in her urination to include dysuria, hematuria or difficulty voiding. No other alleviating, Perceptin or modifying factors - Related Data Previous Rx's Medication Instructions Recorded Diltiazem Cd [Cardizem CD] 120 mg PO DAILY #30 cap.er.24h 09/10/19 Levothyroxine Sodium [Synthroid] 200 mcg PO DAILY@0630 30 Days #60 07/27/22 tab Allergies Allergy/AdvReac Type Severity Reaction Status Date / Time No Known Allergies Allergy Verified 07/26/22 21:32 Review of Systems ROS Statement: Those systems with pertinent positive or pertinent negative responses have been documented in the HPI. ROS Other: All systems not noted in ROS Statement are negative. Past Medical History Past Medical History: Coronary Artery Disease (CAD), Diabetes Mellitus, Sleep Apnea/CPAP/BIPAP, Thyroid Disorder Additional Past Medical History / Comment(s): coronary artery spasms History of Any Multi-Drug Resistant Organisms: None Reported Past Surgical History: Cholecystectomy, Hysterectomy, Joint Replacement Additional Past Surgical History / Comment(s): left knee replacement Past Anesthesia/Blood Transfusion Reactions: Family History of Problems w/ Anesthesia Additional Past Anesthesia/Blood Transfusion Reaction / Comment(s): sister has diff coming out Past Psychological History: No Psychological Hx Reported Smoking Status: Former smoker Past Alcohol Use History: None Reported Past Drug Use History: None Reported - Past Family History Sister(s) Family Medical History: Cancer, Deep Vein Thrombosis (DVT) General Exam Limitations: no limitations General appearance: alert, in no apparent distress Head exam: Present: atraumatic, normocephalic, normal inspection Eye exam: Present: normal appearance, PERRL, EOMI. Absent: scleral icterus, conjunctival injection, periorbital swelling ENT exam: Present: normal exam, mucous membranes moist Neck exam: Present: normal inspection. Absent: tenderness, meningismus, lymphadenopathy Respiratory exam: Present: normal lung sounds bilaterally. Absent: respiratory distress, wheezes, rales, rhonchi, stridor Cardiovascular Exam: Present: regular rate, tachycardia, normal heart sounds. Absent: systolic murmur, diastolic murmur, rubs, gallop, clicks GI/Abdominal exam: Present: soft, normal bowel sounds. Absent: distended, tenderness, guarding, rebound, rigid Extremities exam: Present: normal inspection, full ROM, normal capillary refill. Absent: tenderness, pedal edema, joint swelling, calf tenderness Back exam: Present: normal inspection Neurological exam: Present: alert, oriented X3, CN II-XII intact Psychiatric exam: Present: normal affect, normal mood Skin exam: Present: warm, dry, intact, normal color. Absent: rash Course Vital Signs 07/26/22 07/26/22 07/26/22 20:34 21:37 22:00 Temperature 98 F Pulse Rate 119 H 103 H 101 H Respiratory 16 16 16 Rate Blood Pressure 126/75 116/84 122/75 O2 Sat by Pulse 93 L 88 L 94 L Oximetry 07/26/22 23:00 Temperature Pulse Rate 108 H Respiratory 16 Rate Blood Pressure 125/69 O2 Sat by Pulse 95 Oximetry - Reevaluation(s) Reevaluation #1: Original delay in evaluation due to bed bugs and need for decon 07/26/222029 EKG Findings - EKG Comments: EKG Findings:: EKG demonstrates sinus tachycardia with rate of 106. KS interval 164. QRS 85. QTC 384. No acute ST segment elevations or depressions Medical Decision Making - Medical Decision Making Was pt. sent in by a medical professional or institution? no Did you speak to anyone other than the patient for history? no Did you review nursing and triage notes? yes and I agree Were old charts reviewed? previous admissions Differential Diagnosis? acs, nstemi, stemi, chest wall strain, pulmonary embolism, coronary vasospasm, aortic dissection, pleurisy EKG interpreted by me (3pts min.)? yes X-rays interpreted by me (1pt min.)? yes CT interpreted by me (1pt min.)? no U/S interpreted by me (1pt. min.)? no What testing was considered but not performed? (CT, X-rays, U/S, labs)? Why? none What meds were considered but not given? Why? none Did you discuss the management of the patient with other professionals? admitting physician Did you reconcile home meds? yes Was smoking cessation discussed for >3mins.? no Was critical care preformed (if so, how long)? no Were there social determinants of health that impacted care today? How? (Homelessness, low income, unemployed, alcoholism, drug addiction, transportation, low edu. Level, literacy, decrease access to med. care, snf, rehab)? bed bugs - delay in patient care as she needed to be showered first before I could evaluate the patient Was there de-escalation of care discussed even if they declined? (Discuss DNR or withdrawal of care, Hospice)? no What co-morbidities impacted this encounter? (DM, HTN, Smoking, COPD, CAD, Cancer, CVA, Hep., AIDS, mental health diagnosis, sleep apnea, morbid obesity)? DM, HTN Was patient admitted / discharged? @On arrival patient was placed into room 18. It is noted that the patient does have bedbugs and therefore she is taken to [facility]. Patient then placed in room 16. Thorough history and physical exam is performed. Patient is tachycardic. IV is established and laboratory studies are conducted. Patient is suffering influenza which is negative. Chest x-rays performed which demonstrates no acute process. Results are discussed with the patient. She does have improvement in her nausea after she was given 4 mg of Zofran from EMS. Due to chest pain the patient is given 4 chewable aspirins. Patient will be admitted for chest pain rule out. I spoke with Sita from [facility] who agreed to admission Undiagnosed new problem with uncertain prognosis? yes Drug Therapy requiring intensive monitoring for toxicity (Heparin, Nitro, Insulin, Cardizem)? no Were any procedures done? no Diagnosis/symptom? acute chest pain Acute, or Chronic, or Acute on Chronic? acute Uncomplicated (without systemic symptoms) or Complicated (systemic symptoms)? complicated Side effects of treatment? headache Exacerbation, Progression, or Severe Exacerbation] no Poses a threat to life or bodily function? yes - Lab Data Result diagrams: 07/27/22 03:29 07/27/22 03:29 Lab Results 07/26/22 07/26/22 07/26/22 Range/Units 21:26 21:26 21:26 WBC 5.8 (3.8-10.6) k/uL RBC 4.54 (3.80-5.40) m/uL Hgb 15.1 (11.4-16.0) gm/dL Hct 42.5 (34.0-46.0) % MCV 93.5 (80.0-100.0) fL MCH 33.2 (25.0-35.0) pg MCHC 35.5 (31.0-37.0) g/dL RDW 13.0 (11.5-15.5) % Plt Count 185 (150-450) k/uL MPV 7.5 Neutrophils % 88 % Lymphocytes % 6 % Monocytes % 3 % Eosinophils % 2 % Basophils % 0 % Neutrophils # 5.1 (1.3-7.7) k/uL Lymphocytes # 0.3 L (1.0-4.8) k/uL Monocytes # 0.2 (0-1.0) k/uL Eosinophils # 0.1 (0-0.7) k/uL Basophils # 0.0 (0-0.2) k/uL Sodium 137 (137-145) mmol/L Potassium 4.4 (3.5-5.1) mmol/L Chloride 104 (98-107) mmol/L Carbon Dioxide 23 (22-30) mmol/L Anion Gap 10 mmol/L BUN 15 (7-17) mg/dL Creatinine 0.81 (0.52-1.04) mg/dL Est GFR (CKD-EPI)AfAm 89 (>60 ml/min/1.73 sqM) Est GFR (CKD-EPI)NonAf 78 (>60 ml/min/1.73 sqM) Glucose 217 H (74-99) mg/dL Calcium 8.8 (8.4-10.2) mg/dL Magnesium 1.6 (1.6-2.3) mg/dL Total Bilirubin 0.8 (0.2-1.3) mg/dL AST 63 H (14-36) U/L ALT 38 H (4-34) U/L Alkaline Phosphatase 110 (38-126) U/L Troponin I <0.012 (0.000-0.034) ng/mL Total Protein 7.6 (6.3-8.2) g/dL Albumin 4.3 (3.5-5.0) g/dL Lipase 132 (23-300) U/L Influenza Type A RNA (Not Detectd) Influenza Type B (PCR) (Not Detectd) 07/26/22 Range/Units 21:30 WBC (3.8-10.6) k/uL RBC (3.80-5.40) m/uL Hgb (11.4-16.0) gm/dL Hct (34.0-46.0) % MCV (80.0-100.0) fL MCH (25.0-35.0) pg MCHC (31.0-37.0) g/dL RDW (11.5-15.5) % Plt Count (150-450) k/uL MPV Neutrophils % % Lymphocytes % % Monocytes % % Eosinophils % % Basophils % % Neutrophils # (1.3-7.7) k/uL Lymphocytes # (1.0-4.8) k/uL Monocytes # (0-1.0) k/uL Eosinophils # (0-0.7) k/uL Basophils # (0-0.2) k/uL Sodium (137-145) mmol/L Potassium (3.5-5.1) mmol/L Chloride (98-107) mmol/L Carbon Dioxide (22-30) mmol/L Anion Gap mmol/L BUN (7-17) mg/dL Creatinine (0.52-1.04) mg/dL Est GFR (CKD-EPI)AfAm (>60 ml/min/1.73 sqM) Est GFR (CKD-EPI)NonAf (>60 ml/min/1.73 sqM) Glucose (74-99) mg/dL Calcium (8.4-10.2) mg/dL Magnesium (1.6-2.3) mg/dL Total Bilirubin (0.2-1.3) mg/dL AST (14-36) U/L ALT (4-34) U/L Alkaline Phosphatase (38-126) U/L Troponin I (0.000-0.034) ng/mL Total Protein (6.3-8.2) g/dL Albumin (3.5-5.0) g/dL Lipase (23-300) U/L Influenza Type A RNA Not Detected (Not Detectd) Influenza Type B (PCR) Not Detected (Not Detectd) Disposition Clinical Impression: Chest pain Disposition: ADMITTED IP TO THIS [facility] Condition: Stable Is patient prescribed a controlled substance at d/c from ED?: No Time of Disposition: 23:07 Decision to Admit Reason: Admit from EC Decision Date: 07/26/22 Decision Time: 23:07
[2022-07-26 21:48] LABS: Basophils % (A) 0 %; Eosinophils # (A) 0.1 k/uL (0-0.7); Eosinophils % (A) 2 %; HCT 42.5 % (34.0-46.0); HGB 15.1 gm/dL (11.4-16.0); Lymphocytes # (A) 0.3 k/uL (1.0-4.8); Lymphocytes % (A) 6 %; MCH 33.2 pg (25.0-35.0); MCHC 35.5 g/dL (31.0-37.0); MCV 93.5 fL (80.0-100.0); Mean Platelet Volume 7.5; Monocytes # (A) 0.2 k/uL (0-1.0); Monocytes % (A) 3 %; Neutrophils # (A) 5.1 k/uL (1.3-7.7); Neutrophils % (A) 88 %; Platelet Count 185 k/uL (150-450); RBC 4.54 m/uL (3.80-5.40); WBC 5.8 k/uL (3.8-10.6)
[2022-07-26 22:15] LABS: Albumin 4.3 g/dL (3.5-5.0); Calcium 8.8 mg/dL (8.4-10.2); Magnesium 1.6 mg/dL (1.6-2.3); Potassium 4.4 mmol/L (3.5-5.1); Total Bilirubin 0.8 mg/dL (0.2-1.3); Total Protein 7.6 g/dL (6.3-8.2)
[2022-07-26] MEDS ORDERED: ASPIRIN 81 MG PO STA (23:05)
[2022-07-26] MEDS ORDERED: ONDANSETRON 4 MG/2 ML VIAL IVP PRN (23:10)
[2022-07-26] MEDS ORDERED: NALOXONE 0.4 MG/ML 1 ML VIAL IV PRN (23:10)
[2022-07-26] MEDS: SODIUM CHLORIDE 0.9% 1,000 ML IV SCH (23:18)
[2022-07-27 03:06] LABS: Appearance,Urine Cloudy (Clear); Bacteria,Urine Rare /hpf; Bilirubin,Urine Negative (Negative); Blood,Urine Negative (Negative); Color,Urine Yellow; Glucose,Urine (UA) 1+ (Negative); Ketones,Urine Negative (Negative); Leukocyte Esterase,Urine Small (Negative); Mucus,Urine Occasional /hpf; Nitrite,Urine Negative (Negative); Protein,Urine 1+ (Negative); RBC,Urine 1 /hpf (0-5); Specific Gravity,Urine 1.028 (1.001-1.035); Squamous Epithelial Cell,Urine 6 /hpf (0-4); Urobilinogen,Urine <2.0 mg/dL (<2.0); WBC,Urine 11 /hpf (0-5)
[2022-07-27 03:39] LABS: Basophils % (A) 0 %; Eosinophils # (A) 0.1 k/uL (0-0.7); Eosinophils % (A) 2 %; HCT 41.5 % (34.0-46.0); HGB 14.8 gm/dL (11.4-16.0); Lymphocytes # (A) 0.5 k/uL (1.0-4.8); Lymphocytes % (A) 10 %; MCH 33.6 pg (25.0-35.0); MCHC 35.6 g/dL (31.0-37.0); MCV 94.3 fL (80.0-100.0); Mean Platelet Volume 7.4; Monocytes # (A) 0.2 k/uL (0-1.0); Monocytes % (A) 4 %; Neutrophils # (A) 4.4 k/uL (1.3-7.7); Neutrophils % (A) 83 %; Platelet Count 188 k/uL (150-450); RDW 13.5 % (11.5-15.5); WBC 5.3 k/uL (3.8-10.6)
[2022-07-27 03:55] LABS: Calcium 8.4 mg/dL (8.4-10.2); Potassium 4.5 mmol/L (3.5-5.1)
[2022-07-27] MEDS ORDERED: LEVOTHYROXINE 88 MCG TAB PO SCH (06:30)
[2022-07-27] MEDS: SODIUM CHLORIDE 0.9% 1,000 ML IV SCH ×3 (07:48→22:22)
[2022-07-27] MEDS: DILTIAZEM CD 120 MG CAP.ER.24H PO SCH (09:03)
[2022-07-27 10:13] LABS: T4, Free (Free Thyroxine) 0.66 ng/dL (0.78-2.19)
--- NOTE | 2022-07-27 10:17 | P.CRDCN ---
History of Present Illness Consult date: 07/27/22 Reason for Consult (text): Acute chest pain, history of coronary vasospasm History of present illness: HISTORY OF PRESENT ILLNESS This is a 62-year-old female with past history of diabetes mellitus, hypothyroidism, coronary vasospasm based on a normal heart catheterization performed in 2018 at [facility] for which she is on Cardizem, remote history of tobacco use and dependence. Patient has not been seen in cardiology office since February [address] Mari. Patient presented to the emergency center due to nausea, vomiting, diarrhea and generalized abdominal pain and patient subsequently developed chest pressure. She states she has had episodes through the past week that comes and goes. She's been taking all her medications as directed. She continues to have nausea now as well as diarrhea. Patient quit smoking 35 years ago. EKG #1 sinus tachycardia 106 bpm. EKG #2 sinus rhythm at 87 bpm Chest x-ray reveals no acute cardiopulmonary disease CBC unremarkable. Potassium 4.4, BUN 15 creatinine 0.8. Troponin negative 3. AST 63, ALT 38. Influenza A and influenza B not detected. Blood sugar 217. Echocardiogram 08/2019 revealed EF of 55-60%, mild concentric left ventricular hypertrophy. Mild tricuspid regurgitation, no pulmonary hypertension. REVIEW OF SYSTEMS Constitutional: No fever, no chills. No weakness, fatigue or lethargy. EENT: No headache. No dizziness. Lungs: No shortness of breath, cough, no sputum production. No wheezing. Cardiovascular: No chest pain, no lower extremity edema. No palpitations. No paroxysmal nocturnal dyspnea. No orthopnea. No lightheadedness or dizziness. No syncopal episodes. Abdominal: No abdominal pain. No nausea, vomiting. No diarrhea. No constipati on. No bloody or tarry stools. No loss of appetite. Genitourinary: No dysuria.. No urinary retention. Musculoskeletal: No myalgias. No muscle weakness, no gait dysfunction, no frequent falls. No back pain. No neck pain. Integumentary: No wounds, no lesions. No rash or pruritus. No unusual br uising. Neurologic: No aphasia. No facial droop. No change in mentation. No head injury. No headache. No paralysis. No paresthesia. Psychiatric: No depression. No anxiety. Endocrine: No abnormal blood sugars. PHYSICAL EXAMINATION Gen: This is a 62-year-old female. She is resting in bed and appears to be comfortable and in no acute distress VS: reviewed HEENT: Head is atraumatic, normocephalic. Pupils equal, round. Sclerae is anicteric. NECK: Supple. No JVD. No lymphadenopathy. No thyromegaly. LUNGS: Clear to auscultation. No wheezes or rhonchi. No intercostal retractions. HEART: Regular rate and rhythm. No murmur. ABDOMEN: Soft. Bowel sounds are present. No masses. No tenderness. EXTREMITIES: No pedal edema. No calf tenderness. NEUROLOGICAL: Patient is awake, alert and oriented x3. Cranial nerves 2 through 12 are grossly intact. ASSESSMENT Chest pain preceded by nausea and vomiting, acute coronary syndrome ruled out History of coronary vasospasm Hypothyroidism Tobacco use and dependence PLAN Agree with continuing patient on Cardizem CD 120 mg daily Obtain TSH and free T4 Obtain 2-D echocardiogram and Doppler study to assess cardiac structure and function Hydrate patient and ambulate Patient is cleared from cardiology for discharge home with plan to follow up with Dr. Mari the next week for outpatient stress testing Thank you kindly for this consultation. Nurse practitioner note has been reviewed, I agree with documented findings and plan of care. Patient was seen and examined. Past Medical History Past Medical History: Coronary Artery Disease (CAD), Diabetes Mellitus, Sleep Apnea/CPAP/BIPAP, Thyroid Disorder Additional Past Medical History / Comment(s): coronary artery spasms History of Any Multi-Drug Resistant Organisms: None Reported Past Surgical History: Cholecystectomy, Hysterectomy, Joint Replacement Additional Past Surgical History / Comment(s): left knee replacement Past Anesthesia/Blood Transfusion Reactions: Family History of Problems w/ Anesthesia Additional Past Anesthesia/Blood Transfusion Reaction / Comment(s): sister has diff coming out Past Psychological History: No Psychological Hx Reported Smoking Status: Former smoker Past Alcohol Use History: None Reported Past Drug Use History: None Reported - Past Family History Sister(s) Family Medical History: Cancer, Deep Vein Thrombosis (DVT) Medications and Allergies Home Medications Medication Instructions Recorded Confirmed Type Diltiazem Cd [Cardizem CD] 120 mg PO DAILY #30 cap.er.24h 09/10/19 07/26/22 Rx Levothyroxine Sodium [Synthroid] 175 mcg PO DAILY 02/02/20 07/26/22 History Allergies Allergy/AdvReac Type Severity Reaction Status Date / Time No Known Allergies Allergy Verified 07/26/22 21:32 Physical Exam Vitals: Vital Signs Temp Pulse Pulse Resp BP BP Pulse Ox 07/27/22 02:41 100 17 07/27/22 00:46 100.0 F H 100 17 108/67 97 07/26/22 23:00 108 H 16 125/69 95 07/26/22 22:00 101 H 16 122/75 94 L 07/26/22 21:37 103 H 16 116/84 88 L 07/26/22 20:34 98 F 119 H 16 126/75 93 L Intake and Output 07/26/22 07/27/22 07/27/22 22:59 06:59 14:59 Other: Voiding Method Toilet # Voids 1 Weight 111.13 kg 111.13 kg Results 07/27/22 03:29 07/27/22 03:29 Cardiac Enzymes 07/26/22 07/26/22 07/27/22 Range/Units 21:26 21:26 03:29 AST 63 H (14-36) U/L Troponin I <0.012 <0.012 (0.000-0.034) ng/mL 07/27/22 Range/Units 05:46 AST (14-36) U/L Troponin I <0.012 (0.000-0.034) ng/mL CBC 07/26/22 07/27/22 Range/Units 21:26 03:29 WBC 5.8 5.3 (3.8-10.6) k/uL RBC 4.54 4.40 (3.80-5.40) m/uL Hgb 15.1 14.8 (11.4-16.0) gm/dL Hct 42.5 41.5 (34.0-46.0) % Plt Count 185 188 (150-450) k/uL Comprehensive Metabolic Panel 07/26/22 07/27/22 Range/Units 21:26 03:29 Sodium 137 138 (137-145) mmol/L Potassium 4.4 4.5 (3.5-5.1) mmol/L Chloride 104 105 (98-107) mmol/L Carbon Dioxide 23 26 (22-30) mmol/L BUN 15 15 (7-17) mg/dL Creatinine 0.81 0.86 (0.52-1.04) mg/dL Glucose 217 H 175 H (74-99) mg/dL Calcium 8.8 8.4 (8.4-10.2) mg/dL AST 63 H (14-36) U/L ALT 38 H (4-34) U/L Alkaline Phosphatase 110 (38-126) U/L Total Protein 7.6 (6.3-8.2) g/dL Albumin 4.3 (3.5-5.0) g/dL Current Medications Generic Name Dose Route Start Last Admin Trade Name Freq PRN Reason Stop Dose Admin Diltiazem HCl 120 mg 07/27/22 09:00 Diltiazem Cd 120 Mg Cap.Er.24h PO DAILY [facility] Sodium Chloride 1,000 mls @ 130 mls/hr 07/26/22 23:15 07/27/22 07:48 Saline 0.9% IV Not Given .[id number] [facility] Levothyroxine Sodium 76 mcg 07/27/22 06:30 07/27/22 05:51 Levothyroxine 88 Mcg Tab PO 76 mcg DAILY@0630 BENEDICT Administration Naloxone HCl 0.2 mg 07/26/22 23:10 Naloxone 0.4 Mg/Ml 1 Ml Vial IV Q2M PRN Opioid Reversal Ondansetron HCl 4 mg 07/26/22 23:10 Ondansetron 4 Mg/2 Ml Vial IVP Q8HR PRN Nausea And Vomiting Intake and Output 07/26/22 07/27/22 07/27/22 22:59 06:59 14:59 Other: Voiding Method Toilet # Voids 1 Weight 111.13 kg 111.13 kg 07/27/22 03:29 07/27/22 03:29
--- NOTE | 2022-07-27 14:20 | P.HPIM ---
History of Present Illness H&P Date: 07/27/22 This is a 62-year-old female who presented to the emergency department last night with symptoms reporting chest pain and patient reports she woke up having nausea and vomiting and denies any new recent sick contacts or new foods. Patient had several episodes of nausea with vomiting and then started having diarrhea. Patient reports she started having some chest pain after that and has been taking her Cardizem as scheduled. Patient with a past medical history of coronary disease, diabetes mellitus, sleep apnea uses a CPAP, hypothyroidism follows with Dr. White in the outpatient setting. Patient was admitted with chest pain with cardiology on consult. Labs reviewed with a WBC of 5.8, he moglobin 15.1, platelets are 185, sodium 137, potassium 4.4, creatinine 0.81, blood sugar mildly elevated at 217, magnesium was 1.6, liver functions mildly elevated troponins 3 have been negative. Lipase was 132. TSH was found to be elevated at 51.5 and free T4 is low at 0.66. Patient normally takes 175 g daily of levothyroxine and will need increased. Patient also was tested for influenza which was negative. Cardiology evaluated the patient this morning and currently awaiting a 2-D echo. Patient has been cleared by cardiology for follow-up for outpatient stress testing. Review Of Systems: Constitutional: No fever, no chills, no night sweats. No weight change. Reports generalized weakness, reports fatigue or lethargy. No daytime sleepiness. EENT: No headache. No blurred vision or double vision, no loss of vision. No loss of Hearing, no ringing in the ears, no dizziness. No nasal drainage or congestion. No epistaxis. No sore throat. Lungs: No shortness of breath, cough, no sputum production. No wheezing. Cardiovascular: Reports chest pain as night that has resolved, no lower extremity edema. No palpitations. No paroxysmal nocturnal dyspnea. No orthopnea. No lightheadedness or dizziness. No syncopal episodes. Abdominal: Reports mild abdominal pain. Reports nausea, reports 2 episodes of vomiting. Reports diarrhea. No constipation. Denies bloody or tarry stools.. No loss of appetite. Genitourinary: No dysuria, increased frequency, urgency. No urinary retention. Musculoskeletal: No myalgias. No muscle weakness, no gait dysfunction, no frequent falls. No back pain. No neck pain. Integumentary: No wounds, no lesions. No rash or pruritus. No unusual bruising. No change in hair or nails. Neurologic: No aphasia. No facial droop. No change in mentation. No head injury. No headache. No paralysis. No paresthesia. Psychiatric: No depression. No anxiety. No mood swings. Endocrine: No abnormal blood sugars. No weight change. No excessive sweating or thirst. No cold intolerance. PHYSICAL EXAMINATION: GENERAL: The patient is alert and oriented x4, Well developed, well nourished. Morbidly obese HEENT: Pupils are round and equally reacting to light. EOMI. no scleral icterus. No conjunctival pallor. Normocephalic, atraumatic. No pharyngeal erythema. No thyromegaly. CARDIOVASCULAR: S1 and S2 muffled PULMONARY: diminished breath sounds bilaterally with no wheezing or rhonchi noted. ABDOMEN: soft. Nontender on exam. obese. non-distended, normoactive bowel sounds. No palpable organomegaly. MUSCULOSKELETAL: No joint swelling or deformity. EXTREMITIES: No cyanosis, clubbing, or pedal edema. NEUROLOGICAL: Gross neurological examination did not reveal any focal deficits. SKIN: No rashes. Assessment: Nausea/vomiting/diarrhea possible acute gastritis Chest pain after vomiting, ACS ruled out History of coronary artery disease History of hypothyroidism History of diabetes mellitus Former smoker GI prophylaxis DVT prophylaxis Full code Plan: Recommend to continue with current medications and management and cardiology has been consulted. Cardiology evaluating the patient recommending a 2-D echo and has been cleared by cardiology once echo is done for outpatient follow-up to discuss stress testing in the outpatient setting Recommend continue telemetry monitoring Troponins 3 were negative, ACS ruled out Encourage fluids and rest and bland diet while increasing oral intake as tolerated Recommend to monitor for fevers and treat with Tylenol and/or Motrin TSH elevated and T4 free was low and will increase to 200 g daily recommend outpatient follow-up in the next few weeks for repeat testing. Patient had 2-D echo done and is pending at this time Patient will be discharged this afternoon The impression and plan of care has been dictated by Katia Chávez, nurse practitioner as directed. Dr. Elizabeth MD I have performed a history and examination and MDM of this patient, discussed the same with the dictator, and agree with the dictator's assessment and plan as written ,documented as a scribe. Based on total visit time, I have performed more than 50% of the visit. Any additional findings or plans will be noted. Past Medical History Past Medical History: Coronary Artery Disease (CAD), Diabetes Mellitus, Sleep Apnea/CPAP/BIPAP, Thyroid Disorder Additional Past Medical History / Comment(s): coronary artery spasms History of Any Multi-Drug Resistant Organisms: None Reported Past Surgical History: Cholecystectomy, Hysterectomy, Joint Replacement Additional Past Surgical History / Comment(s): left knee replacement Past Anesthesia/Blood Transfusion Reactions: Family History of Problems w/ Anesthesia Additional Past Anesthesia/Blood Transfusion Reaction / Comment(s): sister has diff coming out Past Psychological History: No Psychological Hx Reported Smoking Status: Former smoker Past Alcohol Use History: None Reported Past Drug Use History: None Reported - Past Family History Sister(s) Family Medical History: Cancer, Deep Vein Thrombosis (DVT) Medications and Allergies Home Medications Medication Instructions Recorded Confirmed Type Diltiazem Cd [Cardizem CD] 120 mg PO DAILY #30 cap.er.24h 09/10/19 07/26/22 Rx Levothyroxine Sodium [Synthroid] 200 mcg PO DAILY@0630 30 Days #60 07/27/22 Rx tab Allergies Allergy/AdvReac Type Severity Reaction Status Date / Time No Known Allergies Allergy Verified 07/26/22 21:32 Physical Exam Vitals: Vital Signs Temp Pulse Pulse Resp BP BP Pulse Ox 07/27/22 07:00 99.0 F 90 20 110/64 94 L 07/27/22 02:41 100 17 07/27/22 00:46 100.0 F H 100 17 108/67 97 07/26/22 23:00 108 H 16 125/69 95 07/26/22 22:00 101 H 16 122/75 94 L 07/26/22 21:37 103 H 16 116/84 88 L 07/26/22 20:34 98 F 119 H 16 126/75 93 L Intake and Output 07/26/22 07/27/22 07/27/22 22:59 06:59 14:59 Intake Total 118 Balance 118 Intake: Oral 118 Other: Voiding Method Toilet Toilet # Voids 1 Weight 111.13 kg 111.13 kg Results CBC & Chem 7: 07/27/22 03:29 07/27/22 03:29 Labs: Abnormal Lab Results - Last 24 Hours (Table) 07/26/22 07/26/22 07/27/22 Range/Units 21:26 21:26 03:00 Lymphocytes # 0.3 L (1.0-4.8) k/uL Glucose 217 H (74-99) mg/dL AST 63 H (14-36) U/L ALT 38 H (4-34) U/L TSH (0.465-4.680) mIU/L Free T4 (0.78-2.19) ng/dL Urine Appearance Cloudy H (Clear) Urine Protein 1+ H (Negative) Urine Glucose (UA) 1+ H (Negative) Ur Leukocyte Esterase Small H (Negative) Urine WBC 11 H (0-5) /hpf Ur Squamous Epith Cells 6 H (0-4) /hpf Urine Bacteria Rare H (None) /hpf Urine Mucus Occasional H (None) /hpf 07/27/22 07/27/22 07/27/22 Range/Units 03:29 03:29 03:29 Lymphocytes # 0.5 L (1.0-4.8) k/uL Glucose 175 H (74-99) mg/dL AST (14-36) U/L ALT (4-34) U/L TSH 51.500 H (0.465-4.680) mIU/L Free T4 0.66 L (0.78-2.19) ng/dL Urine Appearance (Clear) Urine Protein (Negative) Urine Glucose (UA) (Negative) Ur Leukocyte Esterase (Negative) Urine WBC (0-5) /hpf Ur Squamous Epith Cells (0-4) /hpf Urine Bacteria (None) /hpf Urine Mucus (None) /hpf Microbiology - Last 24 Hours (Table) 07/27/22 03:00 Urine Culture - Preliminary Urine,Voided Thrombosis Risk Factor Assmnt - Choose All That Apply Any of the Below Risk Factors Present?: Yes Each Factor Represents 1 point: Obesity (BMI >25) Other Risk Factors: Yes Each Risk Factor Represents 2 Points: Age 61-74 years Other congenital or acquired thrombophilia - If yes, enter type in comment: No Thrombosis Risk Factor Assessment Total Risk Factor Score: 3 Thrombosis Risk Factor Assessment Level: Moderate Risk Assessment and Plan Time with Patient: Greater than 30
[2022-07-27] MEDS ORDERED: LOPERAMIDE 2 MG CAP PO STA (17:43)
[2022-07-27] MEDS: CHOLESTYRAMINE (WITH SUGAR) 4 GM PACKET PO SCH (18:17)
[2022-07-27] MEDS ORDERED: LOPERAMIDE 2 MG CAP PO PRN (22:00)
[2022-07-28 00:42] VITALS: RESP 18
[2022-07-28 03:46] VITALS: TEMP 98.3
[2022-07-28] MEDS ORDERED: LEVOTHYROXINE 100 MCG TAB PO SCH (06:30)
--- NOTE | 2022-07-28 07:55 | CA ---
Transthoracic Echo Report Name: Ethel Oneill Age: 62 Gender: F : 1960 Exam Date: 07/27/2022 11:22 Exam Location: [facility] Ht (in): 62 Wt (lb): 245 Ordering Physician: Luly Brennan Attending/Referring Phys: [id number], Mika Soc Analyst Coretta Baumann RDCS Procedure CPT: Indications: LVF Cardiac Hx: Technical Quality: Fair Contrast 1: Total Dose (mL): Contrast 2: Total Dose (mL): MEASUREMENTS (Male / Female) Normal Values 2D ECHO LV Diastolic Diameter PLAX 3.6 cm 4.2 - 5.9 / 3.9 - 5.3 cm LV Systolic Diameter PLAX 2.1 cm IVS Diastolic Thickness 1.4 cm 0.6 - 1.0 / 0.6 - 0.9 cm LVPW Diastolic Thickness 1.2 cm 0.6 - 1.0 / 0.6 - 0.9 cm LV Relative Wall Thickness 0.7 RV Internal Dim ED PLAX 3.9 cm LA Volume 26.0 cm??? 18 - 58 / 22 - 52 cm??? M-MODE Aortic Root Diameter MM 3.1 cm LA Systolic Diameter MM 4.4 cm LA Ao Ratio MM 1.4 AV Cusp Separation MM 1.8 cm DOPPLER AV Peak Velocity 165.2 cm/s AV Peak Gradient 10.9 mmHg AV Mean Velocity 127.1 cm/s AV Mean Gradient 7.0 mmHg AV Velocity Time Integral 33.9 cm LVOT Peak Velocity 116.4 cm/s LVOT Peak Gradient 5.4 mmHg LVOT Velocity Time Integral 21.2 cm MV Area PHT 2.3 cm??? Mitral E Point Velocity 83.2 cm/s Mitral A Point Velocity 109.6 cm/s Mitral E to A Ratio 0.8 MV Deceleration Time 333.9 ms FINDINGS Left Ventricle Moderately increased left ventricular wall thickness. Normal left ventricular systolic function with no obvious regional wall motion abnormalities. Left ventricular ejection fraction is estimated at 55-60 %. Right Ventricle Mild right ventricular dilatation. Right Atrium Normal right atrial size. Left Atrium Normal left atrial size. Mitral Valve Structurally normal mitral valve. Trace mitral regurgitation. Aortic Valve No aortic valve stenosis or regurgitation. Tricuspid Valve Structurally normal tricuspid valve. Mild tricuspid regurgitation. Pulmonic Valve Trace pulmonic regurgitation. Pericardium No pericardial effusion. Aorta Normal size aortic root and proximal ascending aorta. CONCLUSIONS Normal LV size and systolic function with [id number] concentric LVH. Mild mitral and tricuspid insufficiency. No significant pulmonary hypertension. No pericardial effusion Previewed by: Dr. Jimmy Desai MD (Electronically Signed) Final Date: 28 July 2022 07:54
[2022-07-28 08:12] VITALS: BP 121/71; PULSE 61
[2022-07-28] MEDS: DILTIAZEM CD 120 MG CAP.ER.24H PO SCH (08:18)
[2022-07-28] MEDS: CHOLESTYRAMINE (WITH SUGAR) 4 GM PACKET PO SCH (08:18)
--- NOTE | 2022-07-28 11:39 | P.PN ---
Subjective Progress Note Date: 07/28/22 HISTORY OF PRESENT ILLNESS This is a 62-year-old female with past history of diabetes mellitus, hypothyroi dism, coronary vasospasm based on a normal heart catheterization performed in 2018 at [facility] for which she is on Cardizem, remote history of tobacco use and dependence. Patient has not been seen in cardiology office since February [address] Mari. Patient presented to the emergency center due to nausea, vomiting, diarrhea and generalized abdominal pain and patient subsequently developed chest pressure. She states she has had episodes through the past week that comes and goes. She's been taking all her medications as directed. She continues to have nausea now as well as diarrhea. Patient quit smoking 35 years ago. EKG #1 sinus tachycardia 106 bpm. EKG #2 sinus rhythm at 87 bpm Chest x-ray reveals no acute cardiopulmonary disease CBC unremarkable. Potassium 4.4, BUN 15 creatinine 0.8. Troponin negative 3. AST 63, ALT 38. Influenza A and influenza B not detected. Blood sugar 217. Echocardiogram 08/2019 revealed EF of 55-60%, mild concentric left ventricular hypertrophy. Mild tricuspid regurgitation, no pulmonary hypertension. 07/28 No new concerns from the patient. Noted that TSH is elevated and patient admits that she does not take it as that she will do. Recommended to the patient that she take it as scheduled for at least 4 weeks and have a follow-up TSH and free T4 with her PCP. No stress testing will be done until TSH is controlled. Echocardiogram reveals EF 55-60%, mild to moderate concentric left hypertrophy. Mild mitral and tricuspid insufficiency. No significant pulmonary hypertension. Heart rate is in the 60s sinus rhythm, blood pressure 121/71, pulse ox 90% on room air. TSH 51.5, free T4 0.66. PHYSICAL EXAMINATION Gen: This is a 62-year-old female. She is resting in bed and appears to be comfortable and in no acute distress VS: reviewed HEENT: Head is atraumatic, normocephalic. Pupils equal, round. Sclerae is anicteric. NECK: Supple. No JVD. No lymphadenopathy. No thyromegaly. LUNGS: Clear to auscultation. No wheezes or rhonchi. No intercostal retractions. HEART: Regular rate and rhythm. No murmur. ABDOMEN: Soft. Bowel sounds are present. No masses. No tenderness. EXTREMITIES: No pedal edema. No calf tenderness. NEUROLOGICAL: Patient is awake, alert and oriented x3. Cranial nerves 2 through 12 are grossly intact. ASSESSMENT Chest pain preceded by nausea and vomiting, acute coronary syndrome ruled out History of coronary vasospasm Hypothyroidism with significantly elevated TSH Tobacco use and dependence PLAN Continue patient on Cardizem CD 120 mg daily PCP to follow up on TSH level Patient is cleared from cardiology for discharge home with plan to follow up with Dr. Mari in 4 weeks for stress testing. Thank you kindly for this consultation. Nurse practitioner note has been reviewed, I agree with documented findings and plan of care. Patient was seen and examined. Objective - Vital Signs Vital signs: Vital Signs Temp 98.3 F 07/28/22 07:00 Pulse 61 07/28/22 07:00 Resp 18 07/28/22 07:00 BP 121/71 07/28/22 07:00 Pulse Ox 98 07/28/22 07:00 FiO2 Intake & Output 07/27/22 07/28/22 07/28/22 18:59 06:59 18:59 Intake Total 118 Balance 118 Intake: Oral 118 Other: Voiding Method Toilet Toilet # Voids 2 2 # Bowel Movements 3 0 - Labs CBC & Chem 7: 07/27/22 03:29 07/27/22 03:29 Labs: Abnormal Lab Results - Last 24 Hours (Table) 07/27/22 Range/Units 03:29 TSH 51.500 H (0.465-4.680) mIU/L Free T4 0.66 L (0.78-2.19) ng/dL Microbiology - Last 24 Hours (Table) 07/27/22 03:00 Urine Culture - Preliminary Urine,Voided
--- NOTE | 2022-07-28 20:08 | P.DS ---
Providers Date of admission: 07/26/22 23:10 Expected date of discharge: 07/28/22 Attending physician: Elizabet Johnson Consults: 07/26/22 23:10 Consult Physician Urgent Consulting Provider: [facility] Consult Reason/Comments: acute chest pain, hx coronary vasospasm Do you want consulting provider notified?: Yes Primary care physician: Jani White Hospital Course: Final diagnosis Nausea/vomiting/diarrhea possible acute gastritis, C. diff ruled out Chest pain after vomiting, ACS ruled out History of coronary artery disease History of hypothyroidism History of diabetes mellitus Former smoker GI prophylaxis DVT prophylaxis Full code Discharge disposition Patient is being discharged in a stable condition with guarded prognosis to home . Patient will follow-up with Dr. White in the outpatient setting upon discharge. Patient is to follow up with cardiology as scheduled. Total time taken is greater than 35 minutes. Hospital course This is a 62-year-old female who was recently admitted with some chest pain status post nausea and vomiting. Patient was seen and evaluated by cardiology underwent 2-D echo which shows an EF of 55-60% and recommended outpatient follow-up with possible stress testing in the outpatient setting. Patient was tested for C. diff as patient had multiple episodes of diarrhea and was negative and is showing some improvement. Recommend continue bland diet and slowly increase diet as tolerated. Patient to follow-up with primary care provider on discharge as well. Reports to feeling much better and would like to go home. C urrently no reports of chest pain, shortness of breath, or palpitations. Patient is afebrile. No reports of nausea or vomiting and patient is tolerating diet. Patient will be discharged today. Physical exam: Gen: This is a 62-year-old female who is awake, alert and oriented 3, well- developed, well-nourished, morbidly obese HEENT: Head is atraumatic, normocephalic. Pupils equal, round. Sclerae is anicteric. NECK: Supple. No JVD. No lymphadenopathy. No thyromegaly. LUNGS: Clear to auscultation. No wheezes or rhonchi. No intercostal retractions. HEART: Regular rate and rhythm. No murmur. ABDOMEN: Soft. Bowel sounds are present. No masses. No tenderness. EXTREMITIES: No pedal edema. No calf tenderness. NEUROLOGICAL: Patient is awake, alert and oriented x3. Cranial nerves 2 through 12 are grossly intact. Please refer to medication reconciliation sheet for a list of medications. The impression and plan of care has been dictated by Katia Chávez, Nurse Practitioner as directed. Dr. Elizabeth MD I have performed a history and examination and MDM of this patient, discussed the same with the dictator, and agree with the dictator's assessment and plan as written ,documented as a scribe. Based on total visit time, I have performed more than 50% of the visit. Patient Condition at Discharge: Stable Plan - Discharge Summary Discharge Rx Participant: No New Discharge Prescriptions: New Levothyroxine Sodium [Synthroid] 200 mcg PO DAILY@0630 30 Days #60 tab Continue Diltiazem Cd [Cardizem CD] 120 mg PO DAILY #30 cap.er.24h Discontinued Levothyroxine Sodium [Synthroid] 175 mcg PO DAILY Discharge Medication List Diltiazem Cd [Cardizem CD] 120 mg PO DAILY #30 cap.er.24h 09/10/19 [Rx] Levothyroxine Sodium [Synthroid] 200 mcg PO DAILY@0630 30 Days #60 tab 07/27/22 [Rx] Follow up Appointment(s)/Referral(s): Jani White MD [Primary Care Provider] - 1-2 days Harrison Mari MD [STAFF PHYSICIAN] - 08/11/22 3:15 pm (Appointment made at the [facility] office ) Activity/Diet/Wound Care/Special Instructions: Activity Limited until follow-up Follow-up with primary care provider on discharge Continue taking medications as prescribed and discuss increase in levothyroxine dose due to elevated TSH and low T4 Follow-up cardiology outpatient to discuss outpatient stress testing Continue heart healthy diet Encourage fluids and rest Monitor for any fevers and treat with Tylenol and/or Motrin Continue with small frequent meals and bland diet until feeling better Discharge Disposition: HOME SELF-CARE
== END 2022-07-28 12:21 | disposition home or self-care (01) ==
LOC: EC 19:54 → 6NMEDSUR 23:10
PROVIDERS: ADMIT Hospitalist; ATTEND Hospitalist
DX: R07.89 Other chest pain (principal); I25.111 Atherosclerotic heart disease of native coronary artery with angina pectoris with documented spasm; R11.2 Nausea with vomiting, unspecified; R19.7 Diarrhea, unspecified; E11.9 Type 2 diabetes mellitus without complications; I08.1 Rheumatic disorders of both mitral and tricuspid valves; E03.9 Hypothyroidism, unspecified; R00.0 Tachycardia, unspecified; R10.84 Generalized abdominal pain; G47.30 Sleep apnea, unspecified; E66.01 Morbid (severe) obesity due to excess calories; Z68.41 Body mass index [BMI] 40.0-44.9, adult; Z79.890 Hormone replacement therapy; Z79.899 Other long term (current) drug therapy; Z90.49 Acquired absence of other specified parts of digestive tract; Z90.710 Acquired absence of both cervix and uterus; Z96.652 Presence of left artificial knee joint; Z87.891 Personal history of nicotine dependence; Z84.89 Family history of other specified conditions; Z82.49 Family history of ischemic heart disease and other diseases of the circulatory system; Z80.9 Family history of malignant neoplasm, unspecified
CPT/HCPCS: 96361 ×2; 96360; 99285; 36415; 93306; 84439; 80053; 80048; 84443; 83690; 83735; 84484 ×2; 85025 ×2; 81001; 87324; 87086; 87502; 71046; G0378 ×3

== ENCOUNTER → 2023-08-31 | Outpatient (CLI) | payer MEDICARE ==
--- NOTE | 2023-09-01 14:55 | MM ---
Reason for Exam: Screening (asymptomatic). Last mammogram was performed 1 year(s) and 10 month(s) ago. Patient History: Menarche at age 12. First Full-Term at age 17. Left ovary removed at age 38. Right ovary removed at age 38. Hysterectomy at age 38. Postmenopausal. 1991, Benign Excisional Biopsy on the left side. Sister had breast cancer, age 41. Risk Values: Misti 5 year model risk: 3.3%. NCI Lifetime model risk: 12.2%. Prior Study Comparison: 11/04/2021 Bilateral Screening Mammogram, [facility]. Tissue Density: There are scattered fibroglandular densities. Findings: Analyzed By CAD. There is no suspicious group of microcalcifications or new suspicious mass. Benign-appearing calcifications bilaterally. Overall Assessment: Benign, BI-RAD 2 Management: Screening Mammogram of both breasts in [address] [facility] will attempt to contact patient to return for supplemental views and ultrasound if indicated. Patient should continue monthly self-breast exams. A clinical breast exam by your physician is recommended on an annual basis. This exam should not preclude additional follow-up of suspicious palpable abnormalities. Note on Misti scores and lifetime risk: 1. A Misti score greater than 3% is considered moderate risk. If this is the case, consider specialist referral to assess eligibility for a risk reducing agent. 2. If overall lifetime risk for the development of breast cancer is 20% or higher, the patient may qualify for future screening with alternating mammogram and breast MRI. Electronically signed and approved by: Deonte oGnzales DO
== END | disposition home or self-care (01) ==
LOC: RADMAMWWP 16:19
PROVIDERS: ATTEND Family Medicine
DX: Z12.31 Encounter for screening mammogram for malignant neoplasm of breast (principal); Z78.0 Asymptomatic menopausal state; Z80.3 Family history of malignant neoplasm of breast
CPT/HCPCS: 77063; 77067

== ENCOUNTER 2024-06-01 21:49 | Emergency (ER) | payer MEDICARE ==
--- NOTE | 2024-06-01 22:02 | ED ---
Recheck HPI - General Chief Complaint: Wound/Laceration Stated Complaint: R foot toe pain Time Seen by Provider: 06/01/24 21:56 Source: patient, RN notes reviewed, old records reviewed Mode of arrival: wheelchair Limitations: no limitations - History of Present Illness Initial Comments: This is a 64-year-old female to the ER for evaluation of right great toe pain. Patient does have evidence of paronychia that has drained purulence and she did witness some drainage from the great toe and has significant surrounding redness and inflammation currently. Patient is been on antibiotics for 1 day with no real significant improvement concern for worsening infection with underlying diabetes. MD Complaint: wound re-check, other (Right great toe pain) -: days(s) (2) Returns Today for: wound recheck, other (Concern of need for IV antibiotics secondary to diabetes) Symptoms Since Prior Visit: worsening swelling, worsening redness Associated Symptoms: none Treatments Prior to Arrival: Given Antibiotics on - Related Data Previous Rx's Medication Instructions Recorded Diltiazem Cd [Cardizem CD] 120 mg PO DAILY #30 cap.er.24h 09/10/19 Levothyroxine Sodium [Synthroid] 200 mcg PO DAILY@0630 30 Days #60 07/27/22 tab Sulfamethox-Tmp 800-160Mg [Bactrim 2 tab PO BID #40 tab 06/01/24 DS 800-160 mg] Allergies Allergy/AdvReac Type Severity Reaction Status Date / Time No Known Allergies Allergy Verified 06/01/24 21:51 Review of Systems ROS Statement: Those systems with pertinent positive or pertinent negative responses have been documented in the HPI. ROS Other: All systems not noted in ROS Statement are negative. Past Medical History Past Medical History: Coronary Artery Disease (CAD), Diabetes Mellitus, Sleep Apnea/CPAP/BIPAP, Thyroid Disorder Additional Past Medical History / Comment(s): coronary artery spasms History of Any Multi-Drug Resistant Organisms: None Reported Past Surgical History: Cholecystectomy, Hysterectomy, Joint Replacement Additional Past Surgical History / Comment(s): left knee replacement Past Anesthesia/Blood Transfusion Reactions: Family History of Problems w/ Anesthesia Additional Past Anesthesia/Blood Transfusion Reaction / Comment(s): sister has diff coming out Past Psychological History: No Psychological Hx Reported Smoking Status: Former smoker Past Alcohol Use History: None Reported Past Drug Use History: None Reported - Past Family History Sister(s) Family Medical History: Cancer, Deep Vein Thrombosis (DVT) General Exam Limitations: no limitations General appearance: alert, in no apparent distress Head exam: Present: atraumatic, normocephalic, normal inspection Eye exam: Present: normal appearance, PERRL, EOMI. Absent: scleral icterus, conjunctival injection, periorbital swelling ENT exam: Present: normal exam, mucous membranes moist Neck exam: Present: normal inspection. Absent: tenderness, meningismus, lymphadenopathy Respiratory exam: Present: normal lung sounds bilaterally. Absent: respiratory distress, wheezes, rales, rhonchi, stridor Cardiovascular Exam: Present: regular rate, normal rhythm, normal heart sounds. Absent: systolic murmur, diastolic murmur, rubs, gallop, clicks GI/Abdominal exam: Present: soft, normal bowel sounds. Absent: distended, tenderness, guarding, rebound, rigid Extremities exam: Present: normal inspection, full ROM, normal capillary refill. Absent: tenderness, pedal edema, joint swelling, calf tenderness Back exam: Present: normal inspection Neurological exam: Present: alert, oriented X3, CN II-XII intact Psychiatric exam: Present: normal affect, normal mood Skin exam: Present: warm, dry, intact, normal color. Absent: rash Course Vital Signs 06/01/24 21:51 Temperature 98.1 F Pulse Rate 72 Respiratory 18 Rate Blood Pressure 161/94 O2 Sat by Pulse 98 Oximetry - Reevaluation(s) Reevaluation #1: 06/01/24 22:02 Medical records reviewed Reevaluation #2: 06/01/24 22:12 Patient symptoms relatively unchanged Reevaluation #3: 06/01/24 22:12 Patient informed of results questions answered Reevaluation #4: Was pt. sent in by a medical professional or institution (, PA, CONTRACT ACCOUNTANT, urgent care, hospital, or correction...) When possible be specific @ -no Did you speak to anyone other than the patient for history (EMS, parent, family, police, friend...)? What history was obtained from this source @ -no Did you review nursing and triage notes (agree or disagree)? Why? @ -agree Are old charts reviewed (outside hosp., previous admission, EMS record, old EKG, old radiological studies, urgent care reports/EKG's, correction records)? Report findings @ -yes Differential Diagnosis (chest pain, altered mental status, abdominal pain women, abdominal pain men, vaginal bleeding, weakness, fever, dyspnea, syncope, headache, dizziness, GI bleed, back pain, seizure, CVA, palpatations, mental health, musculoskeletal)? @ -prior EKG interpreted by me (3pts min.). @ -yes X-rays interpreted by me (1pt min.). @ -yes negative for acute disease CT interpreted by me (1pt min.). @ -no U/S interpreted by me (1pt. min.). @ -no What testing was considered but not performed or refused? (CT, X-rays, U/S, labs)? Why? @ -none What meds were considered but not given or refused? Why? @ -none Did you discuss the management of the patient with other professionals (professionals i.e. , PA, CONTRACT ACCOUNTANT, lab, RT, psych nurse, forensic social worker, skoog patching machine operator, teacher, cra officer, business case analyst)? Give summary @ -no Was smoking cessation discussed for >3mins.? @ -no Was critical care preformed (if so, how long)? @ -no Were there social determinants of health that impacted care today? How? (Homelessness, low income, unemployed, alcoholism, drug addiction, transportation, low edu. Level, literacy, decrease access to med. care, residential, rehab)? @ -none Was there de-escalation of care discussed even if they declined (Discuss DNR or withdrawal of care, Hospice)? DNR status @ -no What co-morbidities impacted this encounter? (DM, HTN, Smoking, COPD, CAD, Cancer, CVA, ARF, Chemo, Hep., AIDS, mental health diagnosis, sleep apnea, morbid obesity)? @ -none Was patient admitted / discharged? Hospital course, mention meds given and route, prescriptions, significant lab abnormalities, going to OR and other pertinent info. @ - Undiagnosed new problem with uncertain prognosis? @ -no Drug Therapy requiring intensive monitoring for toxicity (Heparin, Nitro, Insulin, Cardizem)? @ -no Were any procedures done? @ -no Diagnosis/symptom? @ - Acute, or Chronic, or Acute on Chronic? @ -Acute Uncomplicated (without systemic symptoms) or Complicated (systemic symptoms)? @ -Complicated Side effects of treatment? @ -no Exacerbation, Progression, or Severe Exacerbation? @ -exacerbation Poses a threat to life or bodily function? How? (Chest pain, USA, MD, pneumonia, PE, COPD, DKA, ARF, appy, cholecystitis, CVA, Diverticulitis, Homicidal, Suicidal, threat to staff... and all critical care pts) @ -yes Medical Decision Making - Medical Decision Making 64 female for right great toe paronychia with surrounding cellulitis, suspect symptoms will continue to improve as long as she continues to take antibiotics and do c warm soaks, patient has had purulent drainage there is not appear to be significant abscess currently - Radiology Data Radiology results: report reviewed (X-ray right foot negative for acute disease), image reviewed Disposition Clinical Impression: Cellulitis of great toe, right, Paronychia of toe of right foot Disposition: HOME SELF-CARE Condition: Good Instructions (If sedation given, give patient instructions): Cellulitis (ED), Paronychia (ED) Prescriptions: Sulfamethox-Tmp 800-160Mg [Bactrim DS 800-160 mg] 2 tab PO BID #40 tab Is patient prescribed a controlled substance at d/c from ED?: No Referrals: Jani White MD [Primary Care Provider] - 1-2 days Time of Disposition: 22:30
[2024-06-01] MEDS: SULFAMETH-TMP DS STARTER PACK 2 TAB BTL PO STA (22:19)
[2024-06-01] MEDS: SULFAMETHOX-TMP 800-160MG 1 EACH TAB PO STA (22:19)
[2024-06-01 22:27] VITALS: BP 121/74; PULSE 71; RESP 17; TEMP 98
--- NOTE | 2024-06-01 22:27 | XR ---
EXAMINATION TYPE: XR foot complete RT DATE OF EXAM: 06/01/2024 CLINICAL HISTORY: Great toe pain and infection. TECHNIQUE: Frontal, lateral, and oblique images of the right foot are obtained. COMPARISON: None FINDINGS: There is no acute fracture/dislocation evident in the right foot. No suspicious bony dest ruction is identified. The joint spaces in the right foot appear within normal limits. Moderate to la rge size inferior calcaneal spur is seen. There is small phlebolith dorsal surface at level of metata rsals seen on lateral view. IMPRESSION: No radiographic evidence for acute osteomyelitis. [facility], , 06/01/2024 10:25 PM
== END 2024-06-01 22:27 | disposition home or self-care (01) ==
LOC: EC 21:49
DX: L03.031 Cellulitis of right toe (principal); Z87.891 Personal history of nicotine dependence
CPT/HCPCS: 99283

== ENCOUNTER 2024-12-26 10:48 | Day surgery (SDC) | payer MEDICARE ==
--- NOTE | 2024-12-25 08:36 | P.HPOR ---
History of Present Illness H&P Date: 12/25/24 Chief Complaint: Right knee pain The patient is a 64-year-old female who presents with progressive right knee pain for the past year worsening recently. She is having pain with any weightbearing activities. She notes intermittent giving way. She has been using a cane. She has tried medications along with injections with only temporary partial relief. Review of Systems Per HPI Past Medical History Past Medical History: Coronary Artery Disease (CAD), Diabetes Mellitus, Hyperlipidemia, Sleep Apnea/CPAP/BIPAP, Thyroid Disorder Additional Past Medical History / Comment(s): coronary artery spasms, USES C PAP MACHINE History of Any Multi-Drug Resistant Organisms: None Reported Past Surgical History: Cholecystectomy, Hysterectomy, Joint Replacement Additional Past Surgical History / Comment(s): left knee replacement, Past Anesthesia/Blood Transfusion Reactions: Family History of Problems w/ Anesthesia Additional Past Anesthesia/Blood Transfusion Reaction / Comment(s): sister has diff coming out Smoking Status: Former smoker - Past Family History Daughter(s) Family Medical History: Deep Vein Thrombosis (DVT) Sister(s) Family Medical History: Cancer Medications and Allergies Home Medications Medication Instructions Recorded Confirmed Type Diltiazem Cd [Cardizem CD] 120 mg PO DAILY #30 cap.er.24h 09/10/19 12/21/24 Rx Empagliflozin [Jardiance] 25 mg PO DAILY 12/21/24 12/21/24 History Glimepiride 3 mg PO BID 12/21/24 12/21/24 History Ibuprofen [Motrin Ib] 400 mg PO Q8H PRN 12/21/24 12/21/24 History Levothyroxine Sodium 175 mcg PO DAILY 12/21/24 12/21/24 History Rosuvastatin [Crestor] 20 mg PO DAILY 12/21/24 12/21/24 History Allergies Allergy/AdvReac Type Severity Reaction Status Date / Time No Known Allergies Allergy Verified 12/21/24 14:51 Physical Examination - Knee right Appearance: effusion Varus alignment in stance: 10 degrees Tenderness with palpation: anterior, medial Pain: throughout ROM Gait: limping ROM: extension: -10 degrees ROM: flexion: 100 degrees Crepitus with motion: Yes Strength: extension: 5/5 Strength: flexion: 5/5 Meniscal tests: medial meniscal tests: positive, medial joint line pain: positive Results The patient is a well-developed well-nourished female approximately 5 foot 2, 233 pounds of endomorphic habitus. HEENT exam is nonfocal, neck is supple. She has painless passive motion of the right hip. Straight leg raise is negative. She is tender about the medial joint line of the right knee. Collaterals are stable, Nieves's negative, Juliann's is equivocal. She has genu varum alignment. She has an antalgic gait pattern. - Diagnostic results Knee x-ray: image reviewed (X-rays of the right knee obtained the office show severe medial compartment osteoarthrosis with [id number] changes along with subchondral sclerosis.) Assessment and Plan Assessment: Right knee severe medial compartment osteoarthrosis Obesity Plan: I talked to the patient at length regarding her condition along with treatment options. At this point she is quite symptomatic having pain and mechanical symptoms related to her right knee osteoarthrosis despite conservative measures. After a thorough discussion she opts to proceed with surgery. We will plan to proceed with her a right total knee arthroplasty. Risks and benefits were discussed at length in layman's terms. We will institute DVT prophylaxis postoperatively.
[~2024-12-26 10:48] MED LIST: HYDROmorphone 0.5 MG/0.5 ML SYRINGE IVP PRN; TRANEXAMIC 1,000 MG/100ML-NACL 1,000 MG in SALINE 1 100ML.BAG IVPB PRN
[2024-12-26] MEDS: IV FLUID CONTINUATION 1,000 ML IV ONE (11:08)
[2024-12-26 11:34] LABS: Glucose,Whole Blood 242 mg/dL (70-110)
[2024-12-26] MEDS: ACETAMINOPHEN TAB 500 MG TAB PO PRN (11:38)
[2024-12-26] MEDS: MELOXICAM 7.5 MG TAB PO PRN (11:39)
[2024-12-26] MEDS: LACTATED RINGERS 1,000 ML IV SCH (11:42)
[2024-12-26] MEDS: INSULIN LISPRO (HumaLOG) 100 UNIT/ML 10 mL VL SQ ONE (11:48)
[2024-12-26 12:11] LABS: African American GFR (CKD) >90 (>60 ml/min/1.73 sqM); Anion Gap 12 mmol/L; Blood Urea Nitrogen 14 mg/dL (7-17); Calcium 9.5 mg/dL (8.4-10.2); Carbon Dioxide 20 mmol/L (22-30); Chloride 104 mmol/L (98-107); Glucose 262 mg/dL (74-99); Non-African American GFR(CKD) >90 (>60 ml/min/1.73 sqM); Sodium 136 mmol/L (137-145)
[2024-12-26] MEDS: fentaNYL (PF) 50 MCG/ML 2 ML AMP IVP STA (12:13)
[2024-12-26] MEDS: MIDAZOLAM 2 MG/2 ML VIAL IV PRN (12:13)
[2024-12-26 12:18] LABS: Potassium 4.9 mmol/L (3.5-5.1)
[2024-12-26] MEDS: ONDANSETRON 4 MG/2 ML VIAL IVP ONE (12:33)
[2024-12-26] MEDS: DEXAMETHASONE SOD PHOSPHATE 4 MG/ML 1 ML VIAL IV ONE (12:33)
[2024-12-26] MEDS ORDERED: MIDAZOLAM 2 MG/2 ML VIAL ONE (12:44)
[2024-12-26] MEDS ORDERED: TRANEXAMIC 1,000 MG/100ML-NACL PREMIX BAG ONE (12:44)
[2024-12-26] MEDS ORDERED: SODIUM CHLORIDE 0.9% (PF) 10 ML VIAL ONE (12:44)
[2024-12-26] MEDS ORDERED: DEXAMETHASONE SOD PHOSPHATE 4 MG/ML 1 ML VIAL ONE (12:44)
[2024-12-26] MEDS ORDERED: GLYCOPYRROLATE 0.2 MG/ML 2 ML VIAL ONE (12:44)
[2024-12-26] MEDS ORDERED: PROPOFOL 10 MG/ML 20 ML VIAL IV ONE (12:44)
[2024-12-26] MEDS ORDERED: ROPIVACAINE 5 MG/ML 30 ML VIAL ONE (12:44)
[2024-12-26] MEDS ORDERED: PHENYLEPHRINE-0.9% NACL SYG 1,000 MCG/10 ML SYRINGE ONE (12:44)
[2024-12-26] MEDS: ceFAZolin 2 GM in DEXTROSE 5% IN WATER 50 ML IVPB PRN (12:49)
[2024-12-26] MEDS ORDERED: MAGNESIUM HYDROXIDE 2,400 MG/30 ML CUP PO PRN (14:19)
[2024-12-26] MEDS ORDERED: hydrOXYzine pamoate 25 MG CAP PO PRN (14:19)
[2024-12-26] MEDS ORDERED: HYDROcodone/APAP 7.5-325MG 1 EACH TAB PO PRN (14:19)
[2024-12-26] MEDS ORDERED: NALOXONE 0.4 MG/ML 1 ML VIAL IV PRN (14:19)
[2024-12-26] MEDS ORDERED: ONDANSETRON 4 MG/2 ML VIAL IVP PRN (14:19)
[2024-12-26] MEDS ORDERED: HYDROmorphone 0.5 MG/0.5 ML SYRINGE IVP PRN (14:19)
[2024-12-26] MEDS: LACTATED RINGERS 1,000 ML IV ONE (14:20)
--- NOTE | 2024-12-26 14:39 | P.OP ---
Date of Procedure: 12/26/24 Preoperative Diagnosis: Right knee severe tricompartmental osteoarthrosis Postoperative Diagnosis: Same Procedure(s) Performed: Right total knee arthroplastycementedposterior stabilized Implants: DePuy attune size 4 cemented femoral component, size 4 cemented tibial component with a 14 x 50 mm stem extension, 11 mm articular surface, 32 mm cemented patellar component. This a posterior stabilized implant. Anesthesia: regional, spinal Surgeon: Lg Baumann Board Filler #1: Aron Cevallos Estimated Blood Loss (ml): 50 Pathology: none sent Condition: stable Disposition: PACU Indications for Procedure: The patient is a 64-year-old female who presents with progressive right knee pain secondary to osteoarthrosis despite conservative measures. A discussion of the risks and benefits of operative intervention versus continued conservative measures was made with the patient. She opted to proceed with surgery. Operative risks include infection, neurovascular injury, development of blood clots, fracture, possible component loosening/failure and possible need for subsequent procedures was discussed. I also discussed her being at higher risk secondary to her BMI and glucose control. Informed consent was obtained. Operative Findings: As below Description of Procedure: The patient was brought to the operating room, and after induction of spinal anesthesia the right lower extremity was prepped and draped in a normal fashion. The tourniquet was inflated to 270 mm marker. A longitudinal incision extending 3 finger breaths above the superior pole of patella extending to the medial aspect the tibial tubercle was then made. The skin and subcutaneous tissues were divided sharply. Electrocautery was used for hemostasis. A medial parapatellar arthrotomy was performed. The medial soft tissues to include the superficial and deep portions of the medial collateral ligament were elevated subperiosteally. The patella was everted. A portion of the retropatellar fat pad was excised sharply. The anterior cruciate ligament was sacrificed. Blunt retractors were placed. A starting hole was made in the distal femur 1 cm anterior to the posterior cruciate ligament origin. An intramedullary femoral guide was then inserted planning on 5 valgus distal cut with 9 mm distal resection. The cutting block was pinned in place. The distal cut was then made. The posterior referencing sizing guide was utilized. I felt size 4 was most appropriate. 3 of external rotation was built into the system and verified off the trans-epicondylar axis and the posterior condyles. The cutting block was pinned in place. The anterior, posterior, and chamfer cuts then made. Bone fragments were removed. The intercondylar guide was placed and the notch cut was made with a sagittal saw. The bone block was removed in one fragment. The trial component was then placed. There is good anterior to posterior and medial to lateral fit. The distal peg holes were drilled. The trial component was removed. Attention was then paid towards preparing the proximal tibia. An extra medullary guide was utilized in line with the tibial shaft and second metatarsal distally. I planned on 2 mm resection from the medial compartment. The cutting block was pinned in place. The proximal tibial cut was then made. The bone was removed in one fragment. The remnants of the medial and lateral menisci were excised at the capsular junction with electrocautery. The tibia sized most appropriately at size 4. The trial femoral and tibial components were placed along with a 11 mm articular surface. I was able to obtain full flexion and extension with internal and external rotation. After several flexion and extension cycles, the tibial rotation was marked with electrocautery line with the medial one third of the tibial tubercle. Attention was then paid towards preparing the patella. A patella reamer was utilized taking stem to 14 mm of bone stock. A good flush cut was made. The patella sized most appropriately 32 mm. The peg holes were drilled. The trial components placed. I had good patellofemoral tracking with no hands technique. The trial components were then removed. The tibia was prepared in the appropriate rotation with appropriate drill and keel punch. The posterior osteophytes were removed with a curved osteotome. The flexion and extension gaps were checked and felt to be symmetric at 11 mm. A trial components were then removed. The bony surfaces were prepared with pulsatile lavage and dried. The tibial component was then cemented place was fully seated. Excess cement was removed. The femoral component cemented place and was fully seated. Excess cement was removed. The trial 11 mm articular surface was placed and the knee was put in full extension. The patella component was cemented place. After the cement had sufficiently hardened, the knee was again taken through a range of motion. Again I was able to obtain full flexion and extension with varus and valgus stress. The trial 11 mm articular surface was removed and the final one inserted. This was fully seated. Care was taken to avoid any soft tissue interposition. Pulsatile lavage was again utilized. The medial parapatellar arthrotomy was closed with #2 Ethibond suture. The tourniquet was deflated with approximately 60 minutes total tourniquet time. Final hemostasis was obtained with the cautery. There was minimal bleeding therefore a deep drain was not placed. The subcutaneous tissues were reapproximated with interrupted 2-0 Vicryl sutures. The skin was reapproximated with 3-0 subcuticular strata fix suture. Skin tape and adhesive was applied. A sterile dressing was applied. The patient was awoken from sedation and transferred to recovery room in good condition. Blood loss was estimated at 50 mL. No complications were incurred. Sponge and needle counts were correct at the end of the case. Aron WADE assisted during the major components of this case to include exposure, bone resection, implantation, and closure.
[2024-12-26 14:56] LABS: Glucose,Whole Blood 210 mg/dL (70-110)
--- NOTE | 2024-12-26 15:09 | XR ---
EXAMINATION TYPE: XR knee limited RT DATE OF EXAM: 12/26/2024 3:00 PM INDICATION: Patient age:Female; 64 years old; Reason for study: Evaluation for Postop abnormality and alignment; PHH. pain COMPARISON: Right knee radiograph 09/27/2018, 10/04/2024 TECHNIQUE: The Right knee(s) was examined in frontal and lateral projections. FINDINGS: Status post total knee arthroplasty changes with hardware in appropriate alignment and in tact. No evidence of fracture. Subcutaneous lucencies and lucencies within the joint consistent with surgical changes. IMPRESSION: Status post total knee arthroplasty changes with hardware intact and appropriate alignment. No fractu res identified. [facility], , 12/26/2024 3:07 PM
--- NOTE | 2024-12-26 16:07 | P.ANPRN ---
Procedure Note - Anesthesia - Nerve Block Performed Right Adductor Canal Infusion Time Out Performed: Yes (1213) Date of Procedure: 12/26/24 Procedure Start Time: 12:14 Procedure Stop Time: 12:19 Location of Patient: PreOp Indication: Acute Post-Operative Pain, Requested by Surgeon Specifically requested for management of pain by : Lg Baumann Sedation Type: Sedate with meaningful contact maintained Preparation: Sterile Prep Position: Supine Catheter Depth at Skin (cm): 6 Catheter: Indwelling Needle Types: Pajunk Needle Gauge: 18 Ultrasound used to visualize needle placement: Yes Ultrasound used to observe medication spread: Yes Injectate: 0.5% Ropivacaine (see comment for volume) (15cc+5cc nacl pf+2mg decadron) Blood Aspirated: No Pain Paresthesia on Injection Noted: No Resistance on Injection: Normal Image Stored and Saved: Yes Events: Uneventful and Well Tolerated
--- NOTE | 2024-12-26 16:11 | P.ANPRN ---
Procedure Note - Anesthesia - Nerve Block Performed Right iPack Single Time Out Performed: Yes (1213) Date of Procedure: 12/26/24 Procedure Start Time: 12:20 Procedure Stop Time: 12:24 Location of Patient: PreOp Indication: Acute Post-Operative Pain, Requested by Surgeon Specifically requested for management of pain by DrJustino: Lg Baumann Sedation Type: Sedate with meaningful contact maintained Preparation: Sterile Prep Position: Supine Catheter: None Needle Types: Pajunk Needle Gauge: 21 Ultrasound used to visualize needle placement: Yes Ultrasound used to observe medication spread: Yes Injectate: 0.5% Ropivacaine (see comment for volume) (15cc+5cc nacl pf+2mg decadron) Blood Aspirated: No Pain Paresthesia on Injection Noted: No Resistance on Injection: Normal Image Stored and Saved: Yes Events: Uneventful and Well Tolerated
[2024-12-26] MEDS: HYDROmorphone 0.5 MG/0.5 ML SYRINGE IVP PRN (16:32)
[2024-12-26 16:47] LABS: Glucose,Whole Blood 237 mg/dL (70-110)
[2024-12-26] MEDS ORDERED: DEXTROSE 50% SYRINGE 50 ML IVP PRN ×2 (16:55)
[2024-12-26] MEDS: INSULIN LISPRO (HumaLOG) 100 UNIT/ML 10 mL VL SQ SCH (17:05)
[2024-12-26 20:09] LABS: Glucose,Whole Blood 294 mg/dL (70-110)
[2024-12-26] MEDS: GLIMEPIRIDE 1 MG TAB PO SCH (20:55)
[2024-12-26] MEDS: SENNOSIDES-DOCUSATE SODIUM 1 EACH TAB PO SCH (20:55)
--- NOTE | 2024-12-26 21:29 | CONS ---
CONSULTATION REASON FOR CONSULTATION: Advice regarding diabetes, other medical issues, other medications requested by Orthopedics. HISTORY OF PRESENT ILLNESS: This 64-year-old woman with a past history of diabetes mellitus, CAD, underwent right total knee joint arthroplasty. There is no history of any fever, rigors, or chills at this time. The blood sugars are slightly elevated. PAST MEDICAL HISTORY: Reviewed. Includes CAD, diabetes mellitus, and hyperlipidemia. Rest of the chart is also reviewed. HOME MEDICATIONS: Reviewed. Include Crestor. Dose and rest of medications reviewed. ALLERGIES: None. FAMILY HISTORY: Cancer. SOCIAL HISTORY: Remote history of smoking. REVIEW OF SYSTEMS: Fourteen-point review of systems negative except as mentioned earlier. PHYSICAL EXAMINATION: VITAL SIGNS: Pulse 76, blood pressure 110/82, and respirations 20. HEENT: Conjunctivae are normal. NECK: No jugular venous distention. CARDIOVASCULAR: S1, S2. ABDOMEN: Soft. EXTREMITIES: Legs, status post arthroplasty. NERVOUS SYSTEM: Nonfocal. LABORATORY DATA: Sodium 136. ASSESSMENT: 1. Status post right total knee arthroplasty. 2. Diabetes mellitus type 2. 3. Coronary artery disease. 4. Hyperlipidemia. 5. Multiple complex medical issues. RECOMMENDATIONS AND DISCUSSION: This 64-year-old woman admitted after knee surgery. At this time, I recommend to continue the current medications and current treatment. I would recommend insulin coverage. Resume the home medications. We will follow the patient closely with you. DVT prophylaxis. Recommend close followup with primary physician after discharge. MMASHLIEL / MICHELLEN: [phone] /
[2024-12-26] MEDS: ceFAZolin 2 GM in DEXTROSE 5% IN WATER 50 ML IVPB SCH (21:37)
[2024-12-27 06:11] LABS: Glucose,Whole Blood 272 mg/dL (70-110)
[2024-12-27] MEDS: LEVOTHYROXINE 88 MCG TAB PO SCH (06:36)
[2024-12-27 08:07] VITALS: BP 123/75; PULSE 77; RESP 17; TEMP 97.5
[2024-12-27] MEDS: ATORVASTATIN 40 MG TAB PO SCH (08:35)
[2024-12-27] MEDS: DILTIAZEM CD 120 MG CAP.ER.24H PO SCH (08:35)
[2024-12-27] MEDS: HYDROcodone/APAP 5-325MG 1 EACH TAB PO PRN (08:35)
[2024-12-27] MEDS: RIVAROXABAN 10 MG TAB PO SCH (08:36)
[2024-12-27] MEDS: DAPAGLIFLOZIN PROPANEDIOL 10 MG TABLET PO SCH (08:36)
[2024-12-27 09:02] LABS: Basophils # (A) 0 X 10*3/uL (0.00-0.10); Basophils % (A) 0 %; Eosinophils # (A) 0 X 10*3/uL (0.04-0.35); Eosinophils % (A) 0 %; HCT 38.1 % (37.2-46.3); HGB 13.1 g/dL (12.0-15.0); Lymphocytes # (A) 0.86 X 10*3/uL (0.90-5.00); Lymphocytes % (A) 9.8 %; MCH 31.6 pg (27.0-32.0); MCHC 34.4 g/dL (32.0-37.0); Mean Platelet Volume 9.3 FL (9.5-12.2); Monocytes # (A) 0.41 X 10*3/uL (0.20-1.00); Monocytes % (A) 4.7 %; NRBC Per 100 WBC 0 X 10*3/uL (0.00-0.01); Neutrophils # (A) 7.46 X 10*3/uL (1.80-7.70); Neutrophils % (A) 85.3 %; Platelet Count 192 X 10*3/uL (140-440); RBC 4.14 X 10*6/uL (4.10-5.20); RDW 12.4 % (11.5-14.5); WBC 8.75 X 10*3/uL (4.50-10.00)
[2024-12-27 11:20] LABS: Glucose,Whole Blood 241 mg/dL (70-110)
--- NOTE | 2024-12-27 12:23 | P.DS ---
Providers Date of admission: 12/26/2024` Expected date of discharge: 12/27/24 Attending physician: Lg Baumann Consults: 12/26/24 14:19 Consult Physician Routine Consulting Provider: Elizabet Johnson Consult Reason/Comments: medical management s/p right total knee arthroplasty Do you want consulting provider notified?: Yes Primary care physician: Jani White Hospital Course: Date of admission: 12/26/2024 Date of discharge: 12/27/2024 Admission diagnosis: Right knee osteoarthritis Discharge diagnosis: Same Attending physician: Dr. Baumann Surgical procedures: Right total knee arthroplasty Brief history: Patient is a 64-year-old female with a history of progressive primary right knee osteoarthritis. At this point patient has failed conservative treatment measures and has opted to proceed with a elective right total knee arthroplasty. Hospital course: Details of patient's surgery can be found in operative report. Patient tolerated the procedure well and was subsequently transported to orthopedic floor. Patient's orthopeidc and medical care was provided daily. Patient had daily laboratory tests performed for evaluation of overall blood counts. Patient had daily physical therapy to include strengthening range of motion as well as education with walker ambulation. Patient was treated with Xarelto for their postoperative DVT prophylaxis during their inpatient stay. Patient was noted to have a relatively uneventful postoperative course. Patient reported satisfactory pain control with oral pain medications by postoperative day 1. Patient showed satisfactory progress with physical therapy. Patient moved steadily through the program and had no difficulty meeting the goals by postoperative day 1. Given patient's otherwise satisfactory course and having met physical therapy goals, plan is to discharge patient home with health services on postoperative day 1. Discharge condition/disposition: Patient will be discharged home with health services in stable condition. Discharge medications: Instructions are given on resumption of patient's normal daily medications per primary care recommendation, in addition patient will be prescribed Oxbow; senna; Eliquis 2.5 mg twice daily x 2 weeks. Discharge instructions: 1. Wound care and infection precautions, keep incision dry and covered while showering, no lotions, creams, moisturizers. No soaking, tubs, pools, hottubs. Do not scrub over the incision. 2. Weight-bear as tolerated with walker / cane until follow-up. 3. Ice and elevate when necessary. Do not exceed 20 minutes per hour with ice pack. 4. Utilize compression sleeve until seen at first follow up appointment. 5. Visiting nursing care. 6. Home physical therapy including home CPM. 7. Pain meds and anticoagulants per prescription. 8. Pain medication has potential to cause constipation. Increase oral fluid and fiber intake. Contact primary care provider if you have not had a bowel movement within 48 hours after discharge 9. No anti-inflammatory medication until discussed at first post operative visit, this including Motrin, Aleve, Mobic, Diclofenac. 10. Follow up in office at 2 weeks postop with Federico Clarke PA-C / Aron Cevallos PA-C 11. Follow up with your primary care doctor 7-10 days after discharge. 12. Contact [facility] with any questions, . Assessment: Right knee osteoarthritis Procedures: Right total knee arthroplasty Patient Condition at Discharge: Good Plan - Discharge Summary Discharge Rx Participant: Yes New Discharge Prescriptions: New Apixaban [Eliquis] 2.5 mg PO BID #60 tab HYDROcodone/APAP 5-325MG [Oxbow 5-325] 1 - 2 tab PO Q6HR PRN #36 tab PRN Reason: Pain Sennosides/Docusate Sodium [Senna Plus 8.6-50 mg Softgel] 1 each PO DAILY #20 capsule No Action Diltiazem Cd [Cardizem CD] 120 mg PO DAILY #30 cap.er.24h Empagliflozin [Jardiance] 25 mg PO DAILY Rosuvastatin [Crestor] 20 mg PO DAILY Ibuprofen [Motrin Ib] 400 mg PO Q8H PRN PRN Reason: Pain Glimepiride 3 mg PO BID Levothyroxine Sodium 175 mcg PO DAILY Discharge Medication List Diltiazem Cd [Cardizem CD] 120 mg PO DAILY #30 cap.er.24h 09/10/19 [Rx] Empagliflozin [Jardiance] 25 mg PO DAILY 12/21/24 [History] Glimepiride 3 mg PO BID 12/21/24 [History] Ibuprofen [Motrin Ib] 400 mg PO Q8H PRN 12/21/24 [History] Levothyroxine Sodium 175 mcg PO DAILY 12/21/24 [History] Rosuvastatin [Crestor] 20 mg PO DAILY 12/21/24 [History] Apixaban [Eliquis] 2.5 mg PO BID #60 tab 12/27/24 [Rx] HYDROcodone/APAP 5-325MG [Oxbow 5-325] 1 - 2 tab PO Q6HR PRN #36 tab 12/27/24 [Rx] Sennosides/Docusate Sodium [Senna Plus 8.6-50 mg Softgel] 1 each PO DAILY #20 capsule 12/27/24 [Rx] Follow up Appointment(s)/Referral(s): [facility], [NON-STAFF] - 1-2 Days ([facility] will call you to schedule your in home nursing and physical therapy visits. ) Aron Cevallos, PAC [PHYSICIAN COLLAR TURNER] - 2 Weeks [facility],Equipment [NON-STAFF] - As Needed (*Call [facility] once home to arrange delivery of the Continuous Passive Motion (CPM) machine. ) Patient Instructions/Handouts: Knee Replacement (GEN) Activity/Diet/Wound Care/Special Instructions: Orthopedic Discharge Instructions: 1. Wound care and infection precautions, keep incision dry and covered while showering, no lotions, creams, moisturizers. No soaking, pools, hot tubs. Do not scrub over incision. 2. Weight-bear as tolerated with walker / cane until follow-up. 3. Ice and elevate when necessary. Do not exceed 20 minutes per hour with ice pack. 4. Utilize compression sleeve until seen at first follow up appointment. 5. Pain meds and anticoagulants per prescription. 6. Pain medication has potential to cause constipation. Increase oral fluid and fiber intake. Contact primary care provider if you have not had a bowel movement within 48 hours after discharge. 7. No anti-inflammatory medication until discussed at first post operative vi sit, this including Motrin, Aleve, Mobic, Diclofenac. 8. Follow up in office at 2 weeks postop with Federico Clarke PA-C / Aron Cevallos PA-C 9. Follow up with your primary care doctor 7-10 days after discharge. 10. Contact [facility] with any questions, . Keep incision clean, dry, intact. While showering, cover fusion tape with Saran wrap. Keep fusion tape on until follow-up appointment in office in 2 weeks. Discharge Disposition: HOME WITH HOME HEALTH SERVICES
--- NOTE | 2024-12-27 12:27 | P.PN ---
Subjective Progress Note Date: 12/27/24 Principal diagnosis: Right knee osteoarthritis Patient was seen at bedside this morning lying in the semirecumbent position with dressing present over right knee. Patient says she did work with therapy this morning walked up and down steps. Patient says pain is controlled with oral medication. Patient says she has been urinating since surgery without issue. Patient says she does have a walker for home. Patient says she is looking forward to going home later today. Objective - Vital Signs Vital signs: Vital Signs Temp 97.5 F L 12/27/24 07:10 Pulse 77 12/27/24 07:10 Resp 17 12/27/24 07:10 BP 123/75 12/27/24 07:10 Pulse Ox 94 L 12/27/24 07:10 FiO2 Intake & Output 12/26/24 12/27/24 12/27/24 18:59 06:59 18:59 Intake Total 1200 360 Output Total 50 Balance 1150 360 Weight 106.8 kg Intake: IV 1200 Oral 360 Output: Estimated Blood Loss 50 Other: Voiding Method Toilet # Voids 2 - Exam Right knee: Incision is clean, dry, and intact. The exofin fusion tape is in good condit ion. There is minimal soft tissue swelling and ecchymosis surrounding the medial and lateral aspects of the incision. Calf is soft, no tenderness with palpation. Plantar flexion, dorsiflexion, EHL, FHL are intact. Sensory exam to light touch throughout the extremity is intact, dorsal pedis pulses 2+. - Labs CBC & Chem 7: 12/27/24 03:25 12/26/24 11:22 Labs: Abnormal Lab Results - Last 24 Hours (Table) 12/26/24 12/26/24 12/26/24 Range/Units 11:22 12:13 14:45 MPV (9.5-12.2) FL Lymphocytes # (0.90-5.00) X 10*3/uL Eosinophils # (0.04-0.35) X 10*3/uL Sodium 136 L (137-145) mmol/L Carbon Dioxide 20 L (22-30) mmol/L Glucose 262 H (74-99) mg/dL POC Glucose (mg/dL) 210 H (70-110) mg/dL Hemoglobin A1c 11.3 H (<=6.0) % 12/26/24 12/26/24 12/27/24 Range/Units 16:46 20:08 03:25 MPV (9.5-12.2) FL Lymphocytes # (0.90-5.00) X 10*3/uL Eosinophils # (0.04-0.35) X 10*3/uL Sodium (137-145) mmol/L Carbon Dioxide (22-30) mmol/L Glucose (74-99) mg/dL POC Glucose (mg/dL) 237 H 294 H (70-110) mg/dL Hemoglobin A1c 11.2 H (<=6.0) % 12/27/24 12/27/24 12/27/24 Range/Units 03:25 06:09 11:19 MPV 9.3 L (9.5-12.2) FL Lymphocytes # 0.86 L (0.90-5.00) X 10*3/uL Eosinophils # 0 L (0.04-0.35) X 10*3/uL Sodium (137-145) mmol/L Carbon Dioxide (22-30) mmol/L Glucose (74-99) mg/dL POC Glucose (mg/dL) 272 H 241 H (70-110) mg/dL Hemoglobin A1c (<=6.0) % Assessment and Plan Assessment: 1. Right knee osteoarthritis -Postop day 1 status post right total knee arthroplasty Plan: 1. Right knee osteoarthritis -right total knee arthroplasty performed yesterday, 12/26/2024. Patient stable at bedside this morning. Patient does have walker for home. Discharge home today with health services. 2. Appreciate medical management 3. Pain management -[place] 4. DVT prophylaxis -Xarelto in hospital. Going home with Eliquis 2.5 mg twice daily x 2 weeks 5. GI prophylaxis - senna 6. PT/OT -weightbearing as tolerated walker 7. Encourage incentive spirometer use 8. Discharge planning -home today with health services Time with Patient: Less than 30
--- NOTE | 2024-12-27 12:59 | PN ---
PROGRESS NOTE DATE OF SERVICE: 12/27/2024 SUBJECTIVE: This 64-year-old woman who was admitted after right total knee arthroplasty, is improving significantly; however, the blood sugar is elevated. Hemoglobin A1c is more than 11. Recommended a short course of Lantus insulin and to be followed by Dr. White in the outpatient setting to consider adjustment of home diabetic medications. No fever. No chest pain. No palpitations. PHYSICAL EXAMINATION: VITAL SIGNS: Pulse is 77, blood pressure 110/74, and respirations 17. CHEST: Clear to auscultation. CARDIOVASCULAR: S1, S2. ABDOMEN: Soft. LEGS: Status post surgery. LABORATORY DATA: Reviewed. ASSESSMENT: 1. Status post right total knee arthroplasty. 2. Diabetes mellitus, type 2, uncontrolled with hemoglobin A1c 11.2. 3. Coronary artery disease. 4. Hyperlipidemia. 5. Multiple complex medical issues. RECOMMENDATIONS AND DISCUSSION: I recommend to continue current management and continue symptomatic treatment. As mentioned earlier, I would recommend Lantus 15 units subcu daily and monitor blood sugars closely with Dr. White and continue to monitor. Continue rest of medications. DVT prophylaxis. Other medications per Orthopedic Surgery. MMODL / IJN: [id number] /
--- NOTE | 2024-12-27 13:03 | P.PN ---
Progress Note - Text 12/27/24 633am 64-year-old female status post total knee replacement. Patient pain control with a solution running at 8 cc an hour with a VAS of 2. Dressing clean dry and intact. Plan to continue On-Q pump infusion
[2024-12-27 13:48] VITALS: BMI 43.0
== END 2024-12-27 14:17 | disposition home health service (06) ==
LOC: OR 10:48 → 4SSUR 14:28 → OR 12-27 14:17
PROVIDERS: ATTEND Orthopaedic Surgery
DX: M17.11 Unilateral primary osteoarthritis, right knee (principal); E66.9 Obesity, unspecified; E78.5 Hyperlipidemia, unspecified; G47.30 Sleep apnea, unspecified; I25.10 Atherosclerotic heart disease of native coronary artery without angina pectoris; E11.9 Type 2 diabetes mellitus without complications; G89.18 Other acute postprocedural pain; Z79.01 Long term (current) use of anticoagulants; Z79.84 Long term (current) use of oral hypoglycemic drugs; Z79.890 Hormone replacement therapy; Z79.899 Other long term (current) drug therapy; Z87.891 Personal history of nicotine dependence; Z90.49 Acquired absence of other specified parts of digestive tract; Z90.710 Acquired absence of both cervix and uterus
CPT/HCPCS: 97161; 64448; 64473; 86900; 86901; 80048; 85025; 86850; 83036 ×2; 73560; 27447; C1713 ×2; C1776; C1751; J2250; J1100; J0690 ×2; J2405; J3010; J1171